=== PATIENT | male | born 1955 | race Caucasian/White ===

== ENCOUNTER 2021-05-04 21:57 | Inpatient (IN) | payer MEDICAID ==
--- NOTE | 2021-05-04 22:01 | ED ---
Recheck HPI - General Stated Complaint: Covid+ Time Seen by Provider: 05/04/21 21:59 Source: RN notes reviewed, old records reviewed Mode of arrival: EMS Limitations: no limitations - History of Present Illness Initial Comments: This is a 65-year-old male who is accepted in transfer. Patient comes from outside facility for known coronavirus positive. Severely hypoxic although not significantly short of breath. Patient is been on Decadron for 5-6 days for coronavirus does have no pneumonia and his been having increased blood sugars. Patient just feeling weak and a little fatigue and around to emergency department, presents by EMS, history obtained from EMS and patient's transfer paperwork. Patient denying any current chest pain, currently afebrile. MD Complaint: abnormal lab (Known coronavirus positive) -: days(s) (5) Returns Today for: other (Shortness of breath) Symptoms Since Prior Visit: fever Context: planned re-check Associated Symptoms: fever, chills, shortness of breath, malaise Treatments Prior to Arrival: other medications - Related Data Allergies Allergy/AdvReac Type Severity Reaction Status Date / Time No Known Allergies Allergy Verified 05/04/21 22:34 Review of Systems ROS Statement: Those systems with pertinent positive or pertinent negative responses have been documented in the HPI. ROS Other: All systems not noted in ROS Statement are negative. General Exam General appearance: alert, in no apparent distress, anxious Head exam: Present: atraumatic, normocephalic, normal inspection Eye exam: Present: normal appearance, PERRL, EOMI. Absent: scleral icterus, conjunctival injection, periorbital swelling ENT exam: Present: normal exam, mucous membranes moist Neck exam: Present: normal inspection. Absent: tenderness, meningismus, lymphadenopathy Respiratory exam: Present: normal lung sounds bilaterally. Absent: respiratory distress, wheezes, rales, rhonchi, stridor Cardiovascular Exam: Present: regular rate, normal rhythm, normal heart sounds. Absent: systolic murmur, diastolic murmur, rubs, gallop, clicks GI/Abdominal exam: Present: soft, normal bowel sounds. Absent: distended, tenderness, guarding, rebound, rigid Extremities exam: Present: normal inspection, full ROM, normal capillary refill. Absent: tenderness, pedal edema, joint swelling, calf tenderness Back exam: Present: normal inspection Neurological exam: Present: alert, oriented X3, CN II-XII intact Psychiatric exam: Present: normal affect, normal mood Skin exam: Present: warm, dry, intact, normal color. Absent: rash Course Vital Signs 05/04/21 22:25 Temperature 98.1 F Pulse Rate 86 Respiratory 20 Rate Blood Pressure 122/77 O2 Sat by Pulse 82 L Oximetry - Reevaluation(s) Reevaluation #1: 05/04/21 22:56 Medical records reviewed 05/04/21 22:56 Transferring paperwork is reviewed Reevaluation #2: 05/04/21 22:56 Patient's oxygenation is improving about 90 on high flow Reevaluation #3: 05/04/21 22:56 patient is in no significant rust for distress or tachypnea state, not fatigued or tired Reevaluation #4: 05/04/21 22:56 Patient has not been vaccinated - Consultations Consultation #1: Spoke with sound who will admit this patient Medical Decision Making - Medical Decision Making 65 male positive coronavirus. Patient is no medical and has not been vaccinated, patient also hyperglycemic secondary to steroid use patient will be admitted - Radiology Data Radiology results: report reviewed (Chest x-rays positive for covert and pneumonia), image reviewed Critical Care Time Critical Care Time: Yes Total Critical Care Time: 31 Disposition Clinical Impression: Acute pulmonary edema, Pneumonia due to COVID-19 virus, Hyperglycemia, Hypoxia Disposition: ADMITTED IP TO THIS HOSP Condition: Serious Is patient prescribed a controlled substance at d/c from ED?: No Referrals: None,Stated [Primary Care Provider] - 1-2 days
[2021-05-04] MEDS ORDERED: ACETAMINOPHEN TAB 325 MG TAB PO PRN (22:13)
[2021-05-04] MEDS ORDERED: SODIUM CHLORIDE 0.9% 1,000 ML IV STA ×2 (22:14)
[2021-05-04] MEDS ORDERED: NALOXONE 0.4 MG/ML 1 ML VIAL IV PRN (22:53)
[2021-05-04] MEDS ORDERED: ALBUTEROL HFA INHALER INHALATION STA (22:53)
--- NOTE | 2021-05-04 22:58 | XR ---
EXAMINATION TYPE: XR chest 1V portable DATE OF EXAM: 05/04/2021 COMPARISON: 04/26/2021 HISTORY: Difficulty breathing TECHNIQUE: Single view FINDINGS: There is coarse interstitial density in the mid and lower lung yancey. Heart is borderline enlarged. There is no definite pleural effusion. Bony thorax is intact. IMPRESSION: There is some interstitial pneumonia in the mid and lower lung yancey that is increased c ompared to the outside comparison exam from 3 hours ago.
[2021-05-05] MEDS ORDERED: DEXAMETHASONE SOD PHOSPHATE 4 MG/ML 1 ML VIAL IV SCH
--- NOTE | 2021-05-05 03:15 | P.HPIM ---
History of Present Illness H&P Date: 05/05/21 Patient is a 65-year-old male with a PMH of hypertension, hyperlipidemia type II DM who was transferred from [facility] where he presented earlier today with complaints of shortness of breath and fatigue. The patient reports that over the past 1-2 weeks, he has been having gradually worsening of symptoms. He had tested positive for COVID-19 on April 29. He reports significantly decreased exercise tolerance and anorexia with poor oral intake. Also reports chills with occasional diarrhea. He however denied chest pain, shortness of breath, cough, nausea, vomiting. Denied headaches, weakness, numbness, tingling, visual disturbances. As per the transferring facility docu mentation, the patient was noted to be 64% on room air upon arrival at that facility and was immediately started on high flow nasal cannula. He was also noted to be hypoglycemic with blood glucose 754, and remaining laboratory evaluation showing troponin of less than 0.017, WBC count 5.69, hemoglobin 14.4, platelets 451, BUN 70, creatinine 3.89, sodium 128, potassium 4.5, chloride 88, CO2 15, AST 32, ALT 27, anion gap 25, osmolality 314, lactic acid 4.3, magnesium 2.8, proBNP 305, and INR 1.4. The patient was subsequently transferred to [facility] for COVID-19 pneumonia, DKA, and GIN. Chest x-ray at our facility revealed an atypical pneumonia pattern. Review of systems: Pertinent positives and negatives as discussed in HPI, a complete review of systems was performed and all other systems are negative. Physical examination: General: non toxic, in mild respiratory distress, appears at stated age, obese, on high flow nasal cannula Derm: no unusual rashes/lesions no unusual ecchymoses, warm, dry Head: atraumatic, normocephalic, symmetric Eyes: EOMI, no lid lag, anicteric sclera, pupils equal round reactive to light ENT: Nose and ears atraumatic, no thrush, no pharyngeal erythema Neck: No thyromegaly, no cervical lymphadenopathy, trachea midline, supple Mouth: no lip lesion, mucus membranes moist Cardiovascular: S1S2 reg, no murmur, positive posterior tibial pulse bilateral, no edema, capillary refill less than 2 seconds Lungs: Diffuse coarse breath sounds throughout, no wheezing or rales noted, no accessory muscle use Abdominal: soft, nontender to palpation, no guarding, no appreciable organomegaly, normal bowel sounds Ext: no gross muscle atrophy, muscle strength 5 out of 5 in all 4 extremities grossly, no contractures, Neuro: CN II-XI grossly intact, light touch intact all 4 extremities, finger to nose within normal limits, Psych: Alert, oriented, appropriate affect Assessment/plan COVID-19 pneumonitis with acute hypoxic respiratory failure -Continue with Decadron -Zinc, vitamin C, vitamin D, melatonin -Pulmonary consult -Supplemental oxygen -Isolation precautions Mild DKA -Monitor electrolytes -Lispro insulin sliding scale with blood glucose monitoring -Check A1c -IV fluids -Hold oral hypoglycemics GIN on chronic kidney disease -Likely secondary to poor oral intake -Continue with IV fluids and monitor for now Hyponatremia, likely pseudohyponatremia in setting of hyperglycemia -Monitor BMP for now Chronic conditions: Hypertension, hyperlipidemia -Continue with home meds DVT prophylaxis -Lovenox subq The patient is admitted with an anticipated greater than 2 midnight stay for evaluation of COVID CODE STATUS: Full Code Discussed with: patient Anticipated discharge date: 3-[address]: Home Past Medical History - Past Family History Father Family Medical History: Hyperlipidemia Medications and Allergies Home Medications Medication Instructions Recorded Confirmed Type Atorvastatin [Lipitor] 20 mg PO HS 05/04/21 05/04/21 History Fenofibrate Nanocrystallized 145 mg PO DAILY 05/04/21 05/04/21 History [Fenofibrate] Metoprolol Tartrate [Lopressor] 100 mg PO BID 05/04/21 05/04/21 History Pioglitazone [Actos] 45 mg PO DAILY 05/04/21 05/04/21 History glyBURIDE/METFORMIN HCL 2 tab PO BID 05/04/21 05/04/21 History [glyBURIDE/METFORMIN HCL 5-500 mg] hydroCHLOROthiazide [Hydrodiuril] 12.5 mg PO DAILY 05/04/21 05/04/21 History sitaGLIPtin PHOSPHATE [Januvia] 100 mg PO DAILY 05/04/21 05/04/21 History Allergies Allergy/AdvReac Type Severity Reaction Status Date / Time No Known Allergies Allergy Verified 05/04/21 23:16 Physical Exam Vitals: Vital Signs Temp Pulse Resp BP Pulse Ox 05/04/21 23:37 93 L 05/04/21 22:33 75 20 136/80 90 L 05/04/21 22:25 98.1 F 86 20 122/77 82 L Intake and Output 05/04/21 05/04/21 05/05/21 14:59 22:59 06:59 Other: Weight 99.79 kg
[2021-05-05 03:27] LABS: Glucose,Whole Blood 587 mg/dL (75-99)
[2021-05-05 04:01] LABS: Calcium 8.8 mg/dL (8.4-10.2); Potassium 5.2 mmol/L (3.5-5.1)
[2021-05-05 06:41] LABS: Albumin 3.1 g/dL (3.5-5.0); Calcium 8.9 mg/dL (8.4-10.2); Magnesium 2.6 mg/dL (1.6-2.3); Phosphorus 5.4 mg/dL (2.5-4.5); Potassium 4.8 mmol/L (3.5-5.1); Total Bilirubin 0.5 mg/dL (0.2-1.3); Total Protein 5.8 g/dL (6.3-8.2)
[2021-05-05 06:47] LABS: Basophils # (A) 0.1 k/uL (0-0.2); Basophils % (A) 1 %; Eosinophils % (A) 0 %; HGB 13.1 gm/dL (13.0-17.5); Hypochromasia Moderate; Lymphocytes # (A) 0.5 k/uL (1.0-4.8); Lymphocytes % (A) 11 %; MCH 29.4 pg (25.0-35.0); MCHC 30.6 g/dL (31.0-37.0); MCV 96.1 fL (80.0-100.0); Mean Platelet Volume 7.9; Monocytes # (A) 0.2 k/uL (0-1.0); Monocytes % (A) 3 %; Neutrophils # (A) 3.9 k/uL (1.3-7.7); Neutrophils % (A) 81 %; Platelet Count 477 k/uL (150-450); RBC 4.47 m/uL (4.30-5.90); RDW 14.6 % (11.5-15.5); WBC 4.8 k/uL (3.8-10.6)
[2021-05-05] MEDS: SODIUM CHLORIDE 0.9% 1,000 ML IV SCH ×5 (06:55→23:01)
[2021-05-05] MEDS ORDERED: INSULIN ASPART (NovoLOG) 100 UNIT/ML VIAL SQ SCH ×2 (07:30)
[2021-05-05] MEDS ORDERED: Potassium Replacement Protocol 1 EACH MISC MISCELLANE PRN (08:00)
[2021-05-05] MEDS ORDERED: Magnesium Replacement Protocol 1 EACH MISC MISCELLANE PRN (08:00)
[2021-05-05] MEDS ORDERED: INSULIN REGULAR BOLUS (FROM DRIP BAG) IV ONE (08:00)
[2021-05-05] MEDS: ALBUTEROL HFA INHALER INHALATION SCH ×4 (08:19→20:06)
[2021-05-05] MEDS: ZINC SULFATE 220 MG CAP PO SCH (08:42)
[2021-05-05] MEDS: CHOLECALCIFEROL 25 MCG (1000 IU) TABLET PO SCH (08:42)
[2021-05-05] MEDS: ENOXAPARIN 40 MG/0.4 ML SYRINGE SQ SCH (08:42)
[2021-05-05] MEDS: ASCORBIC ACID 500 MG TAB PO SCH (08:42)
[2021-05-05] MEDS ORDERED: REMDESIVIR 200 MG in SODIUM CHLORIDE 0.9% 250 ML IVPB ONE (08:45)
[2021-05-05] MEDS ORDERED: DEXAMETHASONE SOD PHOSPHATE 10 MG/ML 1 ML VIAL IV SCH (09:00)
[2021-05-05] MEDS ORDERED: dexAMETHasone 2 MG TAB PO SCH (09:00)
--- NOTE | 2021-05-05 09:16 | XR ---
EXAMINATION TYPE: XR chest 1V DATE OF EXAM: 05/05/2021 COMPARISON: 05/04/2021 HISTORY: Difficulty breathing FINDINGS: There are bilateral pleural effusions with cardiomegaly and bibasilar infiltrate. There is a diffuse interstitial pattern. IMPRESSION: 1. Bilateral infiltrate and pleural effusion correlate for pneumonia versus CHF with pulmonary edema.
[2021-05-05 09:19] LABS: VBG PH 7.3 (7.31-7.41)
[2021-05-05] MEDS: INSULIN REGULAR 100 UNIT in SODIUM CHLORIDE 0.9% 100 ML IV SCH ×3 (09:21→21:57)
[2021-05-05 09:37] LABS: Phosphorus 5.2 mg/dL (2.5-4.5); Potassium 5.2 mmol/L (3.5-5.1)
[2021-05-05 09:40] LABS: INR 1.1 (<1.2); Prothrombin Time 11.7 sec (9.0-12.0)
[2021-05-05 10:16] LABS: Glucose,Whole Blood >600 mg/dL (75-99)
[2021-05-05 10:30] LABS: C Reactive Protein 17.4 mg/dL (<1.0)
[2021-05-05 10:59] LABS: Glucose,Whole Blood >600 mg/dL (75-99)
--- NOTE | 2021-05-05 11:30 | P.CNPUL ---
History of Present Illness Consult date: 05/05/21 Reason for consult: dyspnea, pneumonia History of present illness: 65-year-old male patient transferred from [facility] because of a COVID-19 related pneumonia. The patient became symptomatic approximately 6 days ago. He has a son at home was also infected with COVID-19. He developed tiredness, fatigue, fever, increased dyspnea cough and his condition progressively got worse and for that reason he ended up coming to [facility] and following that he got transferred to us for further evaluation and treatment. Note that he was tested positive on 04/26/2021. He has been receiving Decadron for the past 5-6 days. He did not see any significant improvement. His condition was progressively getting worse. I saw this patient in intensive care unit. After being on the regular oxygen, he was placed on high flow oxygen 6 L with an FiO2 of 90% to bring his saturation above 90%. Chest x-ray showing diffuse bilateral pulmonary infiltrates mainly involving the lower lobes. White cell count was at 4.8. His hemoglobin was at 13.9. Glucose was 673. LDH level was 1284, CRP level was 17.4, his d-dimer was at 1.23. He has chronic kidney disease along with diabetes and hypertension. He has a BUN of 72 coronary creatinine of 2.97. His blood sugar was above 600 and he was started on a insulin drip for blood sugar control which is currently running at 10 units an hour. He is also on normal saline at rate of 200 mL an hour. He is lethargic. Is responsive his communicating. No focal neurological deficits. No other complaints otherwise for now. He is on Decadron 6 mg daily. He is on also on Lovenox 40 mg subcu daily. Review of Systems Constitutional: Reports fatigue, Reports fever, Reports lethargy, Reports poor appetite, Reports weakness Eyes: denies as per HPI, denies blurred vision, denies bulging eye, denies decreased vision, denies diplopia, denies discharge, denies dry eye, denies irritation, denies itching, denies pain, denies photophobia, denies loss of peripheral vision, denies loss of vision, denies tunnel vision/blind spots Ears: deny: decreased hearing, ear discharge, earache, tinnitus Ears, nose, mouth and throat: Reports as per HPI Breasts: absent: as per HPI, gynecomastia Cardiovascular: Reports decreased exercise tolerance, Reports dyspnea on exertion Respiratory: Reports cough, Reports dyspnea Genitourinary: Reports as per HPI Musculoskeletal: Reports as per HPI, Reports muscle weakness Musculoskeletal: absent: ankle pain, ankle stiffness, ankle swelling, as per HPI, elbow pain, elbow stiffness, elbow swelling, foot pain, foot stiffness, foot swelling, hand pain, hand stiffness, hand swelling, hip pain, hip stiffness, hip swelling, knee pain, knee stiffness, knee swelling, shoulder pain, shoulder stiffness, shoulder swelling, wrist pain, wrist stiffness, wrist swelling Integumentary: Reports as per HPI Neurological: Reports as per HPI, Reports weakness Psychiatric: Reports as per HPI Endocrine: Reports as per HPI Allergic/Immunologic: Reports as per HPI Past Medical History Past Medical History: Diabetes Mellitus, Hyperlipidemia, Hypertension, Renal Disease Additional Past Surgical History / Comment(s): hernia surgery - Past Family History Father Family Medical History: Hyperlipidemia Medications and Allergies Home Medications Medication Instructions Recorded Confirmed Type Atorvastatin [Lipitor] 20 mg PO HS 05/04/21 05/04/21 History Fenofibrate Nanocrystallized 145 mg PO DAILY 05/04/21 05/04/21 History [Fenofibrate] Metoprolol Tartrate [Lopressor] 100 mg PO BID 05/04/21 05/04/21 History Pioglitazone [Actos] 45 mg PO DAILY 05/04/21 05/04/21 History glyBURIDE/METFORMIN HCL 2 tab PO BID 05/04/21 05/04/21 History [glyBURIDE/METFORMIN HCL 5-500 mg] hydroCHLOROthiazide [Hydrodiuril] 12.5 mg PO DAILY 05/04/21 05/04/21 History sitaGLIPtin PHOSPHATE [Januvia] 100 mg PO DAILY 05/04/21 05/04/21 History Allergies Allergy/AdvReac Type Severity Reaction Status Date / Time No Known Allergies Allergy Verified 05/04/21 23:16 Physical Exam Vitals: Vital Signs Temp Pulse Pulse Resp BP BP Pulse Ox 05/05/21 11:00 78 28 H 185/81 93 L 05/05/21 10:45 84 33 H 141/74 90 L 05/05/21 10:30 75 33 H 141/74 91 L 05/05/21 10:25 98.1 F 89 20 144/80 83 L 07/29/21 10:15 85 27 H 89 L 05/05/21 08:00 72 20 144/80 05/05/21 06:20 89 16 144/80 99 05/05/21 04:09 88 L 05/05/21 02:33 73 20 135/83 90 L 05/05/21 01:33 74 20 139/85 89 L 05/05/21 00:33 71 22 135/78 88 L 05/04/21 23:37 93 L 05/04/21 22:33 75 20 136/80 90 L 05/04/21 22:25 98.1 F 86 20 122/77 82 L Intake and Output 05/04/21 05/05/21 05/05/21 22:59 06:59 14:59 Other: Voiding Method Urinal Weight 99.79 kg lethargic, sleepy, calm and comfortable, does not seem to be in acute breathing distress and the patient is currently on high flow oxygen Head exam was generally normal. There was no scleral icterus or corneal arcus. Mucous membranes were moist. Neck was supple and without jugular venous distension, thyromegaly, or carotid bruits. Carotids were easily palpable bilaterally. There was no adenopathy. Lungs sounds are diminished bilaterally and the patient has crackles in lung bases, overall air entry is equal and symmetrical. Cardiac exam revealed the PMI to be normally situated and sized. The rhythm was regular and no extrasystoles were noted during several minutes of auscultation. The first and second heart sounds were normal and physiologic splitting of the second heart sound was noted. There were no murmurs, rubs, clicks, or gallops. Abdominal exam revealed normal bowel sounds. The abdomen was soft, non-tender, and without masses, organomegaly, or appreciable enlargement of the abdominal aorta. Examination of the extremities revealed easily palpable radial, femoral and pedal pulses. There was no cyanosis, clubbing or edema. Examination of the skin revealed no evidence of significant rashes, suspicious appearing nevi or other concerning lesions. Neurologically the patient is global weakness. Otherwise there is no focal neurological deficit admitted this point in time he is awake and oriented 3. Results - Laboratory Findings CBC and BMP: 05/05/21 06:16 05/05/21 08:03 PT/INR, D-dimer PT 11.7 sec (9.0-12.0) 05/05/21 08:03 INR 1.1 (<1.2) 05/05/21 08:03 D-Dimer 1.23 mg/L FEU (<0.60) H 05/05/21 08:03 Abnormal lab findings: Abnormal Labs 05/05/21 05/05/21 05/05/21 03:15 03:26 06:16 MCHC 30.6 L Plt Count 477 H Lymphocytes # 0.5 L D-Dimer VBG pH VBG pCO2 VBG HCO3 Sodium 132 L Potassium 5.2 H Carbon Dioxide 11 L BUN 66 H Creatinine 2.95 H Glucose 647 H* POC Glucose (mg/dL) 587 H Phosphorus Magnesium Lactate Dehydrogenase C-Reactive Protein Total Protein Albumin 05/05/21 05/05/21 05/05/21 06:16 08:03 08:03 MCHC Plt Count Lymphocytes # D-Dimer 1.23 H VBG pH VBG pCO2 VBG HCO3 Sodium 136 L 135 L Potassium 5.2 H Carbon Dioxide 11 L 10 L BUN 69 H 72 H Creatinine 3.00 H 2.97 H Glucose 673 H* 677 H* POC Glucose (mg/dL) Phosphorus 5.4 H 5.2 H Magnesium 2.6 H Lactate Dehydrogenase 1284 H C-Reactive Protein 17.4 H Total Protein 5.8 L Albumin 3.1 L 05/05/21 05/05/21 05/05/21 08:26 10:05 10:57 MCHC Plt Count Lymphocytes # D-Dimer VBG pH 7.30 L VBG pCO2 26 L VBG HCO3 12 L Sodium Potassium Carbon Dioxide BUN Creatinine Glucose POC Glucose (mg/dL) >600 H >600 H Phosphorus Magnesium Lactate Dehydrogenase C-Reactive Protein Total Protein Albumin - Diagnostic Findings Chest x-ray: image reviewed Assessment and Plan Plan: 1 acute COVID-19 related pneumonia. The patient was tested positive on 04/26/2021. Symptoms started approximately 6 days ago and he developed progre ssive constitutional symptoms, progressive respiratory failure, progressive hypoxic respiratory failure. He has been taken Decadron on outpatient basis for the past 4-5 days. The patient is on Nexium extubated. 2 acute hypoxic respiratory failure currently on high flow oxygen 60 L with an FiO2 of 90% 3 shortness of breath secondary to above 4 diabetes mellitus with steroid-induced hyperglycemia currently on an insulin drip for blood sugar control 5 chronic kidney disease, likely diabetic nephropathy 6 hypertension 7 hyperlipidemia 8 elevated inflammatory markers secondary to COVID-19 related pneumonia. Plan Keep high flow oxygen and titrate the flow to maintain a saturation above 90% Continue Decadron 6 mg IV every 24 hours Start the patient on Tocilizumab vent protocol With the patient on Lovenox 40 mg subcu every 24 hours Put the patient on zinc oxide, vitamin C and vitamin D Proceed monitoring respiratory status and daily chest x-rays High risk of developing active dependent respiratory failure because of his progressive rapid worsening in his respiratory status over this past 1 week Note that the patient is not vaccinated for COVID-19 Insulin drip for blood sugar control IV fluids at the rate of 150 mL an hour of normal saline for the next 24 hours and it used to rate accordingly following that Hold oral hypoglycemic medications resume metoprolol given a dose of 100 mg po BID We'll continue to follow Time with Patient: Greater than 30
[2021-05-05] MEDS ORDERED: METOPROLOL TARTRATE 50 MG TAB PO SCH (12:00)
[2021-05-05 12:22] LABS: Glucose,Whole Blood >600 mg/dL (75-99)
[2021-05-05 12:23] LABS: Potassium 3.8 mmol/L (3.5-5.1)
[2021-05-05 13:02] LABS: Glucose,Whole Blood >600 mg/dL (75-99)
[2021-05-05] MEDS ORDERED: TOCILIZUMAB 800 MG in SODIUM CHLORIDE 0.9% 60 ML IV ONE (13:30)
[2021-05-05 14:07] LABS: Glucose,Whole Blood 501 mg/dL (75-99)
--- NOTE | 2021-05-05 14:46 | P.PN ---
Subjective Progress Note Date: 05/05/21 (Delayed charting seen at 8 AM.) Principal diagnosis: shortness of breath Patient is a 65-year-old male with past medical history of diabetes mellitus type 2, hypertension, and dyslipidemia who initially presented to [facility] where he was diagnosed with DKA and COVID-19. He was subsequently transferred here secondary to hypoxia. He initially tested posi tive for Covid on April 29. On arrival to the ER here sodium 132, potassium 5.2, carbon dioxide 11, anion gap 23, BUN 66, creatinine 2.95, glucose of 467. He was also noted to have bilateral interstitial infiltrates on chest x-ray. He was started on Decadron as well as sliding scale insulin. In the morning of 05/05 he was hypoxic despite airvo and nonrebreather when getting up to go to the bathroom. Laboratory analysis was reviewed which showed severe DKA with a carbon dioxide of 11 and an anion gap of 23. Patient was started on an insulin drip. Pulmonary critical care was contacted and arrangements were made to admit the patient to the ICU. He is also started on Remdesivir and consideration were made for Toci. Patient seen and examined at bedside. He reports that he is feeling s ignificantly short of breath and very thirsty. He denies any chest discomfort. He has not been vaccinated against COVID-19. He denies any nausea or vomiting. He reports he has never had DKA in the past. He is very hard of hearing. General: Ill appearing, moderate distress], appears at stated age Derm: warm, dry Head: atraumatic, normocephalic, symmetric Eyes: EOMI, no lid lag, anicteric sclera Mouth: no lip lesion, mucus membranes moist Cardiovascular: S1S2 reg, no murmur, positive posterior tibial pulse bilateral, Lungs: Rhonchi bilaterally, 3 word conversational dyspnea, sternal retractions, on airvo Abdominal: soft, nontender to palpation, no guarding, no appreciable organomegaly Ext: no gross muscle atrophy, no edema, no contractures Neuro: CN II-XI grossly intact, no focal neuro deficits Psych: Alert, oriented, appropriate affect COVID-19 pneumonia with acute hypoxic respiratory failure -Start Rem and consider toic -Decadron -Check stat CRP and LDH -Transferred ICU -Pulmonary consultation -Patient wouldn't want to be intubated if necessary -Case discussed with pulmonary Diabetic ketoacidosis -Start insulin drip -Every 4 hour electrolytes -IV fluid resuscitation changed to normal saline at 200 -Check A1c -Hold oral diabetic medications Hyperkalemia -Secondary to fluid shift -Follow electrolytes Acute kidney injury versus chronic kidney disease -Insert Ag -Strict I's and O's -Avoid nephrotoxic agents -Fluid resuscitation -If no improvement in creatinine in a.m. consult nephrology Hypertension, controlled -Secondary to DKA will hold hydrochlorothiazide -Resume metoprolol Dyslipidemia -Fenofibrate on hold -Resume statins On the morning of 05/05 he was hypoxic despite airflow and nonrebreather when getting up to go to the bathroom. Laboratory analysis was reviewed which showed severe DKA with a carbon dioxide of 11 and an anion gap of 23. Patient was started on an insulin drip. Pulmonary critical care was contacted and arrangements were made to admit the patient to the ICU. He is also started on Remdesivir and consideration were made for Toci. Stat labs were ordered and reviewed. Case discussed with Dr. vera and by myself. A total of 35 minutes of critical care time was spent on this complex patient managing his DKA. Active Medications Acetaminophen (Acetaminophen Tab 325 Mg Tab) 650 mg PO Q4HR PRN PRN Reason: Fever>101 Albuterol Sulfate (Albuterol Hfa Inhaler) 2 puff INHALATION RT-QID [facility] Last Admin: 05/05/21 11:44 Dose: 2 puff Documented by: Ascorbic Acid (Ascorbic Acid 500 Mg Tab) 1,000 mg PO DAILY [facility] Last Admin: 05/05/21 08:42 Dose: 1,000 mg Documented by: Cholecalciferol (Cholecalciferol 25 Mcg (1000 Iu) Tablet) 125 mcg PO DAILY [facility] Last Admin: 05/05/21 08:42 Dose: 125 mcg Documented by: Dexamethasone Sodium Phosphate (Dexamethasone Sod Phosphate 10 Mg/Ml 1 Ml Vial) 6 mg IV DAILY [facility] Last Admin: 05/05/21 10:37 Dose: 6 mg Documented by: Enoxaparin Sodium (Enoxaparin 40 Mg/0.4 Ml Syringe) 40 mg SQ DAILY [facility] Last Admin: 05/05/21 08:42 Dose: 40 mg Documented by: Insulin Human Regular 100 unit (/ Sodium Chloride) 101 mls @ 10.079 mls/hr IV .Q10H2M [facility]; Protocol Last Titration: 05/05/21 14:14 Dose: 0.14 units/kg/hr, 14 mls/hr Documented by: Sodium Chloride (Saline 0.9%) 1,000 mls @ 150 mls/hr IV .Q6H40M [facility] Last Admin: 05/05/21 13:15 Dose: 150 mls/hr Documented by: Melatonin (Melatonin 5 Mg Tablet) 5 mg PO [facility] Metoprolol Tartrate (Metoprolol Tartrate 50 Mg Tab) 100 mg PO BID [facility] Last Admin: 05/05/21 12:07 Dose: 100 mg Documented by: Miscellaneous Information (Magnesium Replacement Protocol 1 Each Misc) 1 each MISCELLANE DAILY PRN; Protocol PRN Reason: Per Protocol Miscellaneous Information (Potassium Replacement Protocol 1 Each Misc) 1 each MISCELLANE DAILY PRN PRN Reason: Per Protocol Naloxone HCl (Naloxone 0.4 Mg/Ml 1 Ml Vial) 0.2 mg IV Q2M PRN PRN Reason: Opioid Reversal Zinc Sulfate (Zinc Sulfate 220 Mg Cap) 220 mg PO DAILY [facility] Last Admin: 05/05/21 08:42 Dose: 220 mg Documented by: Objective - Vital Signs Vital signs: Vital Signs Temp 98.4 F 05/05/21 10:45 Pulse 55 L 05/05/21 14:00 Resp 26 H 05/05/21 14:00 BP 171/89 05/05/21 14:00 Pulse Ox 85 L 05/05/21 14:00 Intake & Output 05/04/21 05/05/21 05/05/21 18:59 06:59 18:59 Intake Total 922.258 Output Total 695 Balance 227.258 Weight 99.79 kg 99.79 kg Intake: IV 600 Sodium Chloride 0.9% 1, 600 000 ml @ 150 mls/hr IV . Q6H40M [facility] Rx#:[id number] Intake, IV Titration 322.258 Amount Insulin Regular 100 unit 72.258 In Sodium Chloride 0.9% 100 ml @ 0.1 UNITS/KG/HR 10.079 mls/hr IV .Q10H2M [facility] Rx#:[id number] Remdesivir 200 mg In 250 Sodium Chloride 0.9% 250 ml @ 250 mls/hr IVPB ONCE ONE Rx#:[id number] Output: Urine 695 Other: Voiding Method Urinal - Labs CBC & Chem 7: 05/05/21 06:16 05/05/21 11:47 Labs: Abnormal Lab Results - Last 24 Hours (Table) 05/05/21 05/05/21 05/05/21 Range/Units 03:15 03:26 06:16 MCHC 30.6 L (31.0-37.0) g/dL Plt Count 477 H (150-450) k/uL Lymphocytes # 0.5 L (1.0-4.8) k/uL D-Dimer (<0.60) mg/L FEU VBG pH (7.31-7.41) VBG pCO2 (37-51) mmHg VBG HCO3 (24-28) mmol/L Sodium 132 L (137-145) mmol/L Potassium 5.2 H (3.5-5.1) mmol/L Carbon Dioxide 11 L (22-30) mmol/L BUN 66 H (9-20) mg/dL Creatinine 2.95 H (0.66-1.25) mg/dL Glucose 647 H* (74-99) mg/dL POC Glucose (mg/dL) 587 H (75-99) mg/dL Phosphorus (2.5-4.5) mg/dL Magnesium (1.6-2.3) mg/dL Lactate Dehydrogenase (313-618) U/L C-Reactive Protein (<1.0) mg/dL Total Protein (6.3-8.2) g/dL Albumin (3.5-5.0) g/dL 05/05/21 05/05/21 05/05/21 Range/Units 06:16 08:03 08:03 MCHC (31.0-37.0) g/dL Plt Count (150-450) k/uL Lymphocytes # (1.0-4.8) k/uL D-Dimer 1.23 H (<0.60) mg/L FEU VBG pH (7.31-7.41) VBG pCO2 (37-51) mmHg VBG HCO3 (24-28) mmol/L Sodium 136 L 135 L (137-145) mmol/L Potassium 5.2 H (3.5-5.1) mmol/L Carbon Dioxide 11 L 10 L (22-30) mmol/L BUN 69 H 72 H (9-20) mg/dL Creatinine 3.00 H 2.97 H (0.66-1.25) mg/dL Glucose 673 H* 677 H* (74-99) mg/dL POC Glucose (mg/dL) (75-99) mg/dL Phosphorus 5.4 H 5.2 H (2.5-4.5) mg/dL Magnesium 2.6 H (1.6-2.3) mg/dL Lactate Dehydrogenase 1284 H (313-618) U/L C-Reactive Protein 17.4 H (<1.0) mg/dL Total Protein 5.8 L (6.3-8.2) g/dL Albumin 3.1 L (3.5-5.0) g/dL 05/05/21 05/05/21 05/05/21 Range/Units 08:26 10:05 10:57 MCHC (31.0-37.0) g/dL Plt Count (150-450) k/uL Lymphocytes # (1.0-4.8) k/uL D-Dimer (<0.60) mg/L FEU VBG pH 7.30 L (7.31-7.41) VBG pCO2 26 L (37-51) mmHg VBG HCO3 12 L (24-28) mmol/L Sodium (137-145) mmol/L Potassium (3.5-5.1) mmol/L Carbon Dioxide (22-30) mmol/L BUN (9-20) mg/dL Creatinine (0.66-1.25) mg/dL Glucose (74-99) mg/dL POC Glucose (mg/dL) >600 H >600 H (75-99) mg/dL Phosphorus (2.5-4.5) mg/dL Magnesium (1.6-2.3) mg/dL Lactate Dehydrogenase (313-618) U/L C-Reactive Protein (<1.0) mg/dL Total Protein (6.3-8.2) g/dL Albumin (3.5-5.0) g/dL 05/05/21 05/05/21 05/05/21 Range/Units 11:47 12:18 13:01 MCHC (31.0-37.0) g/dL Plt Count (150-450) k/uL Lymphocytes # (1.0-4.8) k/uL D-Dimer (<0.60) mg/L FEU VBG pH (7.31-7.41) VBG pCO2 (37-51) mmHg VBG HCO3 (24-28) mmol/L Sodium (137-145) mmol/L Potassium (3.5-5.1) mmol/L Carbon Dioxide 11 L (22-30) mmol/L BUN 69 H (9-20) mg/dL Creatinine 3.00 H (0.66-1.25) mg/dL Glucose 550 H* (74-99) mg/dL POC Glucose (mg/dL) >600 H >600 H (75-99) mg/dL Phosphorus (2.5-4.5) mg/dL Magnesium (1.6-2.3) mg/dL Lactate Dehydrogenase (313-618) U/L C-Reactive Protein (<1.0) mg/dL Total Protein (6.3-8.2) g/dL Albumin (3.5-5.0) g/dL 05/05/21 Range/Units 14:05 MCHC (31.0-37.0) g/dL Plt Count (150-450) k/uL Lymphocytes # (1.0-4.8) k/uL D-Dimer (<0.60) mg/L FEU VBG pH (7.31-7.41) VBG pCO2 (37-51) mmHg VBG HCO3 (24-28) mmol/L Sodium (137-145) mmol/L Potassium (3.5-5.1) mmol/L Carbon Dioxide (22-30) mmol/L BUN (9-20) mg/dL Creatinine (0.66-1.25) mg/dL Glucose (74-99) mg/dL POC Glucose (mg/dL) 501 H (75-99) mg/dL Phosphorus (2.5-4.5) mg/dL Magnesium (1.6-2.3) mg/dL Lactate Dehydrogenase (313-618) U/L C-Reactive Protein (<1.0) mg/dL Total Protein (6.3-8.2) g/dL Albumin (3.5-5.0) g/dL
[2021-05-05 14:57] LABS: Hemoglobin A1C 15.3 % (4.0-6.0)
[2021-05-05 15:05] LABS: Glucose,Whole Blood 497 mg/dL (75-99)
[2021-05-05 15:33] LABS: ABG Base Excess -9.1 mmol/L; ABG HCO3 16 mmol/L (21-25); ABG PCO2 25 mmHg (35-45); ABG TCO2 17 mmol/L (19-24); Allen Test Performed? Yes
[2021-05-05 15:34] LABS: ABG PO2 48 mmHg (83-108)
[2021-05-05] MEDS ORDERED: SODIUM BICARB 8.4% 50 ML SYR (1 MEQ/ML) IV STA (15:38)
[2021-05-05 16:02] LABS: Glucose,Whole Blood 437 mg/dL (75-99)
[2021-05-05 16:48] LABS: Phosphorus 2.3 mg/dL (2.5-4.5); Potassium 3.5 mmol/L (3.5-5.1)
[2021-05-05 16:54] LABS: Glucose,Whole Blood 333 mg/dL (75-99)
[2021-05-05 18:09] LABS: Glucose,Whole Blood 279 mg/dL (75-99)
[2021-05-05] MEDS: DEXMEDETOMIDINE/0.9% NACL(PMX) 400 MCG in EMPTY BAG 1 BAG IV SCH ×2 (18:21→22:34)
[2021-05-05 18:48] LABS: Glucose,Whole Blood 223 mg/dL (75-99)
[2021-05-05] MEDS: D5-0.45% NACL WITH KCL 20MEQ/L 1,000 ML IV SCH (18:49)
[2021-05-05] MEDS: ATORVASTATIN 20 MG TAB PO SCH ×2 (20:55→21:39)
[2021-05-05] MEDS: DEXAMETHASONE SOD PHOSPHATE 10 MG/ML 1 ML VIAL IV SCH (20:55)
[2021-05-05] MEDS: MELATONIN 5 MG TABLET PO SCH ×2 (20:55→21:39)
[2021-05-05] MEDS: METOPROLOL TARTRATE 50 MG TAB PO SCH (20:57)
[2021-05-05 20:59] LABS: Potassium 3.4 mmol/L (3.5-5.1)
[2021-05-05 21:29] LABS: Glucose,Whole Blood 168 mg/dL (75-99)
[2021-05-05 21:31] LABS: ABG Base Excess 1.2 mmol/L; ABG HCO3 25 mmol/L (21-25); ABG Oxygen Saturation 94.3 % (94-97); ABG PCO2 37 mmHg (35-45); ABG PH 7.44 (7.35-7.45); ABG PO2 73 mmHg (83-108); ABG TCO2 27 mmol/L (19-24); Allen Test Performed? Yes
[2021-05-05 22:05] LABS: Glucose,Whole Blood 172 mg/dL (75-99)
[2021-05-05] MEDS: hydrALAZINE HCL 20 MG/ML 1 ML VIAL IVP PRN (22:32)
[2021-05-05 23:12] LABS: Glucose,Whole Blood 181 mg/dL (75-99)
[2021-05-06] MEDS: INSULIN REGULAR 100 UNIT in SODIUM CHLORIDE 0.9% 100 ML IV SCH ×3 (00:05→17:39)
[2021-05-06 00:07] LABS: Glucose,Whole Blood 186 mg/dL (75-99)
[2021-05-06] MEDS: D5-0.45% NACL WITH KCL 20MEQ/L 1,000 ML IV SCH ×2 (00:43→08:13)
[2021-05-06 00:56] LABS: Glucose,Whole Blood 166 mg/dL (75-99)
[2021-05-06 02:02] LABS: Glucose,Whole Blood 208 mg/dL (75-99)
[2021-05-06] MEDS: hydrALAZINE HCL 20 MG/ML 1 ML VIAL IVP PRN ×5 (02:07→22:51)
[2021-05-06 03:07] LABS: Glucose,Whole Blood 222 mg/dL (75-99)
[2021-05-06 04:00] LABS: Glucose,Whole Blood 214 mg/dL (75-99)
[2021-05-06 04:39] LABS: Basophils # (A) 0.1 k/uL (0-0.2); Basophils % (A) 1 %; Eosinophils % (A) 0 %; HCT 40.5 % (39.0-53.0); HGB 13.4 gm/dL (13.0-17.5); Lymphocytes # (A) 0.6 k/uL (1.0-4.8); Lymphocytes % (A) 7 %; MCH 29.8 pg (25.0-35.0); MCHC 33.2 g/dL (31.0-37.0); Mean Platelet Volume 7.9; Monocytes # (A) 0.3 k/uL (0-1.0); Monocytes % (A) 4 %; Neutrophils # (A) 6.9 k/uL (1.3-7.7); Neutrophils % (A) 87 %; Phosphorus 2.1 mg/dL (2.5-4.5); Platelet Count 474 k/uL (150-450); Potassium 3.6 mmol/L (3.5-5.1); RDW 14.4 % (11.5-15.5)
[2021-05-06 04:45] LABS: MCV 89.9 fL (80.0-100.0)
[2021-05-06 04:58] LABS: Glucose,Whole Blood 252 mg/dL (75-99)
[2021-05-06 05:32] LABS: ABG HCO3 24 mmol/L (21-25); ABG Oxygen Saturation 92.2 % (94-97); ABG PCO2 32 mmHg (35-45); ABG PH 7.49 (7.35-7.45); ABG PO2 62 mmHg (83-108); ABG TCO2 25 mmol/L (19-24); Allen Test Performed? Yes
[2021-05-06 06:02] LABS: Glucose,Whole Blood 249 mg/dL (75-99)
[2021-05-06] MEDS ORDERED: Potassium Replacement Protocol 1 EACH MISC MISCELLANE PRN (06:15)
[2021-05-06] MEDS: SODIUM CHLORIDE 0.9% 1,000 ML IV SCH ×3 (06:49→11:14)
[2021-05-06] MEDS ORDERED: POTASSIUM CHLORIDE ER 20 MEQ TAB.ER PO SCH (07:00)
[2021-05-06 07:02] LABS: Glucose,Whole Blood 202 mg/dL (75-99)
[2021-05-06] MEDS: DEXMEDETOMIDINE/0.9% NACL(PMX) 400 MCG in EMPTY BAG 1 BAG IV SCH ×2 (07:46→20:25)
[2021-05-06 07:56] LABS: Glucose,Whole Blood 177 mg/dL (75-99)
[2021-05-06] MEDS: ALBUTEROL HFA INHALER INHALATION SCH ×4 (08:01→19:56)
[2021-05-06] MEDS: ZINC SULFATE 220 MG CAP PO SCH (08:12)
[2021-05-06] MEDS: ASCORBIC ACID 500 MG TAB PO SCH (08:13)
[2021-05-06] MEDS: DEXAMETHASONE SOD PHOSPHATE 10 MG/ML 1 ML VIAL IV SCH ×2 (08:13→21:15)
[2021-05-06] MEDS: ENOXAPARIN 40 MG/0.4 ML SYRINGE SQ SCH (08:13)
[2021-05-06] MEDS: CHOLECALCIFEROL 25 MCG (1000 IU) TABLET PO SCH (08:13)
[2021-05-06] MEDS: METOPROLOL TARTRATE 50 MG TAB PO SCH ×2 (08:14→21:16)
[2021-05-06] MEDS: FENOFIBRATE 160 MG TAB PO SCH (08:16)
[2021-05-06 09:09] LABS: Glucose,Whole Blood 208 mg/dL (75-99)
--- NOTE | 2021-05-06 09:49 | XR ---
EXAMINATION TYPE: XR chest 1V portable DATE OF EXAM: 05/06/2021 COMPARISON: 05/05/2021 HISTORY: Shortness of breath FINDINGS: There are bilateral pleural effusions with cardiomegaly and bibasilar infiltrate. There is a diffuse interstitial pattern. Prominence of the right paratracheal stripe indentation of the trachea may rep resent enlarged thyroid or adenopathy correlate clinically IMPRESSION: 1. Diffuse pleural-parenchymal changes correlate for diffuse pneumonia versus CHF with pulmonary stella a. 2. Prominence of the right paratracheal stripe indentation of the trachea may represent enlarged thyr oid or adenopathy correlate clinically.
[2021-05-06] MEDS ORDERED: DEXTROSE 5% IN WATER 1,000 ML IV ONE (10:13)
--- NOTE | 2021-05-06 10:15 | P.PN ---
Subjective Progress Note Date: 05/06/21 Principal diagnosis: COVID 19 65-year-old male patient transferred from [facility] because of a COVID-19 related pneumonia. The patient became symptomatic approximately 6 days ago. He has a son at home was also infected with COVID-19. He developed tiredness, fatigue, fever, increased dyspnea cough and his condition progressively got worse and for that reason he ended up coming to [facility] and following that he got transferred to us for further evaluation and treatment. Note that he was tested positive on 04/26/2021. He has been receiving Decadron for the past 5-6 days. He did not see any significant improvement. His condition was progressively getting worse. I saw this patient in intensive care unit. After being on the regular oxygen, he was placed on high flow oxygen 6 L with an FiO2 of 90% to bring his saturation above 90%. Chest x-ray showing diffuse bilateral pulmonary infiltrates mainly involving the lower lobes. White cell count was at 4.8. His hemoglobin was at 13.9. Glucose was 673. LDH level was 1284, CRP level was 17.4, his d-dimer was at 1.23. He has chronic kidney disease along with diabetes and hypertension. He has a BUN of 72 coronary creatinine of 2.97. His blood sugar was above 600 and he was started on a insulin drip for blood sugar control which is currently running at 10 units an hour. He is also on normal saline at rate of 200 mL an hour. He is lethargic. Is responsive his communicating. No focal neurological deficits. No other complaints otherwise for now. He is on Decadron 6 mg daily. He is on also on Lovenox 40 mg subcu daily. On 05/06/2021 patient seen in follow-up. He is on BiPAP at 14 and 6 and FiO2 of 100%, with a pulse ox of 94%, he is currently on Precedex at 0.4 mics per kilo per minute. Patient was started on Precedex infusion for agitation, and restlessness, trying to remove his BiPAP mask and get up unassisted. He still remains on insulin infusion at 13 units per hour, he continues on steroid scale insulin infusion protocol. His maintenance IV fluids are D5 half-normal saline of potassium chloride at a rate of 150 ML per hour, his oral intake has been very diminished related to poor oxygenation and been BiPAP dependent. Yesterday he was able to get some lunch, but no dinner because of worsening oxygenation. Today's blood gas was reviewed showing pO2 of 61, pCO2 of 31, and pH of 7.49, and this was done on BiPAP support 14/6 and 100%. Today's labs have been reviewed, white blood cell count is 8.0, hemoglobin is 13.4, platelet count is 474, d-dimer has trended up to 3.6, sodium is 142, potassium 3.6, chloride is 112, CO2 is 22, BUN is 54, and creatinine is 1.78, close this morning is 208, LDH was yesterday at 1284, CRP is 17.4. Patient remains on Decadron at 6 mg IV push twice daily, and his Lovenox dose is 40 mg daily. Today's chest x-ray shows bilateral infiltrates and pleural effusion, diffuse interstitial edema, relatively stable in appearance compared to yesterday. Objective - Vital Signs Vital signs: Vital Signs Temp 96.0 F L 05/06/21 08:00 Pulse 57 L 05/06/21 09:00 Resp 23 05/06/21 09:00 BP 155/78 05/06/21 09:00 Pulse Ox 93 L 05/06/21 09:00 Intake & Output 05/05/21 05/06/21 05/06/21 18:59 06:59 18:59 Intake Total 9198.976 3597.847 544.553 Output Total 1150 1808 450 Balance 627.414 102.847 94.553 Weight 99.79 kg 97.4 kg Intake: IV 1200 1674 456 0.9 24 6 Sodium Chloride 0.9% 1, 1200 1650 450 000 ml @ 150 mls/hr IV . Q6H40M FILI Rx#:[id number] Intake, IV Titration 577.414 236.847 88.553 Amount D5-0.45% NaCl with KCl 150 20Meq/l 1,000 ml @ 150 mls/hr IV .Q6H40M FILI Rx# :[id number] Dexmedetomidine/0.9% NaCl 4.823 103.325 42.16 (Pmx) 400 mcg In Empty Bag 1 bag @ Titrate IV . Q0M FILI Rx#:[id number] Insulin Regular 100 unit 112.591 82.567 In Sodium Chloride 0.9% 100 ml @ 0.1 UNITS/KG/HR 10.079 mls/hr IV .Q10H2M COUNTS INCLUDE 234 BEDS AT THE [facility] Rx#:[id number] Insulin Regular 100 unit 50.955 46.393 In Sodium Chloride 0.9% 100 ml @ Per Protocol IV .Q0M COUNTS INCLUDE 234 BEDS AT THE [facility] Rx#:[id number] Remdesivir 200 mg In 250 Sodium Chloride 0.9% 250 ml @ 250 mls/hr IVPB ONCE ONE Rx#:[id number] Tocilizumab 800 mg In 60 Sodium Chloride 0.9% 60 ml @ 100 mls/hr IV ONCE ONE Rx#:[id number] Output: Urine 1150 1808 450 Other: Voiding Method Indwelling Catheter Indwelling Catheter Indwelling Catheter ABP, PAP, CO, CI - Last Documented Arterial Blood Pressure 172/59 - Exam GENERAL EXAM: R [place], but arousable to voice, 65-year-old white male, on BiPAP support with pressures of 14/6 and FiO2 of 100%, and a pulse ox is 94-96% comfortable in no apparent distress. HEAD: Normocephalic/atraumatic. EYES: Normal reaction of pupils, equal size. Conjunctiva pink, sclera white. NOSE: Clear with pink turbinates. THROAT: No erythema or exudates. NECK: No masses, no JVD, no thyroid enlargement, no adenopathy. CHEST: No chest wall deformity. Symmetrical expansion. LUNGS: Equal air entry with coarse bibasilar crackles CVS: Regular rate and rhythm, normal S1 and S2, no gallops, no murmurs, no rubs ABDOMEN: Soft, nontender. No hepatosplenomegaly, normal bowel sounds, no guarding or rigidity. EXTREMITIES: No clubbing, no edema, no cyanosis, 2+ pulses and upper and lower extremities. MUSCULOSKELETAL: Muscle strength and tone normal. SPINE: No scoliosis or deformity SKIN: No rashes CENTRAL NERVOUS SYSTEM: Alert and oriented -3. No focal deficits, tone is normal in all 4 extremities. PSYCHIATRIC: Alert and oriented -3. Appropriate affect. Intact judgment and insight. - Labs CBC & Chem 7: 05/06/21 04:00 05/06/21 04:00 Labs: Abnormal Lab Results - Last 24 Hours (Table) 07/29/21 07/29/21 07/29/21 Range/Units 06:16 08:03 10:05 Plt Count (150-450) k/uL Lymphocytes # (1.0-4.8) k/uL D-Dimer (<0.60) mg/L FEU ABG pH (7.35-7.45) ABG pCO2 (35-45) mmHg ABG pO2 (83-108) mmHg ABG HCO3 (21-25) mmol/L ABG Total CO2 (19-24) mmol/L ABG O2 Saturation (94-97) % Potassium (3.5-5.1) mmol/L Chloride (98-107) mmol/L Carbon Dioxide (22-30) mmol/L BUN (9-20) mg/dL Creatinine (0.66-1.25) mg/dL Glucose (74-99) mg/dL POC Glucose (mg/dL) >600 H (75-99) mg/dL Hemoglobin A1c 15.3 H (4.0-6.0) % Phosphorus (2.5-4.5) mg/dL Ferritin 746.0 H (22.0-322.0) ng/mL C-Reactive Protein 17.4 H (<1.0) mg/dL 05/05/21 05/05/21 05/05/21 Range/Units 10:57 11:47 12:18 Plt Count (150-450) k/uL Lymphocytes # (1.0-4.8) k/uL D-Dimer (<0.60) mg/L FEU ABG pH (7.35-7.45) ABG pCO2 (35-45) mmHg ABG pO2 (83-108) mmHg ABG HCO3 (21-25) mmol/L ABG Total CO2 (19-24) mmol/L ABG O2 Saturation (94-97) % Potassium (3.5-5.1) mmol/L Chloride (98-107) mmol/L Carbon Dioxide 11 L (22-30) mmol/L BUN 69 H (9-20) mg/dL Creatinine 3.00 H (0.66-1.25) mg/dL Glucose 550 H* (74-99) mg/dL POC Glucose (mg/dL) >600 H >600 H (75-99) mg/dL Hemoglobin A1c (4.0-6.0) % Phosphorus (2.5-4.5) mg/dL Ferritin (22.0-322.0) ng/mL C-Reactive Protein (<1.0) mg/dL 05/05/21 05/05/21 05/05/21 Range/Units 13:01 14:05 15:02 Plt Count (150-450) k/uL Lymphocytes # (1.0-4.8) k/uL D-Dimer (<0.60) mg/L FEU ABG pH (7.35-7.45) ABG pCO2 (35-45) mmHg ABG pO2 (83-108) mmHg ABG HCO3 (21-25) mmol/L ABG Total CO2 (19-24) mmol/L ABG O2 Saturation (94-97) % Potassium (3.5-5.1) mmol/L Chloride (98-107) mmol/L Carbon Dioxide (22-30) mmol/L BUN (9-20) mg/dL Creatinine (0.66-1.25) mg/dL Glucose (74-99) mg/dL POC Glucose (mg/dL) >600 H 501 H 497 H (75-99) mg/dL Hemoglobin A1c (4.0-6.0) % Phosphorus (2.5-4.5) mg/dL Ferritin (22.0-322.0) ng/mL C-Reactive Protein (<1.0) mg/dL 05/05/21 05/05/21 05/05/21 Range/Units 15:26 16:00 16:22 Plt Count (150-450) k/uL Lymphocytes # (1.0-4.8) k/uL D-Dimer (<0.60) mg/L FEU ABG pH (7.35-7.45) ABG pCO2 25 L (35-45) mmHg ABG pO2 48 L* (83-108) mmHg ABG HCO3 16 L (21-25) mmol/L ABG Total CO2 17 L (19-24) mmol/L ABG O2 Saturation 83.0 L (94-97) % Potassium (3.5-5.1) mmol/L Chloride (98-107) mmol/L Carbon Dioxide (22-30) mmol/L BUN 71 H (9-20) mg/dL Creatinine 2.38 H (0.66-1.25) mg/dL Glucose (74-99) mg/dL POC Glucose (mg/dL) 437 H (75-99) mg/dL Hemoglobin A1c (4.0-6.0) % Phosphorus 2.3 L (2.5-4.5) mg/dL Ferritin (22.0-322.0) ng/mL C-Reactive Protein (<1.0) mg/dL 05/05/21 05/05/21 05/05/21 Range/Units 16:53 18:07 18:45 Plt Count (150-450) k/uL Lymphocytes # (1.0-4.8) k/uL D-Dimer (<0.60) mg/L FEU ABG pH (7.35-7.45) ABG pCO2 (35-45) mmHg ABG pO2 (83-108) mmHg ABG HCO3 (21-25) mmol/L ABG Total CO2 (19-24) mmol/L ABG O2 Saturation (94-97) % Potassium (3.5-5.1) mmol/L Chloride (98-107) mmol/L Carbon Dioxide (22-30) mmol/L BUN (9-20) mg/dL Creatinine (0.66-1.25) mg/dL Glucose (74-99) mg/dL POC Glucose (mg/dL) 333 H 279 H 223 H (75-99) mg/dL Hemoglobin A1c (4.0-6.0) % Phosphorus (2.5-4.5) mg/dL Ferritin (22.0-322.0) ng/mL C-Reactive Protein (<1.0) mg/dL 05/05/21 05/05/21 05/05/21 Range/Units 20:34 21:09 21:27 Plt Count (150-450) k/uL Lymphocytes # (1.0-4.8) k/uL D-Dimer (<0.60) mg/L FEU ABG pH (7.35-7.45) ABG pCO2 (35-45) mmHg ABG pO2 73 L (83-108) mmHg ABG HCO3 (21-25) mmol/L ABG Total CO2 27 H (19-24) mmol/L ABG O2 Saturation (94-97) % Potassium 3.4 L (3.5-5.1) mmol/L Chloride 111 H (98-107) mmol/L Carbon Dioxide (22-30) mmol/L BUN 66 H (9-20) mg/dL Creatinine 2.08 H (0.66-1.25) mg/dL Glucose (74-99) mg/dL POC Glucose (mg/dL) 168 H (75-99) mg/dL Hemoglobin A1c (4.0-6.0) % Phosphorus 2.0 L (2.5-4.5) mg/dL Ferritin (22.0-322.0) ng/mL C-Reactive Protein (<1.0) mg/dL 05/05/21 05/05/21 05/06/21 Range/Units 22:02 23:07 00:07 Plt Count (150-450) k/uL Lymphocytes # (1.0-4.8) k/uL D-Dimer (<0.60) mg/L FEU ABG pH (7.35-7.45) ABG pCO2 (35-45) mmHg ABG pO2 (83-108) mmHg ABG HCO3 (21-25) mmol/L ABG Total CO2 (19-24) mmol/L ABG O2 Saturation (94-97) % Potassium (3.5-5.1) mmol/L Chloride (98-107) mmol/L Carbon Dioxide (22-30) mmol/L BUN (9-20) mg/dL Creatinine (0.66-1.25) mg/dL Glucose (74-99) mg/dL POC Glucose (mg/dL) 172 H 181 H 186 H (75-99) mg/dL Hemoglobin A1c (4.0-6.0) % Phosphorus (2.5-4.5) mg/dL Ferritin (22.0-322.0) ng/mL C-Reactive Protein (<1.0) mg/dL 05/06/21 05/06/21 05/06/21 Range/Units 00:54 02:01 03:05 Plt Count (150-450) k/uL Lymphocytes # (1.0-4.8) k/uL D-Dimer (<0.60) mg/L FEU ABG pH (7.35-7.45) ABG pCO2 (35-45) mmHg ABG pO2 (83-108) mmHg ABG HCO3 (21-25) mmol/L ABG Total CO2 (19-24) mmol/L ABG O2 Saturation (94-97) % Potassium (3.5-5.1) mmol/L Chloride (98-107) mmol/L Carbon Dioxide (22-30) mmol/L BUN (9-20) mg/dL Creatinine (0.66-1.25) mg/dL Glucose (74-99) mg/dL POC Glucose (mg/dL) 166 H 208 H 222 H (75-99) mg/dL Hemoglobin A1c (4.0-6.0) % Phosphorus (2.5-4.5) mg/dL Ferritin (22.0-322.0) ng/mL C-Reactive Protein (<1.0) mg/dL 05/06/21 05/06/21 05/06/21 Range/Units 03:55 04:00 04:00 Plt Count 474 H (150-450) k/uL Lymphocytes # 0.6 L (1.0-4.8) k/uL D-Dimer (<0.60) mg/L FEU ABG pH (7.35-7.45) ABG pCO2 (35-45) mmHg ABG pO2 (83-108) mmHg ABG HCO3 (21-25) mmol/L ABG Total CO2 (19-24) mmol/L ABG O2 Saturation (94-97) % Potassium (3.5-5.1) mmol/L Chloride 112 H (98-107) mmol/L Carbon Dioxide (22-30) mmol/L BUN 54 H (9-20) mg/dL Creatinine 1.78 H (0.66-1.25) mg/dL Glucose (74-99) mg/dL POC Glucose (mg/dL) 214 H (75-99) mg/dL Hemoglobin A1c (4.0-6.0) % Phosphorus 2.1 L (2.5-4.5) mg/dL Ferritin (22.0-322.0) ng/mL C-Reactive Protein (<1.0) mg/dL 05/06/21 05/06/21 05/06/21 Range/Units 04:00 04:50 05:29 Plt Count (150-450) k/uL Lymphocytes # (1.0-4.8) k/uL D-Dimer 3.61 H (<0.60) mg/L FEU ABG pH 7.49 H (7.35-7.45) ABG pCO2 32 L (35-45) mmHg ABG pO2 62 L (83-108) mmHg ABG HCO3 (21-25) mmol/L ABG Total CO2 25 H (19-24) mmol/L ABG O2 Saturation 92.2 L (94-97) % Potassium (3.5-5.1) mmol/L Chloride (98-107) mmol/L Carbon Dioxide (22-30) mmol/L BUN (9-20) mg/dL Creatinine (0.66-1.25) mg/dL Glucose (74-99) mg/dL POC Glucose (mg/dL) 252 H (75-99) mg/dL Hemoglobin A1c (4.0-6.0) % Phosphorus (2.5-4.5) mg/dL Ferritin (22.0-322.0) ng/mL C-Reactive Protein (<1.0) mg/dL 05/06/21 05/06/21 05/06/21 Range/Units 06:00 07:00 07:54 Plt Count (150-450) k/uL Lymphocytes # (1.0-4.8) k/uL D-Dimer (<0.60) mg/L FEU ABG pH (7.35-7.45) ABG pCO2 (35-45) mmHg ABG pO2 (83-108) mmHg ABG HCO3 (21-25) mmol/L ABG Total CO2 (19-24) mmol/L ABG O2 Saturation (94-97) % Potassium (3.5-5.1) mmol/L Chloride (98-107) mmol/L Carbon Dioxide (22-30) mmol/L BUN (9-20) mg/dL Creatinine (0.66-1.25) mg/dL Glucose (74-99) mg/dL POC Glucose (mg/dL) 249 H 202 H 177 H (75-99) mg/dL Hemoglobin A1c (4.0-6.0) % Phosphorus (2.5-4.5) mg/dL Ferritin (22.0-322.0) ng/mL C-Reactive Protein (<1.0) mg/dL 05/06/21 Range/Units 09:06 Plt Count (150-450) k/uL Lymphocytes # (1.0-4.8) k/uL D-Dimer (<0.60) mg/L FEU ABG pH (7.35-7.45) ABG pCO2 (35-45) mmHg ABG pO2 (83-108) mmHg ABG HCO3 (21-25) mmol/L ABG Total CO2 (19-24) mmol/L ABG O2 Saturation (94-97) % Potassium (3.5-5.1) mmol/L Chloride (98-107) mmol/L Carbon Dioxide (22-30) mmol/L BUN (9-20) mg/dL Creatinine (0.66-1.25) mg/dL Glucose (74-99) mg/dL POC Glucose (mg/dL) 208 H (75-99) mg/dL Hemoglobin A1c (4.0-6.0) % Phosphorus (2.5-4.5) mg/dL Ferritin (22.0-322.0) ng/mL C-Reactive Protein (<1.0) mg/dL Assessment and Plan Plan: Assessment: #1. Acute COVID-19 related pneumonia. The patient was tested positive on 04/26/2021. Symptoms started approximately 6 days ago and he developed progressive constitutional symptoms, progressive respiratory failure, progressive hypoxic respiratory failure. Patient is on a combination of Decadron 6 mg twice daily, Lovenox 40 mg daily, and multivitamins. Today patient is on BiPAP support with pressures of 14/6 and FiO2 of 100% #2. acute hypoxic respiratory failure BiPAP support today on 1411 6 and FiO2 100% #3. shortness of breath secondary to above #4. diabetes mellitus with steroid-induced hyperglycemia currently on an insulin drip for blood sugar control #5. chronic kidney disease, likely diabetic nephropathy, improving #6. hypertension #7. hyperlipidemia #8. elevated inflammatory markers secondary to COVID-19 related pneumonia. Graft #9. Anxiety, agitation, currently on Precedex infusion with good response Plan: Continue BiPAP support at current settings Patient agreed to try to prone himself in bed with assistance Today's blood gases have been reviewed, and oxygenation and acid base balance are improved Decadron 6 mg twice daily Continue Lovenox 40 mg daily Continue to follow inflammatory markers, and daily d-dimer Continue Precedex infusion for anxiety Continue insulin infusion per steroid infusion protocol Monitor blood sugars The IV fluids to 75 ML per hour of 0.9 normal saline We'll follow to follow labs and chest x-rays on a regular basis Patient is going to be closely monitored in intensive care unit Patient's only was updated I performed a history & physical examination of the patient and discussed their management with my nurse practitioner, Ana Esquivel. I reviewed the nurse practitioner's note and agree with the documented findings and plan of care. Lung sounds are positive for diminished breath sounds with coarse crackles throughout the lung yancey. The findings and the impression was discussed with the patient. I attest to the documentation by the nurse practitioner. Time with Patient: Less than 30
[2021-05-06 10:29] LABS: Glucose,Whole Blood 196 mg/dL (75-99)
[2021-05-06] MEDS: PANTOPRAZOLE 40 MG/10 ML VIAL IVP SCH (11:14)
[2021-05-06 11:21] LABS: Glucose,Whole Blood 189 mg/dL (75-99)
[2021-05-06 12:19] LABS: Glucose,Whole Blood 172 mg/dL (75-99)
[2021-05-06 13:11] LABS: Glucose,Whole Blood 155 mg/dL (75-99)
[2021-05-06 14:19] LABS: Glucose,Whole Blood 145 mg/dL (75-99)
[2021-05-06] MEDS: POTASSIUM CHLORIDE ER 20 MEQ TAB.ER PO SCH ×2 (14:22→15:30)
--- NOTE | 2021-05-06 14:41 | P.PN ---
Subjective Progress Note Date: 05/06/21 Principal diagnosis: shortness of breath Patient is a 65-year-old male with past medical history of diabetes mellitus type 2, hypertension, and dyslipidemia who initially presented to [facility] where he was diagnosed with DKA and COVID-19. He was subsequently transferred here secondary to hypoxia. He initially tested positive for Covid on April 29. On arrival to the ER here sodium 132, potassium 5.2, carbon dioxide 11, anion gap 23, BUN 66, creatinine 2.95, glucose of 467. He was also noted to have bilateral interstitial infiltrates on chest x-ray. He was started on Decadron as well as sliding scale insulin. In the morning of 05/05 he was hypoxic despite airvo and nonrebreather when getting up to go to the bathroom. Laboratory analysis was reviewed which showed severe DKA with a carbon dioxide of 11 and an anion gap of 23. Patient was star brittni on an insulin drip. Pulmonary critical care was contacted and arrangements were made to admit the patient to the ICU. He is also started on Remdesivir and Toci. Overnight on 05/05 his anion gap closed and he was transitioned to non- DKA insulin drip secondary to steroid use. He ultimately required BiPAP therapy. Patient seen and examined at bedside. He reports that he is feeling significa ntly short of breath and very thirsty. He denies any chest discomfort. He has not been vaccinated against COVID-19. He denies any nausea or vomiting. He reports he has never had DKA in the past. He is very hard of hearing. General: Ill appearing, moderate distress], appears at stated age Derm: warm, dry Head: atraumatic, normocephalic, symmetric Eyes: EOMI, no lid lag, anicteric sclera Mouth: no lip lesion, mucus membranes moist Cardiovascular: S1S2 reg, no murmur, positive posterior tibial pulse bilateral, Lungs: Rhonchi bilaterally, 3 word conversational dyspnea, sternal retractions, on airvo Abdominal: soft, nontender to palpation, no guarding, no appreciable organomegaly Ext: no gross muscle atrophy, no edema, no contractures Neuro: CN II-XI grossly intact, no focal neuro deficits Psych: Alert, oriented, appropriate affect COVID-19 pneumonia with acute hypoxic respiratory failure Toxic emtabolic encephalopathy - follow CBC,CMP, CRP, LDH, and D-dimer -Rem X 1 05/05 and Toci X 1 05/05 -Decadron IV -Transferred ICU -Pulmonary recs - Zinc, Vit C, and Vit D - Dexmedetomidine Diabetes Mellitus - insulin drip -follow BS -IV fluid resuscitation changed to normal saline at 200 -A1c 15.3, will need insulin on discharge -Hold oral diabetic medications Acute kidney -Strict I's and O's -Avoid nephrotoxic agents -Fluid resuscitation -follow BMP Hypertension, controlled -prn hydrazine - metoprolol Dyslipidemia -Fenofibrate on hold -statin Diabetic ketoacidosis, resolved Hyperkalemia, resolved DVT prophylaxis: lovenox Discussed with: nursing, patient Anticipated discharge: undetermined Anticipated discharge place: undetermined A total of 35 minutes was spent on the care of this complex patient more than 50% of the time was spent in counseling and care coordination. Active Medications Acetaminophen (Acetaminophen Tab 325 Mg Tab) 650 mg PO Q4HR PRN PRN Reason: Fever>101 Albuterol Sulfate (Albuterol Hfa Inhaler) 2 puff INHALATION RT-QID [facility] Last Admin: 05/06/21 13:06 Dose: 2 puff Documented by: Ascorbic Acid (Ascorbic Acid 500 Mg Tab) 1,000 mg PO DAILY [facility] Last Admin: 05/06/21 08:13 Dose: 1,000 mg Documented by: Atorvastatin Calcium (Atorvastatin 20 Mg Tab) 20 mg PO HS [facility] Last Admin: 05/05/21 21:39 Dose: Not Given Documented by: Cholecalciferol (Cholecalciferol 25 Mcg (1000 Iu) Tablet) 125 mcg PO DAILY [facility] Last Admin: 05/06/21 08:13 Dose: 125 mcg Documented by: Dexamethasone Sodium Phosphate (Dexamethasone Sod Phosphate 10 Mg/Ml 1 Ml Vial) 6 mg IV BID [facility] Last Admin: 05/06/21 08:13 Dose: 6 mg Documented by: Enoxaparin Sodium (Enoxaparin 40 Mg/0.4 Ml Syringe) 40 mg SQ DAILY [facility] Last Admin: 05/06/21 08:13 Dose: 40 mg Documented by: Fenofibrate (Fenofibrate 160 Mg Tab) 160 mg PO DAILY [facility] Last Admin: 05/06/21 08:16 Dose: 160 mg Documented by: Hydralazine HCl (Hydralazine Hcl 20 Mg/Ml 1 Ml Vial) 10 mg IVP Q4HR PRN PRN Reason: Blood Pressure - High Last Admin: 05/06/21 12:11 Dose: 10 mg Documented by: Sodium Chloride (Saline 0.9%) 1,000 mls @ 150 mls/hr IV .Q6H40M [facility] Last Admin: 05/06/21 09:55 Dose: Not Given Documented by: Dexmedetomidine HCl 400 mcg/ (IV Solution) 100 mls @ 0 mls/hr IV .Q0M [facility]; Protocol Stop: 05/06/21 18:11 Last Titration: 05/06/21 09:30 Dose: 0.4 mcg/kg/hr, 9.74 mls/hr Documented by: Insulin Human Regular 100 unit (/ Sodium Chloride) 101 mls @ 0 mls/hr IV .Q0M [facility]; Protocol Last Titration: 05/06/21 13:10 Dose: 10 units/hr, 10.1 mls/hr Documented by: Sodium Chloride (Saline 0.9%) 1,000 mls @ 75 mls/hr IV .[id number] [facility] Last Admin: 05/06/21 11:14 Dose: 75 mls/hr Documented by: Melatonin (Melatonin 5 Mg Tablet) 5 mg PO HS [facility] Last Admin: 05/05/21 21:39 Dose: Not Given Documented by: Metoprolol Tartrate (Metoprolol Tartrate 50 Mg Tab) 100 mg PO BID [facility] Last Admin: 05/06/21 08:14 Dose: Not Given Documented by: Miscellaneous Information (Magnesium Replacement Protocol 1 Each Misc) 1 each MISCELLANE DAILY PRN; Protocol PRN Reason: Per Protocol Miscellaneous Information (Potassium Replacement Protocol 1 Each Misc) 1 each MISCELLANE DAILY PRN; Protocol PRN Reason: Per Protocol Naloxone HCl (Naloxone 0.4 Mg/Ml 1 Ml Vial) 0.2 mg IV Q2M PRN PRN Reason: Opioid Reversal Pantoprazole Sodium (Pantoprazole 40 Mg/10 Ml Vial) 40 mg IVP DAILY [facility] Last Admin: 05/06/21 11:14 Dose: 40 mg Documented by: Potassium Chloride (Potassium Chloride Er 20 Meq Tab.Er) 20 meq PO Q1HR [facility]; Protocol Stop: 05/06/21 15:01 Last Admin: 05/06/21 14:22 Dose: 20 meq Documented by: Zinc Sulfate (Zinc Sulfate 220 Mg Cap) 220 mg PO DAILY [facility] Last Admin: 05/06/21 08:12 Dose: 220 mg Documented by: Objective - Vital Signs Vital signs: Vital Signs Temp 96.5 F L 05/06/21 13:00 Pulse 54 L 05/06/21 14:00 Resp 24 05/06/21 14:00 BP 148/75 05/06/21 14:00 Pulse Ox 93 L 05/06/21 14:00 Intake & Output 05/05/21 05/06/21 05/06/21 18:59 06:59 18:59 Intake Total 3369.075 5591.847 983.733 Output Total 1150 1808 1050 Balance 627.414 102.847 -66.267 Weight 99.79 kg 97.4 kg Intake: IV 1200 1674 606 0.9 24 6 Sodium Chloride 0.9% 1, 1200 1650 600 000 ml @ 150 mls/hr IV . Q6H40M [facility] Rx#:[id number] Intake, IV Titration 577.414 236.847 377.733 Amount D5-0.45% NaCl with KCl 150 20Meq/l 1,000 ml @ 150 mls/hr IV .Q6H40M [facility] Rx# :[id number] Dexmedetomidine/0.9% NaCl 4.823 103.325 55.132 (Pmx) 400 mcg In Empty Bag 1 bag @ Titrate IV . Q0M [facility] Rx#:[id number] Insulin Regular 100 unit 112.591 82.567 In Sodium Chloride 0.9% 100 ml @ 0.1 UNITS/KG/HR 10.079 mls/hr IV .Q10H2M [facility] Rx#:[id number] Insulin Regular 100 unit 50.955 97.601 In Sodium Chloride 0.9% 100 ml @ Per Protocol IV .Q0M [facility] Rx#:[id number] Remdesivir 200 mg In 250 Sodium Chloride 0.9% 250 ml @ 250 mls/hr IVPB ONCE ONE Rx#:[id number] Sodium Chloride 0.9% 1, 225 000 ml @ 75 mls/hr IV . [id number] [facility] Rx#:[id number] Tocilizumab 800 mg In 60 Sodium Chloride 0.9% 60 ml @ 100 mls/hr IV ONCE ONE Rx#:[id number] Output: Urine 1150 1808 1050 Other: Voiding Method Indwelling Catheter Indwelling Catheter Indwelling Catheter ABP, PAP, CO, CI - Last Documented Arterial Blood Pressure 171/71 - Labs CBC & Chem 7: 05/06/21 04:00 05/06/21 13:32 Labs: Abnormal Lab Results - Last 24 Hours (Table) 05/05/21 05/05/21 05/05/21 Range/Units 06:16 08:03 15:02 Plt Count (150-450) k/uL Lymphocytes # (1.0-4.8) k/uL D-Dimer (<0.60) mg/L FEU ABG pH (7.35-7.45) ABG pCO2 (35-45) mmHg ABG pO2 (83-108) mmHg ABG HCO3 (21-25) mmol/L ABG Total CO2 (19-24) mmol/L ABG O2 Saturation (94-97) % Potassium (3.5-5.1) mmol/L Chloride (98-107) mmol/L BUN (9-20) mg/dL Creatinine (0.66-1.25) mg/dL POC Glucose (mg/dL) 497 H (75-99) mg/dL Hemoglobin A1c 15.3 H (4.0-6.0) % Phosphorus (2.5-4.5) mg/dL Ferritin 746.0 H (22.0-322.0) ng/mL 05/05/21 05/05/21 05/05/21 Range/Units 15:26 16:00 16:22 Plt Count (150-450) k/uL Lymphocytes # (1.0-4.8) k/uL D-Dimer (<0.60) mg/L FEU ABG pH (7.35-7.45) ABG pCO2 25 L (35-45) mmHg ABG pO2 48 L* (83-108) mmHg ABG HCO3 16 L (21-25) mmol/L ABG Total CO2 17 L (19-24) mmol/L ABG O2 Saturation 83.0 L (94-97) % Potassium (3.5-5.1) mmol/L Chloride (98-107) mmol/L BUN 71 H (9-20) mg/dL Creatinine 2.38 H (0.66-1.25) mg/dL POC Glucose (mg/dL) 437 H (75-99) mg/dL Hemoglobin A1c (4.0-6.0) % Phosphorus 2.3 L (2.5-4.5) mg/dL Ferritin (22.0-322.0) ng/mL 05/05/21 05/05/21 05/05/21 Range/Units 16:53 18:07 18:45 Plt Count (150-450) k/uL Lymphocytes # (1.0-4.8) k/uL D-Dimer (<0.60) mg/L FEU ABG pH (7.35-7.45) ABG pCO2 (35-45) mmHg ABG pO2 (83-108) mmHg ABG HCO3 (21-25) mmol/L ABG Total CO2 (19-24) mmol/L ABG O2 Saturation (94-97) % Potassium (3.5-5.1) mmol/L Chloride (98-107) mmol/L BUN (9-20) mg/dL Creatinine (0.66-1.25) mg/dL POC Glucose (mg/dL) 333 H 279 H 223 H (75-99) mg/dL Hemoglobin A1c (4.0-6.0) % Phosphorus (2.5-4.5) mg/dL Ferritin (22.0-322.0) ng/mL 05/05/21 05/05/21 05/05/21 Range/Units 20:34 21:09 21:27 Plt Count (150-450) k/uL Lymphocytes # (1.0-4.8) k/uL D-Dimer (<0.60) mg/L FEU ABG pH (7.35-7.45) ABG pCO2 (35-45) mmHg ABG pO2 73 L (83-108) mmHg ABG HCO3 (21-25) mmol/L ABG Total CO2 27 H (19-24) mmol/L ABG O2 Saturation (94-97) % Potassium 3.4 L (3.5-5.1) mmol/L Chloride 111 H (98-107) mmol/L BUN 66 H (9-20) mg/dL Creatinine 2.08 H (0.66-1.25) mg/dL POC Glucose (mg/dL) 168 H (75-99) mg/dL Hemoglobin A1c (4.0-6.0) % Phosphorus 2.0 L (2.5-4.5) mg/dL Ferritin (22.0-322.0) ng/mL 05/05/21 05/05/21 05/06/21 Range/Units 22:02 23:07 00:07 Plt Count (150-450) k/uL Lymphocytes # (1.0-4.8) k/uL D-Dimer (<0.60) mg/L FEU ABG pH (7.35-7.45) ABG pCO2 (35-45) mmHg ABG pO2 (83-108) mmHg ABG HCO3 (21-25) mmol/L ABG Total CO2 (19-24) mmol/L ABG O2 Saturation (94-97) % Potassium (3.5-5.1) mmol/L Chloride (98-107) mmol/L BUN (9-20) mg/dL Creatinine (0.66-1.25) mg/dL POC Glucose (mg/dL) 172 H 181 H 186 H (75-99) mg/dL Hemoglobin A1c (4.0-6.0) % Phosphorus (2.5-4.5) mg/dL Ferritin (22.0-322.0) ng/mL 05/06/21 05/06/21 05/06/21 Range/Units 00:54 02:01 03:05 Plt Count (150-450) k/uL Lymphocytes # (1.0-4.8) k/uL D-Dimer (<0.60) mg/L FEU ABG pH (7.35-7.45) ABG pCO2 (35-45) mmHg ABG pO2 (83-108) mmHg ABG HCO3 (21-25) mmol/L ABG Total CO2 (19-24) mmol/L ABG O2 Saturation (94-97) % Potassium (3.5-5.1) mmol/L Chloride (98-107) mmol/L BUN (9-20) mg/dL Creatinine (0.66-1.25) mg/dL POC Glucose (mg/dL) 166 H 208 H 222 H (75-99) mg/dL Hemoglobin A1c (4.0-6.0) % Phosphorus (2.5-4.5) mg/dL Ferritin (22.0-322.0) ng/mL 05/06/21 05/06/21 05/06/21 Range/Units 03:55 04:00 04:00 Plt Count 474 H (150-450) k/uL Lymphocytes # 0.6 L (1.0-4.8) k/uL D-Dimer (<0.60) mg/L FEU ABG pH (7.35-7.45) ABG pCO2 (35-45) mmHg ABG pO2 (83-108) mmHg ABG HCO3 (21-25) mmol/L ABG Total CO2 (19-24) mmol/L ABG O2 Saturation (94-97) % Potassium (3.5-5.1) mmol/L Chloride 112 H (98-107) mmol/L BUN 54 H (9-20) mg/dL Creatinine 1.78 H (0.66-1.25) mg/dL POC Glucose (mg/dL) 214 H (75-99) mg/dL Hemoglobin A1c (4.0-6.0) % Phosphorus 2.1 L (2.5-4.5) mg/dL Ferritin (22.0-322.0) ng/mL 05/06/21 05/06/21 05/06/21 Range/Units 04:00 04:50 05:29 Plt Count (150-450) k/uL Lymphocytes # (1.0-4.8) k/uL D-Dimer 3.61 H (<0.60) mg/L FEU ABG pH 7.49 H (7.35-7.45) ABG pCO2 32 L (35-45) mmHg ABG pO2 62 L (83-108) mmHg ABG HCO3 (21-25) mmol/L ABG Total CO2 25 H (19-24) mmol/L ABG O2 Saturation 92.2 L (94-97) % Potassium (3.5-5.1) mmol/L Chloride (98-107) mmol/L BUN (9-20) mg/dL Creatinine (0.66-1.25) mg/dL POC Glucose (mg/dL) 252 H (75-99) mg/dL Hemoglobin A1c (4.0-6.0) % Phosphorus (2.5-4.5) mg/dL Ferritin (22.0-322.0) ng/mL 05/06/21 05/06/21 05/06/21 Range/Units 06:00 07:00 07:54 Plt Count (150-450) k/uL Lymphocytes # (1.0-4.8) k/uL D-Dimer (<0.60) mg/L FEU ABG pH (7.35-7.45) ABG pCO2 (35-45) mmHg ABG pO2 (83-108) mmHg ABG HCO3 (21-25) mmol/L ABG Total CO2 (19-24) mmol/L ABG O2 Saturation (94-97) % Potassium (3.5-5.1) mmol/L Chloride (98-107) mmol/L BUN (9-20) mg/dL Creatinine (0.66-1.25) mg/dL POC Glucose (mg/dL) 249 H 202 H 177 H (75-99) mg/dL Hemoglobin A1c (4.0-6.0) % Phosphorus (2.5-4.5) mg/dL Ferritin (22.0-322.0) ng/mL 05/06/21 05/06/21 05/06/21 Range/Units 09:06 10:28 11:19 Plt Count (150-450) k/uL Lymphocytes # (1.0-4.8) k/uL D-Dimer (<0.60) mg/L FEU ABG pH (7.35-7.45) ABG pCO2 (35-45) mmHg ABG pO2 (83-108) mmHg ABG HCO3 (21-25) mmol/L ABG Total CO2 (19-24) mmol/L ABG O2 Saturation (94-97) % Potassium (3.5-5.1) mmol/L Chloride (98-107) mmol/L BUN (9-20) mg/dL Creatinine (0.66-1.25) mg/dL POC Glucose (mg/dL) 208 H 196 H 189 H (75-99) mg/dL Hemoglobin A1c (4.0-6.0) % Phosphorus (2.5-4.5) mg/dL Ferritin (22.0-322.0) ng/mL 05/06/21 05/06/21 05/06/21 Range/Units 12:17 13:09 14:18 Plt Count (150-450) k/uL Lymphocytes # (1.0-4.8) k/uL D-Dimer (<0.60) mg/L FEU ABG pH (7.35-7.45) ABG pCO2 (35-45) mmHg ABG pO2 (83-108) mmHg ABG HCO3 (21-25) mmol/L ABG Total CO2 (19-24) mmol/L ABG O2 Saturation (94-97) % Potassium (3.5-5.1) mmol/L Chloride (98-107) mmol/L BUN (9-20) mg/dL Creatinine (0.66-1.25) mg/dL POC Glucose (mg/dL) 172 H 155 H 145 H (75-99) mg/dL Hemoglobin A1c (4.0-6.0) % Phosphorus (2.5-4.5) mg/dL Ferritin (22.0-322.0) ng/mL
[2021-05-06 15:20] LABS: Glucose,Whole Blood 146 mg/dL (75-99)
[2021-05-06] MEDS ORDERED: ACETAMINOPHEN ORAL SUSP 160 MG/5 ML CUP PO PRN (15:28)
[2021-05-06] MEDS: POTASSIUM CHLORIDE 10 MEQ in WATER FOR INJECTION 1 100ML.BAG IVPB SCH ×2 (16:21→17:40)
[2021-05-06 16:27] LABS: Glucose,Whole Blood 122 mg/dL (75-99)
[2021-05-06 17:21] LABS: Glucose,Whole Blood 179 mg/dL (75-99)
[2021-05-06 18:24] LABS: Glucose,Whole Blood 234 mg/dL (75-99)
[2021-05-06 19:15] LABS: Glucose,Whole Blood 167 mg/dL (75-99)
[2021-05-06 20:16] LABS: Glucose,Whole Blood 184 mg/dL (75-99)
[2021-05-06] MEDS: ATORVASTATIN 20 MG TAB PO SCH (21:15)
[2021-05-06] MEDS: MELATONIN 5 MG TABLET PO SCH (21:15)
[2021-05-06 21:22] LABS: Glucose,Whole Blood 113 mg/dL (75-99)
[2021-05-06 22:10] LABS: Glucose,Whole Blood 187 mg/dL (75-99)
[2021-05-06 22:58] LABS: Glucose,Whole Blood 159 mg/dL (75-99)
[2021-05-07] MEDS: SODIUM CHLORIDE 0.9% 1,000 ML IV SCH ×2 (00:09→14:04)
[2021-05-07 00:15] LABS: Glucose,Whole Blood 176 mg/dL (75-99)
[2021-05-07 01:06] LABS: Glucose,Whole Blood 139 mg/dL (75-99)
[2021-05-07 02:19] LABS: Glucose,Whole Blood 152 mg/dL (75-99)
[2021-05-07 02:58] LABS: Glucose,Whole Blood 221 mg/dL (75-99)
[2021-05-07] MEDS: hydrALAZINE HCL 20 MG/ML 1 ML VIAL IVP PRN ×2 (03:03→09:52)
[2021-05-07] MEDS: DEXMEDETOMIDINE/0.9% NACL(PMX) 400 MCG in EMPTY BAG 1 BAG IV SCH ×3 (03:07→17:27)
[2021-05-07] MEDS: INSULIN REGULAR 100 UNIT in SODIUM CHLORIDE 0.9% 100 ML IV SCH ×2 (03:30→07:04)
[2021-05-07 04:12] LABS: Glucose,Whole Blood 180 mg/dL (75-99)
[2021-05-07 04:14] LABS: ABG Base Excess -2.5 mmol/L; ABG HCO3 20 mmol/L (21-25); ABG Oxygen Saturation 90.7 % (94-97); ABG PCO2 25 mmHg (35-45); ABG PH 7.52 (7.35-7.45); ABG TCO2 21 mmol/L (19-24); Allen Test Performed? Yes
[2021-05-07 04:18] LABS: ABG PO2 56 mmHg (83-108)
[2021-05-07 04:33] LABS: Basophils % (A) 0 %; Eosinophils % (A) 0 %; HCT 42.5 % (39.0-53.0); HGB 13.7 gm/dL (13.0-17.5); Lymphocytes # (A) 0.4 k/uL (1.0-4.8); Lymphocytes % (A) 6 %; MCH 29.4 pg (25.0-35.0); MCHC 32.2 g/dL (31.0-37.0); MCV 91.2 fL (80.0-100.0); Mean Platelet Volume 8.2; Monocytes # (A) 0.5 k/uL (0-1.0); Monocytes % (A) 6 %; Neutrophils % (A) 88 %; Platelet Count 382 k/uL (150-450); RBC 4.65 m/uL (4.30-5.90); RDW 14.6 % (11.5-15.5)
[2021-05-07 04:45] LABS: Albumin 2.4 g/dL (3.5-5.0); C Reactive Protein 5.2 mg/dL (<1.0); Calcium 8.1 mg/dL (8.4-10.2); Total Bilirubin 0.5 mg/dL (0.2-1.3); Total Protein 5.2 g/dL (6.3-8.2)
[2021-05-07 05:57] LABS: Glucose,Whole Blood 182 mg/dL (75-99)
[2021-05-07 07:03] LABS: Glucose,Whole Blood 172 mg/dL (75-99)
--- NOTE | 2021-05-07 07:16 | XR ---
EXAMINATION TYPE: XR chest 1V portable DATE OF EXAM: 05/07/2021 COMPARISON: 05/06/2021 HISTORY: Shortness of breath TECHNIQUE: Single frontal view of the chest is obtained. FINDINGS: There is diffuse partially consolidative airspace opacity in the lower lung zones unchange d since the prior study. There is no pneumothorax or large pleural effusion. Heart size is normal. The osseous structures are intact. IMPRESSION: No change in the acute cardiopulmonary disease with partial diffuse airspace consolidati on. Findings consistent with pneumonia versus pulmonary edema.
[2021-05-07] MEDS: ALBUTEROL HFA INHALER INHALATION SCH ×4 (07:37→20:03)
[2021-05-07 08:16] LABS: Glucose,Whole Blood 117 mg/dL (75-99)
[2021-05-07] MEDS: FENOFIBRATE 160 MG TAB PO SCH ×2 (08:25→09:05)
[2021-05-07] MEDS: CHOLECALCIFEROL 25 MCG (1000 IU) TABLET PO SCH ×2 (08:25→09:05)
[2021-05-07] MEDS: ZINC SULFATE 220 MG CAP PO SCH ×2 (08:25→09:05)
[2021-05-07] MEDS: ASCORBIC ACID 500 MG TAB PO SCH ×2 (08:25→09:05)
[2021-05-07] MEDS: ENOXAPARIN 40 MG/0.4 ML SYRINGE SQ SCH (08:26)
[2021-05-07] MEDS: DEXAMETHASONE SOD PHOSPHATE 10 MG/ML 1 ML VIAL IV SCH ×2 (08:26→21:02)
[2021-05-07] MEDS: PANTOPRAZOLE 40 MG/10 ML VIAL IVP SCH (08:26)
[2021-05-07 09:03] LABS: Glucose,Whole Blood 110 mg/dL (75-99)
[2021-05-07] MEDS: METOPROLOL TARTRATE 50 MG TAB PO SCH ×2 (09:04→22:57)
[2021-05-07 10:00] LABS: Glucose,Whole Blood 159 mg/dL (75-99)
--- NOTE | 2021-05-07 10:16 | P.PN ---
Subjective Progress Note Date: 05/07/21 65-year-old male patient transferred from [facility] because of a COVID-19 related pneumonia. The patient became symptomatic approximately 6 days ago. He has a son at home was also infected with COVID-19. He developed tiredness, fatigue, fever, increased dyspnea cough and his condition progressively got worse and for that reason he ended up coming to [facility] and following that he got transferred to us for further evaluation and treatment. Note that he was tested positive on 04/26/2021. He has been receiving Decadron for the past 5-6 days. He did not see any significant improvement. His condition was progressively getting worse. I saw this patient in intensive care unit. After being on the regular oxygen, he was placed on high flow oxygen 6 L with an FiO2 of 90% to bring his saturation above 90%. Chest x-ray showing diffuse bilateral pulmonary infiltrates mainly involving the lower lobes. White cell count was at 4.8. His hemoglobin was at 13.9. Glucose was 673. LDH level was 1284, CRP level was 17.4, his d-dimer was at 1.23. He has chronic kidney disease along with diabe maico and hypertension. He has a BUN of 72 coronary creatinine of 2.97. His blood sugar was above 600 and he was started on a insulin drip for blood sugar control which is currently running at 10 units an hour. He is also on normal saline at rate of 200 mL an hour. He is lethargic. Is responsive his communicating. No focal neurological deficits. No other complaints otherwise for now. He is on Decadron 6 mg daily. He is on also on Lovenox 40 mg subcu daily. On 05/06/2021 patient seen in follow-up. He is on BiPAP at 14 and 6 and FiO2 of 100%, with a pulse ox of 94%, he is currently on Precedex at 0.4 mics per kilo per minute. Patient was started on Precedex infusion for agitation, and restlessness, trying to remove his BiPAP mask and get up unassisted. He still remains on insulin infusion at 13 units per hour, he continues on steroid scale insulin infusion protocol. His maintenance IV fluids are D5 half-normal saline of potassium chloride at a rate of 150 ML per hour, his oral intake has been very diminished related to poor oxygenation and been BiPAP dependent. Yesterday he was able to get some lunch, but no dinner because of worsening oxygenation. Today's blood gas was reviewed showing pO2 of 61, pCO2 of 31, and pH of 7.49, and this was done on BiPAP support 14/6 and 100%. Today's labs have been reviewed, white blood cell count is 8.0, hemoglobin is 13.4, platelet count is 474, d-dimer has trended up to 3.6, sodium is 142, potassium 3.6, chloride is 112, CO2 is 22, BUN is 54, and creatinine is 1.78, close this morning is 208, LDH was yesterday at 1284, CRP is 17.4. Patient remains on Decadron at 6 mg IV push twice daily, and his Lovenox dose is 40 mg daily. Today's chest x-ray shows bilateral infiltrates and pleural effusion, diffuse interstitial edema, relatively stable in appearance compared to yesterday. 05/07/2021, the patient is still hanging in there and his still BiPAP dependent. A brief trial of taking the patient off the BiPAP failed as within 5 minutes, the patient desaturated while being in the 100% nonrebreather facemask and he had to be placed on BiPAP again which is currently running at 14/6 cm of water with an FiO2 of 80 %. His generated tidal volume is in the order of 700 mL and his respiratory rate is in the mid 20s. He seems to be anxious and he is complaining of generalized body aches. Otherwise is able to tolerate the BiPAP well and one comfortable, he does quite well in his current pulse ox is 97%. He remains on Precedex which is currently running at 0.7 mcg/kg per minute. The dose being titrated based on his agitation level and restlessness. He is currently very calm and comfortable. I noted the blood gases from this morning. The numbers are essentially unchanged with a pH of 7.52 and a pCO2 of 25. As far as the pO2, it is a 56, nevertheless on the monitor, is pulse oxing 97%. His chest x-ray is showing diffuse but the pulmonary infiltrates, remains unchanged. He remains on Decadron 6 mg IV every 12 hours. Blood sugars are elevated and the blood sugar control is improved and is currently in the 150-180 range. He is on insulin drip running at 8 units an hour. His oral intake is minimal at this point in time. In terms of ongoing COVID-19 pneumonia treatment, he remains on Decadron, he received Tocilizumab. Resume at and the patient's inflammatory markers today shows a LDH level of 1630 and his d-dimer is up to 23.. He is on IV fluids in the form of normal saline at rate of 75 mL an hour. His urine output is adequate. In terms of his renal function, the patient's creatinine is down to 1.52 with a BUN of 41. No other significant events otherwise for now. Unable to prone the patient because of increased anxiety and BiPAP dependent. Objective - Vital Signs Vital signs: Vital Signs Temp 97.0 F L 05/07/21 08:00 Pulse 53 L 05/07/21 09:00 Resp 24 05/07/21 09:00 BP 148/82 05/07/21 09:00 Pulse Ox 95 05/07/21 09:00 Intake & Output 05/06/21 05/07/21 05/07/21 18:59 06:59 18:59 Intake Total 5928.030 6384.065 381.358 Output Total 1625 1385 200 Balance -137.324 695.065 181.358 Weight 97.4 kg 95.5 kg Intake: IV 606 849 225 0.9 6 24 Sodium Chloride 0.9% 1, 600 825 75 000 ml @ 150 mls/hr IV . Q6H40M [facility] Rx#:[id number] Sodium Chloride 0.9% 1, 150 000 ml @ 75 mls/hr IV . [id number] [facility] Rx#:[id number] Intake, IV Titration 881.676 211.065 156.358 Amount Dexmedetomidine/0.9% NaCl 142.160 44.155 (Pmx) 400 mcg In Empty Bag 1 bag @ Titrate IV . Q0M [facility] Rx#:[id number] Dexmedetomidine/0.9% NaCl 100 (Pmx) 400 mcg In Empty Bag 1 bag @ Titrate IV . Q0M [facility] Rx#:[id number] Insulin Regular 100 unit 139.516 91.910 56.358 In Sodium Chloride 0.9% 100 ml @ Per Protocol IV .Q0M [facility] Rx#:[id number] Sodium Chloride 0.9% 1, 600 75 000 ml @ 75 mls/hr IV . [id number] [facility] Rx#:[id number] Oral 1020 Output: Urine 1625 1385 200 Other: Voiding Method Indwelling Catheter Indwelling Catheter ABP, PAP, CO, CI - Last Documented Arterial Blood Pressure 110/74 - Exam GENERAL EXAM: R [place], but arousable to voice, 65-year-old white male, on BiPAP support with pressures of 14/6 and FiO2 of 80%, and a pulse ox is 94-96% comfortable in no apparent distress. HEAD: Normocephalic/atraumatic. EYES: Normal reaction of pupils, equal size. Conjunctiva pink, sclera white. NOSE: Clear with pink turbinates. THROAT: No erythema or exudates. NECK: No masses, no JVD, no thyroid enlargement, no adenopathy. CHEST: No chest wall deformity. Symmetrical expansion. LUNGS: Equal air entry with coarse bibasilar crackles CVS: Regular rate and rhythm, normal S1 and S2, no gallops, no murmurs, no rubs ABDOMEN: Soft, nontender. No hepatosplenomegaly, normal bowel sounds, no guarding or rigidity. EXTREMITIES: No clubbing, no edema, no cyanosis, 2+ pulses and upper and lower extremities. MUSCULOSKELETAL: Muscle strength and tone normal. SPINE: No scoliosis or deformity SKIN: No rashes CENTRAL NERVOUS SYSTEM: Alert and oriented -3. No focal deficits, tone is nor mal in all 4 extremities. PSYCHIATRIC: Alert and oriented -3. Appropriate affect. Intact judgment and insight. - Labs CBC & Chem 7: 05/07/21 04:00 05/07/21 04:00 Labs: Abnormal Lab Results - Last 24 Hours (Table) 05/06/21 05/06/21 05/06/21 Range/Units 10:28 11:19 12:17 Lymphocytes # (1.0-4.8) k/uL D-Dimer (<0.60) mg/L FEU ABG pH (7.35-7.45) ABG pCO2 (35-45) mmHg ABG pO2 (83-108) mmHg ABG HCO3 (21-25) mmol/L ABG O2 Saturation (94-97) % Chloride (98-107) mmol/L BUN (9-20) mg/dL Creatinine (0.66-1.25) mg/dL Glucose (74-99) mg/dL POC Glucose (mg/dL) 196 H 189 H 172 H (75-99) mg/dL Calcium (8.4-10.2) mg/dL Lactate Dehydrogenase (313-618) U/L C-Reactive Protein (<1.0) mg/dL Total Protein (6.3-8.2) g/dL Albumin (3.5-5.0) g/dL 05/06/21 05/06/21 05/06/21 Range/Units 13:09 14:18 15:18 Lymphocytes # (1.0-4.8) k/uL D-Dimer (<0.60) mg/L FEU ABG pH (7.35-7.45) ABG pCO2 (35-45) mmHg ABG pO2 (83-108) mmHg ABG HCO3 (21-25) mmol/L ABG O2 Saturation (94-97) % Chloride (98-107) mmol/L BUN (9-20) mg/dL Creatinine (0.66-1.25) mg/dL Glucose (74-99) mg/dL POC Glucose (mg/dL) 155 H 145 H 146 H (75-99) mg/dL Calcium (8.4-10.2) mg/dL Lactate Dehydrogenase (313-618) U/L C-Reactive Protein (<1.0) mg/dL Total Protein (6.3-8.2) g/dL Albumin (3.5-5.0) g/dL 05/06/21 05/06/21 05/06/21 Range/Units 16:25 17:19 18:23 Lymphocytes # (1.0-4.8) k/uL D-Dimer (<0.60) mg/L FEU ABG pH (7.35-7.45) ABG pCO2 (35-45) mmHg ABG pO2 (83-108) mmHg ABG HCO3 (21-25) mmol/L ABG O2 Saturation (94-97) % Chloride (98-107) mmol/L BUN (9-20) mg/dL Creatinine (0.66-1.25) mg/dL Glucose (74-99) mg/dL POC Glucose (mg/dL) 122 H 179 H 234 H (75-99) mg/dL Calcium (8.4-10.2) mg/dL Lactate Dehydrogenase (313-618) U/L C-Reactive Protein (<1.0) mg/dL Total Protein (6.3-8.2) g/dL Albumin (3.5-5.0) g/dL 05/06/21 05/06/21 05/06/21 Range/Units 19:12 20:12 21:21 Lymphocytes # (1.0-4.8) k/uL D-Dimer (<0.60) mg/L FEU ABG pH (7.35-7.45) ABG pCO2 (35-45) mmHg ABG pO2 (83-108) mmHg ABG HCO3 (21-25) mmol/L ABG O2 Saturation (94-97) % Chloride (98-107) mmol/L BUN (9-20) mg/dL Creatinine (0.66-1.25) mg/dL Glucose (74-99) mg/dL POC Glucose (mg/dL) 167 H 184 H 113 H (75-99) mg/dL Calcium (8.4-10.2) mg/dL Lactate Dehydrogenase (313-618) U/L C-Reactive Protein (<1.0) mg/dL Total Protein (6.3-8.2) g/dL Albumin (3.5-5.0) g/dL 05/06/21 05/06/21 05/07/21 Range/Units 22:08 22:56 00:13 Lymphocytes # (1.0-4.8) k/uL D-Dimer (<0.60) mg/L FEU ABG pH (7.35-7.45) ABG pCO2 (35-45) mmHg ABG pO2 (83-108) mmHg ABG HCO3 (21-25) mmol/L ABG O2 Saturation (94-97) % Chloride (98-107) mmol/L BUN (9-20) mg/dL Creatinine (0.66-1.25) mg/dL Glucose (74-99) mg/dL POC Glucose (mg/dL) 187 H 159 H 176 H (75-99) mg/dL Calcium (8.4-10.2) mg/dL Lactate Dehydrogenase (313-618) U/L C-Reactive Protein (<1.0) mg/dL Total Protein (6.3-8.2) g/dL Albumin (3.5-5.0) g/dL 05/07/21 05/07/21 05/07/21 Range/Units 01:01 02:17 02:55 Lymphocytes # (1.0-4.8) k/uL D-Dimer (<0.60) mg/L FEU ABG pH (7.35-7.45) ABG pCO2 (35-45) mmHg ABG pO2 (83-108) mmHg ABG HCO3 (21-25) mmol/L ABG O2 Saturation (94-97) % Chloride (98-107) mmol/L BUN (9-20) mg/dL Creatinine (0.66-1.25) mg/dL Glucose (74-99) mg/dL POC Glucose (mg/dL) 139 H 152 H 221 H (75-99) mg/dL Calcium (8.4-10.2) mg/dL Lactate Dehydrogenase (313-618) U/L C-Reactive Protein (<1.0) mg/dL Total Protein (6.3-8.2) g/dL Albumin (3.5-5.0) g/dL 05/07/21 05/07/21 05/07/21 Range/Units 04:00 04:00 04:00 Lymphocytes # 0.4 L (1.0-4.8) k/uL D-Dimer 23.24 H (<0.60) mg/L FEU ABG pH (7.35-7.45) ABG pCO2 (35-45) mmHg ABG pO2 (83-108) mmHg ABG HCO3 (21-25) mmol/L ABG O2 Saturation (94-97) % Chloride 112 H (98-107) mmol/L BUN 41 H (9-20) mg/dL Creatinine 1.52 H (0.66-1.25) mg/dL Glucose 189 H (74-99) mg/dL POC Glucose (mg/dL) (75-99) mg/dL Calcium 8.1 L (8.4-10.2) mg/dL Lactate Dehydrogenase 1630 H (313-618) U/L C-Reactive Protein 5.2 H (<1.0) mg/dL Total Protein 5.2 L (6.3-8.2) g/dL Albumin 2.4 L (3.5-5.0) g/dL 05/07/21 05/07/21 05/07/21 Range/Units 04:09 04:10 05:54 Lymphocytes # (1.0-4.8) k/uL D-Dimer (<0.60) mg/L FEU ABG pH 7.52 H (7.35-7.45) ABG pCO2 25 L (35-45) mmHg ABG pO2 56 L* (83-108) mmHg ABG HCO3 20 L (21-25) mmol/L ABG O2 Saturation 90.7 L (94-97) % Chloride (98-107) mmol/L BUN (9-20) mg/dL Creatinine (0.66-1.25) mg/dL Glucose (74-99) mg/dL POC Glucose (mg/dL) 180 H 182 H (75-99) mg/dL Calcium (8.4-10.2) mg/dL Lactate Dehydrogenase (313-618) U/L C-Reactive Protein (<1.0) mg/dL Total Protein (6.3-8.2) g/dL Albumin (3.5-5.0) g/dL 05/07/21 05/07/21 05/07/21 Range/Units 07:02 08:15 09:01 Lymphocytes # (1.0-4.8) k/uL D-Dimer (<0.60) mg/L FEU ABG pH (7.35-7.45) ABG pCO2 (35-45) mmHg ABG pO2 (83-108) mmHg ABG HCO3 (21-25) mmol/L ABG O2 Saturation (94-97) % Chloride (98-107) mmol/L BUN (9-20) mg/dL Creatinine (0.66-1.25) mg/dL Glucose (74-99) mg/dL POC Glucose (mg/dL) 172 H 117 H 110 H (75-99) mg/dL Calcium (8.4-10.2) mg/dL Lactate Dehydrogenase (313-618) U/L C-Reactive Protein (<1.0) mg/dL Total Protein (6.3-8.2) g/dL Albumin (3.5-5.0) g/dL 05/07/21 Range/Units 09:57 Lymphocytes # (1.0-4.8) k/uL D-Dimer (<0.60) mg/L FEU ABG pH (7.35-7.45) ABG pCO2 (35-45) mmHg ABG pO2 (83-108) mmHg ABG HCO3 (21-25) mmol/L ABG O2 Saturation (94-97) % Chloride (98-107) mmol/L BUN (9-20) mg/dL Creatinine (0.66-1.25) mg/dL Glucose (74-99) mg/dL POC Glucose (mg/dL) 159 H (75-99) mg/dL Calcium (8.4-10.2) mg/dL Lactate Dehydrogenase (313-618) U/L C-Reactive Protein (<1.0) mg/dL Total Protein (6.3-8.2) g/dL Albumin (3.5-5.0) g/dL Assessment and Plan Plan: 1 acute COVID-19 related pneumonia. The patient was tested positive on 04/26/2021. Symptoms started approximately 6 days ago and he developed progressive constitutional symptoms, progressive respiratory failure, progressive hypoxic respiratory failure. He has been taken Decadron on outpatient basis for the past 4-5 days. The patient is a neck is hypoxic respiratory failure with diffuse bilateral pulmonary infiltrates consistent with COVID-19 related pneumonia. He is very much BiPAP dependent at pressure of 14/6 cm of water and the patient's FiO2 has been cut down to 80%. Unable to even oral intake because of significant hypoxemia and it occurs off BiPAP. Is very much BiPAP dependent. Unable to control the patient. He is currently on Decadron 6 mg IV every of hours. He received Tocilizumab Inflammatory markers remain elevated, LDH is on the rise, D dimers are also on the rise, Lovenox dose will be adjusted accordingly. He is on Precedex to control his restlessness and agitation and anxiety. He has done very well while on Precedex. 2 acute hypoxic respiratory failure currently o BiPAP for respiratory support 3 shortness of breath secondary to above 4 diabetes mellitus with steroid-induced hyperglycemia currently on an insulin drip for blood sugar control, As are running at 8 units an hour and the blood sugar control is improved 5 acute on chronic kidney disease, likely diabetic nephropathy, And the acute component is improving and the creatinine is down to 1.52. 6 hypertension 7 hyperlipidemia 8 elevated inflammatory markers secondary to COVID-19 related pneumonia. Plan Continue BiPAP for respiratory support Try to prone the patient is possible Decadron 6 mg IV every 12 hours Given Tocilizumab Lovenox 45 mg subcu every 12 hours Precedex for agitation and anxiety, titrate the dose, use morphine if needed. Put the patient on zinc oxide, vitamin C and vitamin D Proceed monitoring respiratory status and daily chest x-rays High risk of developing active dependent respiratory failure because of his progressive rapid worsening in his respiratory status over this past 1 week Insulin drip for blood sugar control IV fluids at the rate of 75 mL an hour of normal saline We'll continue to follow Critical care evaluation, > 30 min, critical condition Time with Patient: Greater than 30
[2021-05-07 11:06] LABS: Glucose,Whole Blood 165 mg/dL (75-99)
[2021-05-07 12:08] LABS: Glucose,Whole Blood 163 mg/dL (75-99)
[2021-05-07] MEDS: INSULIN DETEMIR (LEVEMIR) 100 UNIT/ML SYR SQ SCH ×2 (13:04→23:55)
[2021-05-07 13:10] LABS: Glucose,Whole Blood 155 mg/dL (75-99)
[2021-05-07] MEDS: INSULIN ASPART (NovoLOG) 100 UNIT/ML VIAL SQ SCH ×6 (13:25→23:55)
--- NOTE | 2021-05-07 14:49 | P.PN ---
Subjective Progress Note Date: 05/07/21 Principal diagnosis: shortness of breath Patient is a 65-year-old male with past medical history of diabetes mellitus type 2, hypertension, and dyslipidemia who initially presented to [facility] where he was diagnosed with DKA and COVID-19. He was subsequently transferred here secondary to hypoxia. He initially tested positive for Covid on April 29. On arrival to the ER here sodium 132, potassium 5.2, carbon dioxide 11, anion gap 23, BUN 66, creatinine 2.95, glucose of 467. He was also noted to have bilateral interstitial infiltrates on chest x-ray. He was started on Decadron as well as sliding scale insulin. In the morning of 05/05 he was hypoxic despite airvo and nonrebreather when getting up to go to the bathroom. Laboratory analysis was reviewed which showed severe DKA with a carbon dioxide of 11 and an anion gap of 23. Patient was sta rted on an insulin drip. Pulmonary critical care was contacted and arrangements were made to admit the patient to the ICU. He is also started on Remdesivir and Toci. Overnight on 05/05 his anion gap closed and he was transitioned to non- DKA insulin drip secondary to steroid use. He ultimately required BiPAP therapy. He was transitioned to subcutaneous insulin on 05/07. Patient seen and examined at bedside. He continues to feel short of breath and very thirsty. He denies any chest discomfort. He denies any nausea or vomiting. He reports he has never had DKA in the past. He is very hard of hearing. General: Ill appearing, moderate distress, appears at stated age Derm: warm, dry Head: atraumatic, normocephalic, symmetric Eyes: EOMI, no lid lag, anicteric sclera Mouth: no lip lesion, mucus membranes moist Cardiovascular: S1S2 reg, no murmur, positive posterior tibial pulse bilateral, Lungs: Rhonchi bilaterally, 3 word conversational dyspnea, no accessory muscle use, on BiPap Abdominal: soft, nontender to palpation, no guarding, no appreciable organomegaly Ext: no gross muscle atrophy, trace edema, no contractures Neuro: CN II-XI grossly intact, no focal neuro deficits Psych: Alert, oriented, appropriate affect COVID-19 pneumonia with acute hypoxic respiratory failure Toxic metabolic encephalopathy - follow CBC,CMP, CRP, LDH, and D-dimer - Rem X 1 05/05 and Toci X 1 05/05 -Decadron IV -Pulmonary recs - Zinc, Vit C, and Vit D - Dexmedetomidine Diabetes Mellitus - levemir, SSI, fixed dose -follow BS -A1c 15.3, will need insulin on discharge -Hold oral diabetic medications Acute kidney -Strict I's and O's -Avoid nephrotoxic agents -Fluid resuscitation -follow BMP Hypertension, controlled -prn hydrazine - metoprolol Dyslipidemia -Fenofibrate on hold -statin Diabetic ketoacidosis, resolved Hyperkalemia, resolved DVT prophylaxis: lovenox Discussed with: nursing, patient Anticipated discharge: undetermined Anticipated discharge place: undetermined A total of 35 minutes was spent on the care of this complex patient more than 50% of the time was spent in counseling and care coordination. Active Medications Acetaminophen (Acetaminophen Oral Susp 160 Mg/5 Ml Cup) 650 mg PO Q4H PRN PRN Reason: Pain or Fever > 100.5 Albuterol Sulfate (Albuterol Hfa Inhaler) 2 puff INHALATION RT-QID ON LICENSE OF [facility] Last Admin: 05/07/21 11:29 Dose: 2 puff Documented by: Ascorbic Acid (Ascorbic Acid 500 Mg Tab) 1,000 mg PO DAILY ON LICENSE OF [facility] Last Admin: 05/07/21 09:05 Dose: Not Given Documented by: Atorvastatin Calcium (Atorvastatin 20 Mg Tab) 20 mg PO HS ON LICENSE OF [facility] Last Admin: 05/06/21 21:15 Dose: 20 mg Documented by: Cholecalciferol (Cholecalciferol 25 Mcg (1000 Iu) Tablet) 125 mcg PO DAILY ON LICENSE OF [facility] Last Admin: 05/07/21 09:05 Dose: Not Given Documented by: Dexamethasone Sodium Phosphate (Dexamethasone Sod Phosphate 10 Mg/Ml 1 Ml Vial) 6 mg IV BID ON LICENSE OF [facility] Last Admin: 05/07/21 08:26 Dose: 6 mg Documented by: Enoxaparin Sodium (Enoxaparin 60 Mg/0.6 Ml Syringe) 50 mg SQ BID ON LICENSE OF [facility] Fenofibrate (Fenofibrate 160 Mg Tab) 160 mg PO DAILY ON LICENSE OF [facility] Last Admin: 05/07/21 09:05 Dose: Not Given Documented by: Hydralazine HCl (Hydralazine Hcl 20 Mg/Ml 1 Ml Vial) 10 mg IVP Q4HR PRN PRN Reason: Blood Pressure - High Last Admin: 05/07/21 09:52 Dose: 10 mg Documented by: Sodium Chloride (Saline 0.9%) 1,000 mls @ 75 mls/hr IV .[id number] ON LICENSE OF [facility] Last Admin: 05/07/21 14:04 Dose: 75 mls/hr Documented by: Dexmedetomidine HCl 400 mcg/ (IV Solution) 100 mls @ 0 mls/hr IV .Q0M ON LICENSE OF [facility]; Protocol Stop: 05/08/21 02:59 Last Titration: 05/07/21 14:13 Dose: 0.6 mcg/kg/hr, 14.325 mls/hr Documented by: Insulin Aspart (Insulin Aspart (Novolog) 100 Unit/Ml Vial) 0 unit SQ Q6HR ON LICENSE OF [facility]; Protocol Last Admin: 05/07/21 14:03 Dose: 1 unit Documented by: Insulin Aspart (Insulin Aspart (Novolog) 100 Unit/Ml Vial) 5 unit SQ Q6HR ON LICENSE OF [facility] Last Admin: 05/07/21 13:25 Dose: 5 unit Documented by: Insulin Detemir (Insulin Detemir (Levemir) 100 Unit/Ml Syr) 20 unit SQ DAILY@0700 ON LICENSE OF [facility] Last Admin: 05/07/21 13:04 Dose: 20 unit Documented by: Insulin Detemir (Insulin Detemir (Levemir) 100 Unit/Ml Syr) 20 unit SQ HS ON LICENSE OF [facility] Melatonin (Melatonin 5 Mg Tablet) 5 mg PO HS ON LICENSE OF [facility] Last Admin: 05/06/21 21:15 Dose: 5 mg Documented by: Metoprolol Tartrate (Metoprolol Tartrate 50 Mg Tab) 100 mg PO BID ON LICENSE OF [facility] Last Admin: 05/07/21 09:04 Dose: Not Given Documented by: Miscellaneous Information (Magnesium Replacement Protocol 1 Each Misc) 1 each MISCELLANE DAILY PRN; Protocol PRN Reason: Per Protocol Miscellaneous Information (Potassium Replacement Protocol 1 Each Misc) 1 each MISCELLANE DAILY PRN; Protocol PRN Reason: Per Protocol Morphine Sulfate (Morphine Sulfate 2 Mg/Ml Syringe) 2 mg IVP Q4H PRN PRN Reason: Pain/Discomfort Naloxone HCl (Naloxone 0.4 Mg/Ml 1 Ml Vial) 0.2 mg IV Q2M PRN PRN Reason: Opioid Reversal Pantoprazole Sodium (Pantoprazole 40 Mg/10 Ml Vial) 40 mg IVP DAILY ON LICENSE OF [facility] Last Admin: 05/07/21 08:26 Dose: 40 mg Documented by: Zinc Sulfate (Zinc Sulfate 220 Mg Cap) 220 mg PO DAILY ON LICENSE OF [facility] Last Admin: 05/07/21 09:05 Dose: Not Given Documented by: Objective - Vital Signs Vital signs: Vital Signs Temp 97.1 F L 05/07/21 12:00 Pulse 51 L 05/07/21 14:00 Resp 27 H 05/07/21 14:00 BP 150/81 05/07/21 14:00 Pulse Ox 95 05/07/21 14:00 Intake & Output 05/06/21 05/07/21 05/07/21 18:59 06:59 18:59 Intake Total 3595.414 8118.065 840.065 Output Total 1625 1385 495 Balance -137.324 695.065 345.065 Weight 97.4 kg 95.5 kg Intake: IV 606 849 600 0.9 6 24 Sodium Chloride 0.9% 1, 600 825 75 000 ml @ 150 mls/hr IV . Q6H40M [facility] Rx#:[id number] Sodium Chloride 0.9% 1, 525 000 ml @ 75 mls/hr IV . [id number] [facility] Rx#:[id number] Intake, IV Titration 881.676 211.065 240.065 Amount Dexmedetomidine/0.9% NaCl 142.160 44.155 (Pmx) 400 mcg In Empty Bag 1 bag @ Titrate IV . Q0M [facility] Rx#:[id number] Dexmedetomidine/0.9% NaCl 174.146 (Pmx) 400 mcg In Empty Bag 1 bag @ Titrate IV . Q0M [facility] Rx#:[id number] Insulin Regular 100 unit 139.516 91.910 65.919 In Sodium Chloride 0.9% 100 ml @ Per Protocol IV .Q0M [facility] Rx#:[id number] Sodium Chloride 0.9% 1, 600 75 000 ml @ 75 mls/hr IV . [id number] [facility] Rx#:[id number] Oral 1020 Output: Urine 1625 1385 495 Other: Voiding Method Indwelling Catheter Indwelling Catheter Indwelling Catheter ABP, PAP, CO, CI - Last Documented Arterial Blood Pressure 110/74 - Labs CBC & Chem 7: 05/07/21 04:00 05/07/21 04:00 Labs: Abnormal Lab Results - Last 24 Hours (Table) 05/06/21 05/06/2121 Range/Units 15:18 16:25 17:19 Lymphocytes # (1.0-4.8) k/uL D-Dimer (<0.60) mg/L FEU ABG pH (7.35-7.45) ABG pCO2 (35-45) mmHg ABG pO2 (83-108) mmHg ABG HCO3 (21-25) mmol/L ABG O2 Saturation (94-97) % Chloride (98-107) mmol/L BUN (9-20) mg/dL Creatinine (0.66-1.25) mg/dL Glucose (74-99) mg/dL POC Glucose (mg/dL) 146 H 122 H 179 H (75-99) mg/dL Calcium (8.4-10.2) mg/dL Lactate Dehydrogenase (313-618) U/L C-Reactive Protein (<1.0) mg/dL Total Protein (6.3-8.2) g/dL Albumin (3.5-5.0) g/dL 05/06/21 05/06/21 05/06/21 Range/Units 18:23 19:12 20:12 Lymphocytes # (1.0-4.8) k/uL D-Dimer (<0.60) mg/L FEU ABG pH (7.35-7.45) ABG pCO2 (35-45) mmHg ABG pO2 (83-108) mmHg ABG HCO3 (21-25) mmol/L ABG O2 Saturation (94-97) % Chloride (98-107) mmol/L BUN (9-20) mg/dL Creatinine (0.66-1.25) mg/dL Glucose (74-99) mg/dL POC Glucose (mg/dL) 234 H 167 H 184 H (75-99) mg/dL Calcium (8.4-10.2) mg/dL Lactate Dehydrogenase (313-618) U/L C-Reactive Protein (<1.0) mg/dL Total Protein (6.3-8.2) g/dL Albumin (3.5-5.0) g/dL 05/06/21 05/06/21 05/06/21 Range/Units 21:21 22:08 22:56 Lymphocytes # (1.0-4.8) k/uL D-Dimer (<0.60) mg/L FEU ABG pH (7.35-7.45) ABG pCO2 (35-45) mmHg ABG pO2 (83-108) mmHg ABG HCO3 (21-25) mmol/L ABG O2 Saturation (94-97) % Chloride (98-107) mmol/L BUN (9-20) mg/dL Creatinine (0.66-1.25) mg/dL Glucose (74-99) mg/dL POC Glucose (mg/dL) 113 H 187 H 159 H (75-99) mg/dL Calcium (8.4-10.2) mg/dL Lactate Dehydrogenase (313-618) U/L C-Reactive Protein (<1.0) mg/dL Total Protein (6.3-8.2) g/dL Albumin (3.5-5.0) g/dL 05/07/21 05/07/21 05/07/21 Range/Units 00:13 01:01 02:17 Lymphocytes # (1.0-4.8) k/uL D-Dimer (<0.60) mg/L FEU ABG pH (7.35-7.45) ABG pCO2 (35-45) mmHg ABG pO2 (83-108) mmHg ABG HCO3 (21-25) mmol/L ABG O2 Saturation (94-97) % Chloride (98-107) mmol/L BUN (9-20) mg/dL Creatinine (0.66-1.25) mg/dL Glucose (74-99) mg/dL POC Glucose (mg/dL) 176 H 139 H 152 H (75-99) mg/dL Calcium (8.4-10.2) mg/dL Lactate Dehydrogenase (313-618) U/L C-Reactive Protein (<1.0) mg/dL Total Protein (6.3-8.2) g/dL Albumin (3.5-5.0) g/dL 05/07/21 05/07/21 05/07/21 Range/Units 02:55 04:00 04:00 Lymphocytes # 0.4 L (1.0-4.8) k/uL D-Dimer (<0.60) mg/L FEU ABG pH (7.35-7.45) ABG pCO2 (35-45) mmHg ABG pO2 (83-108) mmHg ABG HCO3 (21-25) mmol/L ABG O2 Saturation (94-97) % Chloride 112 H (98-107) mmol/L BUN 41 H (9-20) mg/dL Creatinine 1.52 H (0.66-1.25) mg/dL Glucose 189 H (74-99) mg/dL POC Glucose (mg/dL) 221 H (75-99) mg/dL Calcium 8.1 L (8.4-10.2) mg/dL Lactate Dehydrogenase 1630 H (313-618) U/L C-Reactive Protein 5.2 H (<1.0) mg/dL Total Protein 5.2 L (6.3-8.2) g/dL Albumin 2.4 L (3.5-5.0) g/dL 05/07/21 05/07/21 05/07/21 Range/Units 04:00 04:09 04:10 Lymphocytes # (1.0-4.8) k/uL D-Dimer 23.24 H (<0.60) mg/L FEU ABG pH 7.52 H (7.35-7.45) ABG pCO2 25 L (35-45) mmHg ABG pO2 56 L* (83-108) mmHg ABG HCO3 20 L (21-25) mmol/L ABG O2 Saturation 90.7 L (94-97) % Chloride (98-107) mmol/L BUN (9-20) mg/dL Creatinine (0.66-1.25) mg/dL Glucose (74-99) mg/dL POC Glucose (mg/dL) 180 H (75-99) mg/dL Calcium (8.4-10.2) mg/dL Lactate Dehydrogenase (313-618) U/L C-Reactive Protein (<1.0) mg/dL Total Protein (6.3-8.2) g/dL Albumin (3.5-5.0) g/dL 05/07/21 05/07/21 05/07/21 Range/Units 05:54 07:02 08:15 Lymphocytes # (1.0-4.8) k/uL D-Dimer (<0.60) mg/L FEU ABG pH (7.35-7.45) ABG pCO2 (35-45) mmHg ABG pO2 (83-108) mmHg ABG HCO3 (21-25) mmol/L ABG O2 Saturation (94-97) % Chloride (98-107) mmol/L BUN (9-20) mg/dL Creatinine (0.66-1.25) mg/dL Glucose (74-99) mg/dL POC Glucose (mg/dL) 182 H 172 H 117 H (75-99) mg/dL Calcium (8.4-10.2) mg/dL Lactate Dehydrogenase (313-618) U/L C-Reactive Protein (<1.0) mg/dL Total Protein (6.3-8.2) g/dL Albumin (3.5-5.0) g/dL 05/07/21 05/07/21 05/07/21 Range/Units 09:01 09:57 11:04 Lymphocytes # (1.0-4.8) k/uL D-Dimer (<0.60) mg/L FEU ABG pH (7.35-7.45) ABG pCO2 (35-45) mmHg ABG pO2 (83-108) mmHg ABG HCO3 (21-25) mmol/L ABG O2 Saturation (94-97) % Chloride (98-107) mmol/L BUN (9-20) mg/dL Creatinine (0.66-1.25) mg/dL Glucose (74-99) mg/dL POC Glucose (mg/dL) 110 H 159 H 165 H (75-99) mg/dL Calcium (8.4-10.2) mg/dL Lactate Dehydrogenase (313-618) U/L C-Reactive Protein (<1.0) mg/dL Total Protein (6.3-8.2) g/dL Albumin (3.5-5.0) g/dL 05/07/21 05/07/21 Range/Units 12:07 13:08 Lymphocytes # (1.0-4.8) k/uL D-Dimer (<0.60) mg/L FEU ABG pH (7.35-7.45) ABG pCO2 (35-45) mmHg ABG pO2 (83-108) mmHg ABG HCO3 (21-25) mmol/L ABG O2 Saturation (94-97) % Chloride (98-107) mmol/L BUN (9-20) mg/dL Creatinine (0.66-1.25) mg/dL Glucose (74-99) mg/dL POC Glucose (mg/dL) 163 H 155 H (75-99) mg/dL Calcium (8.4-10.2) mg/dL Lactate Dehydrogenase (313-618) U/L C-Reactive Protein (<1.0) mg/dL Total Protein (6.3-8.2) g/dL Albumin (3.5-5.0) g/dL
[2021-05-07] MEDS: MORPHINE SULFATE 2 MG/ML SYRINGE IVP PRN ×2 (15:26→22:12)
[2021-05-07 17:34] LABS: Glucose,Whole Blood 191 mg/dL (75-99)
[2021-05-07] MEDS: MELATONIN 5 MG TABLET PO SCH (21:02)
[2021-05-07] MEDS: ATORVASTATIN 20 MG TAB PO SCH (21:02)
[2021-05-07] MEDS: ENOXAPARIN 60 MG/0.6 ML SYRINGE SQ SCH (21:03)
[2021-05-07 23:49] LABS: Glucose,Whole Blood 195 mg/dL (75-99)
[2021-05-08] MEDS: MORPHINE SULFATE 2 MG/ML SYRINGE IVP PRN ×4 (01:00→21:49)
[2021-05-08] MEDS: DEXMEDETOMIDINE/0.9% NACL(PMX) 400 MCG in EMPTY BAG 1 BAG IV SCH ×4 (01:00→22:31)
[2021-05-08] MEDS: hydrALAZINE HCL 20 MG/ML 1 ML VIAL IVP PRN ×4 (02:40→17:44)
[2021-05-08] MEDS: SODIUM CHLORIDE 0.9% 1,000 ML IV SCH (04:29)
[2021-05-08 05:44] LABS: Basophils % (A) 0 %; Eosinophils % (A) 0 %; HCT 40.8 % (39.0-53.0); HGB 13.5 gm/dL (13.0-17.5); Lymphocytes # (A) 0.4 k/uL (1.0-4.8); Lymphocytes % (A) 5 %; MCH 30.3 pg (25.0-35.0); MCHC 33.2 g/dL (31.0-37.0); MCV 91.2 fL (80.0-100.0); Mean Platelet Volume 7.9; Monocytes # (A) 0.4 k/uL (0-1.0); Monocytes % (A) 5 %; Neutrophils % (A) 89 %; Platelet Count 325 k/uL (150-450); RBC 4.47 m/uL (4.30-5.90); RDW 14.8 % (11.5-15.5); WBC 7.9 k/uL (3.8-10.6)
[2021-05-08 05:57] LABS: Albumin 2.2 g/dL (3.5-5.0); Calcium 7.7 mg/dL (8.4-10.2); Total Bilirubin 0.6 mg/dL (0.2-1.3); Total Protein 4.9 g/dL (6.3-8.2)
[2021-05-08 06:16] LABS: Glucose,Whole Blood 158 mg/dL (75-99)
[2021-05-08 06:19] LABS: C Reactive Protein 3.3 mg/dL (<1.0)
[2021-05-08] MEDS: INSULIN ASPART (NovoLOG) 100 UNIT/ML VIAL SQ SCH ×6 (06:21→18:04)
[2021-05-08] MEDS: INSULIN DETEMIR (LEVEMIR) 100 UNIT/ML SYR SQ SCH ×2 (06:25→21:47)
--- NOTE | 2021-05-08 07:18 | XR ---
EXAMINATION TYPE: XR chest 1V portable DATE OF EXAM: 05/08/2021 COMPARISON: 05/07/2020 HISTORY: Shortness of breath TECHNIQUE: Single frontal view of the chest is obtained. FINDINGS: Diffuse interstitial pattern with areas of bilateral infiltrate and cardiomegaly stable. T here is subcutaneous emphysema evidence of pneumomediastinum. No definite sizable pneumothorax. IMPRESSION: 1. Bilateral areas of infiltrate correlate for interstitial edema versus pneumonia. 2. There now appears to be evidence of pneumomediastinum correlate clinically. Report called to altagracia keenan's nurse at 7:15 AM on 05/08/2021
[2021-05-08] MEDS: ALBUTEROL HFA INHALER INHALATION SCH ×4 (07:26→19:31)
[2021-05-08] MEDS: DEXAMETHASONE SOD PHOSPHATE 10 MG/ML 1 ML VIAL IV SCH (08:14)
[2021-05-08] MEDS: PANTOPRAZOLE 40 MG/10 ML VIAL IVP SCH (08:14)
[2021-05-08] MEDS: ENOXAPARIN 60 MG/0.6 ML SYRINGE SQ SCH (08:15)
[2021-05-08] MEDS: ASCORBIC ACID 500 MG TAB PO SCH (08:20)
[2021-05-08] MEDS: METOPROLOL TARTRATE 50 MG TAB PO SCH ×2 (08:20→21:49)
[2021-05-08] MEDS: ZINC SULFATE 220 MG CAP PO SCH (08:20)
[2021-05-08] MEDS: FENOFIBRATE 160 MG TAB PO SCH (08:20)
[2021-05-08] MEDS: CHOLECALCIFEROL 25 MCG (1000 IU) TABLET PO SCH (08:20)
[2021-05-08] MEDS ORDERED: HEPARIN SODIUM 1,000 UN/ML (10ML VL) IV ONE (10:15)
[2021-05-08] MEDS ORDERED: HEPARIN SODIUM 1,000 UN/ML (10ML VL) IV PRN (10:15)
--- NOTE | 2021-05-08 10:18 | P.PN ---
Subjective Progress Note Date: 05/08/21 65-year-old male patient transferred from [facility] because of a COVID-19 related pneumonia. The patient became symptomatic approximately 6 days ago. He has a son at home was also infected with COVID-19. He developed tiredness, fatigue, fever, increased dyspnea cough and his condition progressively got worse and for that reason he ended up coming to [facility] and following that he got transferred to us for further evaluation and treatment. Note that he was tested positive on 04/26/2021. He has been receiving Decadron for the past 5-6 days. He did not see any significant improvement. His condition was progressively getting worse. I saw this patient in intensive care unit. After being on the regular oxygen, he was placed on high flow oxygen 6 L with an FiO2 of 90% to bring his saturation above 90%. Chest x-ray showing diffuse bilateral pulmonary infiltrates mainly involving the lower lobes. White cell count was at 4.8. His hemoglobin was at 13.9. Glucose was 673. LDH level was 1284, CRP level was 17.4, his d-dimer was at 1.23. He has chronic kidney disease along with diabe maico and hypertension. He has a BUN of 72 coronary creatinine of 2.97. His blood sugar was above 600 and he was started on a insulin drip for blood sugar control which is currently running at 10 units an hour. He is also on normal saline at rate of 200 mL an hour. He is lethargic. Is responsive his communicating. No focal neurological deficits. No other complaints otherwise for now. He is on Decadron 6 mg daily. He is on also on Lovenox 40 mg subcu daily. On 05/06/2021 patient seen in follow-up. He is on BiPAP at 14 and 6 and FiO2 of 100%, with a pulse ox of 94%, he is currently on Precedex at 0.4 mics per kilo per minute. Patient was started on Precedex infusion for agitation, and restlessness, trying to remove his BiPAP mask and get up unassisted. He still remains on insulin infusion at 13 units per hour, he continues on steroid scale insulin infusion protocol. His maintenance IV fluids are D5 half-normal saline of potassium chloride at a rate of 150 ML per hour, his oral intake has been very diminished related to poor oxygenation and been BiPAP dependent. Yesterday he was able to get some lunch, but no dinner because of worsening oxygenation. Today's blood gas was reviewed showing pO2 of 61, pCO2 of 31, and pH of 7.49, and this was done on BiPAP support 14/6 and 100%. Today's labs have been reviewed, white blood cell count is 8.0, hemoglobin is 13.4, platelet count is 474, d-dimer has trended up to 3.6, sodium is 142, potassium 3.6, chloride is 112, CO2 is 22, BUN is 54, and creatinine is 1.78, close this morning is 208, LDH was yesterday at 1284, CRP is 17.4. Patient remains on Decadron at 6 mg IV push twice daily, and his Lovenox dose is 40 mg daily. Today's chest x-ray shows bilateral infiltrates and pleural effusion, diffuse interstitial edema, relatively stable in appearance compared to yesterday. 05/07/2021, the patient is still hanging in there and his still BiPAP dependent. A brief trial of taking the patient off the BiPAP failed as within 5 minutes, the patient desaturated while being in the 100% nonrebreather facemask and he had to be placed on BiPAP again which is currently running at 14/6 cm of water with an FiO2 of 80 %. His generated tidal volume is in the order of 700 mL and his respiratory rate is in the mid 20s. He seems to be anxious and he is complaining of generalized body aches. Otherwise is able to tolerate the BiPAP well and one comfortable, he does quite well in his current pulse ox is 97%. He remains on Precedex which is currently running at 0.7 mcg/kg per minute. The dose being titrated based on his agitation level and restlessness. He is currently very calm and comfortable. I noted the blood gases from this morning. The numbers are essentially unchanged with a pH of 7.52 and a pCO2 of 25. As far as the pO2, it is a 56, nevertheless on the monitor, is pulse oxing 97%. His chest x-ray is showing diffuse but the pulmonary infiltrates, remains unchanged. He remains on Decadron 6 mg IV every 12 hours. Blood sugars are elevated and the blood sugar control is improved and is currently in the 150-180 range. He is on insulin drip running at 8 units an hour. His oral intake is minimal at this point in time. In terms of ongoing COVID-19 pneumonia treatment, he remains on Decadron, he received Tocilizumab. Resume at and the patient's inflammatory markers today shows a LDH level of 1630 and his d-dimer is up to 23.. He is on IV fluids in the form of normal saline at rate of 75 mL an hour. His urine output is adequate. In terms of his renal function, the patient's creatinine is down to 1.52 with a BUN of 41. No other significant events otherwise for now. Unable to prone the patient because of increased anxiety and BiPAP dependent. 2020, the patient is being seen for a follow-up in the intensive care unit. This is a case of COVID-19 related pneumonia with hypoxic respiratory failure. The patient was on BiPAP earlier yesterday. During the day, he was switched to high flow oxygen nasal cannula at 60 L with an FiO2 of 90% and 100% nonrebreather facemask. He was able to tolerate that throughout the day. During the course of his treatment, he was noted to have some puffiness of his face and clearly was developing subcutaneous emphysema along the right neck and upper shoulder area. The chest x-ray confirmed that. Furthermore, the chest x- ray from today showing some normal mediastinum on the left. There is no evidence of any pneumothorax. Earlier this morning at around 9 AM, the patient reported that he cannot breathe. He had to be placed back on BiPAP at a pressure of 14/6 cm of water and FiO2 was brought up to 100%. Chest x-ray still showing diffuse bilaterally pulmonary infiltrates with lower lobe predominance and there is evidence of subcutaneous emphysema in the right upper neck area and the pneumomediastinum. Blood gases from yesterday showed a pH of 7.52 with a pCO2 of 25 and pO2 of 66 and this was done and 80% BiPAP. While on the BiPAP, is able to generate tidal volumes up to 80,000. Nevertheless, he is tachypneic and his rate is in the high 30s. He is afebrile. He was complaining of some numbness affecting his right upper extremity. Arterial line was removed. He remains on Lovenox 0.5 mg per KG every 12 hours. This was increased based on elevated d-dimer. Inflammatory markers from today shows further increase in the d-dimer up to 33. The LDH is on the rise at 1755 and a CRP level is at 3.3. The patient is hemodynamically stable. The patient remains on Precedex running at 0.6 mcg/kg per minute. He is awake and alert and following commands and answering questions. He is lethargic. His oral intake is minimal. He is only drinking liquids. He refuses s to take pills. Refuses to take meds for now, the patient is also off the insulin drip and currently is on Levemir 40 units and vascular coverage. In addition to that the patient is taking NovoLog 5 units 4 times a day. His blood work shows his renal function is impaired is improving and creatinine is down to 1.4. The patient remains on normal saline which is running at 75 mL an hour.. Lethargic. He is weak. He is quite debilitated. Objective - Vital Signs Vital signs: Vital Signs Temp 97.4 F L 05/08/21 08:00 Pulse 74 05/08/21 09:00 Resp 34 H 05/08/21 09:00 BP 152/73 05/08/21 09:00 Pulse Ox 86 L 05/08/21 09:00 Intake & Output 05/07/21 05/08/21 05/08/21 18:59 06:59 18:59 Intake Total 7571.741 3713.132 477.172 Output Total 1005 1160 326 Balance 160.919 850.132 151.172 Weight 102.5 kg Intake: IV 900 900 225 Sodium Chloride 0.9% 1, 75 000 ml @ 150 mls/hr IV . Q6H40M [facility] Rx#:[id number] Sodium Chloride 0.9% 1, 825 900 225 000 ml @ 75 mls/hr IV . [id number] [facility] Rx#:[id number] Intake, IV Titration 265.919 90.132 12.172 Amount Dexmedetomidine/0.9% NaCl 200.000 90.132 (Pmx) 400 mcg In Empty Bag 1 bag @ Titrate IV . Q0M [facility] Rx#:[id number] Dexmedetomidine/0.9% NaCl 12.172 (Pmx) 400 mcg In Empty Bag 1 bag @ Titrate IV . Q0M [facility] Rx#:[id number] Insulin Regular 100 unit 65.919 In Sodium Chloride 0.9% 100 ml @ Per Protocol IV .Q0M [facility] Rx#:[id number] Oral 1020 240 Output: Urine 1005 1160 326 Other: Voiding Method Indwelling Catheter Indwelling Catheter Indwelling Catheter ABP, PAP, CO, CI - Last Documented Arterial Blood Pressure 110/74 - Exam GENERAL EXAM: R [place], but arousable to voice, 65-year-old white male, on BiPAP support with pressures of 14/6 and FiO2 of 10%, and a pulse ox is 94-96% comfortable in no apparent distress. HEAD: Normocephalic/atraumatic. EYES: Normal reaction of pupils, equal size. Conjunctiva pink, sclera white. NOSE: Clear with pink turbinates. THROAT: No erythema or exudates. NECK: No masses, no JVD, no thyroid enlargement, no adenopathy. There is evidence of subcutaneous emphysema in the right upper neck area. CHEST: No chest wall deformity. Symmetrical expansion. LUNGS: Equal air entry with coarse bibasilar crackles CVS: Regular rate and rhythm, normal S1 and S2, no gallops, no murmurs, no rubs ABDOMEN: Soft, nontender. No hepatosplenomegaly, normal bowel sounds, no guarding or rigidity. EXTREMITIES: No clubbing, no edema, no cyanosis, 2+ pulses and upper and lower extremities. MUSCULOSKELETAL: Muscle strength and tone normal. SPINE: No scoliosis or deformity SKIN: No rashes CENTRAL NERVOUS SYSTEM: Alert and oriented -3. No focal deficits, tone is normal in all 4 extremities. The patient is lethargic. He is quite weak and getting progressively more debilitated. Able to move all 4 extremities upon demand. PSYCHIATRIC: Alert and oriented -3. Appropriate affect. Intact judgment and insight. The patient is lethargic. - Labs CBC & Chem 7: 05/08/21 05:26 05/08/21 05:26 Labs: Abnormal Lab Results - Last 24 Hours (Table) 05/07/21 05/07/21 05/07/21 Range/Units 11:04 12:07 13:08 Lymphocytes # (1.0-4.8) k/uL D-Dimer (<0.60) mg/L FEU Chloride (98-107) mmol/L Carbon Dioxide (22-30) mmol/L BUN (9-20) mg/dL Creatinine (0.66-1.25) mg/dL Glucose (74-99) mg/dL POC Glucose (mg/dL) 165 H 163 H 155 H (75-99) mg/dL Calcium (8.4-10.2) mg/dL Lactate Dehydrogenase (313-618) U/L C-Reactive Protein (<1.0) mg/dL Total Protein (6.3-8.2) g/dL Albumin (3.5-5.0) g/dL 05/07/21 05/07/21 05/08/21 Range/Units 17:33 23:47 05:26 Lymphocytes # (1.0-4.8) k/uL D-Dimer 33.60 H (<0.60) mg/L FEU Chloride (98-107) mmol/L Carbon Dioxide (22-30) mmol/L BUN (9-20) mg/dL Creatinine (0.66-1.25) mg/dL Glucose (74-99) mg/dL POC Glucose (mg/dL) 191 H 195 H (75-99) mg/dL Calcium (8.4-10.2) mg/dL Lactate Dehydrogenase (313-618) U/L C-Reactive Protein (<1.0) mg/dL Total Protein (6.3-8.2) g/dL Albumin (3.5-5.0) g/dL 05/08/21 05/08/21 05/08/21 Range/Units 05:26 05:26 06:15 Lymphocytes # 0.4 L (1.0-4.8) k/uL D-Dimer (<0.60) mg/L FEU Chloride 114 H (98-107) mmol/L Carbon Dioxide 17 L (22-30) mmol/L BUN 40 H (9-20) mg/dL Creatinine 1.45 H (0.66-1.25) mg/dL Glucose 189 H (74-99) mg/dL POC Glucose (mg/dL) 158 H (75-99) mg/dL Calcium 7.7 L (8.4-10.2) mg/dL Lactate Dehydrogenase 1755 H (313-618) U/L C-Reactive Protein 3.3 H (<1.0) mg/dL Total Protein 4.9 L (6.3-8.2) g/dL Albumin 2.2 L (3.5-5.0) g/dL Assessment and Plan Plan: 1 acute COVID-19 related pneumonia. The patient was tested positive on 04/26/2021. Symptoms started approximately 6 days ago and he developed progressive constitutional symptoms, progressive respiratory failure, progressive hypoxic respiratory failure. He has been taken Decadron on outpatient basis for the past 4-5 days. The patient is a neck is hypoxic respiratory failure with diffuse bilateral pulmonary infiltrates consistent with COVID-19 related pneumonia. He is very much BiPAP dependent at pressure of 14/6 cm of water and the patient's FiO2 has been cut down to 100%. Yesterday, the patient was able to tolerate high flow oxygen along with a nonrebreather facemask during the day and he did some limited morning. Subsequently earlier this morning, he became more short of breath and he hasn't placed back on BiPAP. Currently is on a BiPAP at a pressure of 14/6 with an FiO2 of 100%. He is quite tachypneic. 2 acute hypoxic respiratory failure currently o BiPAP for respiratory support 3 subcutaneous emphysema in the right neck area in addition to pneumomediastinum, complications of COVID-19 infection/pneumonia 4 diabetes mellitus with steroid-induced hyperglycemia currently on an insulin drip and the patient was transitioned to Levemir insulin with adequate blood sugar control 5 acute on chronic kidney disease, likely diabetic nephropathy, And the acute component is improving and the creatinine is down to 1.45 6 hypertension 7 hyperlipidemia 8 elevated inflammatory markers secondary to COVID-19 related pneumonia. Due to ongoing rise and the d-dimer and the LDH. Begin IV heparin 9 pain and numbness in his right upper extremity. Arterial was removed. There are adequate pulses. Consider microemboli Plan Continue BiPAP for respiratory support increase decadron 20 mg IV every 24 hours Given Tocilizumab, consider second dose. This will be discussed with pharmacy Lovenox to be stopped and the patient will be switched IV heparin and will monitor the d-dimer is. Precedex for agitation and anxiety, titrate the dose, use morphine if needed. Put the patient on zinc oxide, vitamin C and vitamin D Proceed monitoring respiratory status and daily chest x-rays High risk of developing active dependent respiratory failure because of his progressive rapid worsening in his respiratory status over this past 1 week. In addition, there is development of no mediastinum and saphenous emphysema. These are signs of COVID-19 related complications. IV heparin and stop Lovenox for now IV fluids at the rate of 75 mL an hour of normal saline We'll continue to follow Will avoid intubation as long as the patient is still holding onto his BiPAP. This is obviously an concerned and the patient is likely going to require intubation mechanical ventilation and there is any worsening or decompensation. Critical care evaluation, > 30 min, critical condition Time with Patient: Greater than 30
[2021-05-08 10:36] LABS: INR 1.4 (<1.2); Prothrombin Time 14.3 sec (9.0-12.0)
[2021-05-08] MEDS: DEXAMETHASONE SOD PHOSPHATE 20 MG in DEXTROSE 5% IN WATER 50 ML IV SCH ×2 (10:55)
[2021-05-08] MEDS: HEPARIN SOD,PORK IN 0.45% NACL 25,000 UNIT in 0.45% NACL 1 250ML.BAG IV SCH (10:55)
--- NOTE | 2021-05-08 11:30 | P.PN ---
Subjective Progress Note Date: 05/08/21 Principal diagnosis: shortness of breath Patient is a 65-year-old male with past medical history of diabetes mellitus type 2, hypertension, and dyslipidemia who initially presented to [facility] where he was diagnosed with DKA and COVID-19. He was subsequently transferred here secondary to hypoxia. He initially tested positive for Covid on April 29. On arrival to the ER here sodium 132, potassium 5.2, carbon dioxide 11, anion gap 23, BUN 66, creatinine 2.95, glucose of 467. He was also noted to have bilateral interstitial infiltrates on chest x-ray. He was started on Decadron as well as sliding scale insulin. In the morning of 05/05 he was hypoxic despite airvo and nonrebreather when getting up to go to the bathroom. Laboratory analysis was reviewed which showed severe DKA with a carbon dioxide of 11 and an anion gap of 23. Patient was sta rted on an insulin drip. Pulmonary critical care was contacted and arrangements were made to admit the patient to the ICU. He is also started on Remdesivir and Toci. Overnight on 05/05 his anion gap closed and he was transitioned to non- DKA insulin drip secondary to steroid use. He ultimately required BiPAP therapy. He was transitioned to subcutaneous insulin on 05/07. He started having right hand pain and dimished blood flow. He was able to be off bipap and on airvo overnight 05/07-05/08, he did develop sub cutaneous emphysema and was found to have pneumomediastinum. He was started on a heparin gtt. Patient seen and examined at bedside. He is sleeping, he states that he is not short of breath, no nausea. General: Ill appearing, moderate distress, appears at stated age Derm: warm, dry Head: atraumatic, normocephalic, symmetric Eyes: EOMI, no lid lag, anicteric sclera Mouth: no lip lesion, mucus membranes moist Cardiovascular: S1S2 reg, no murmur, positive posterior tibial pulse bilateral, Lungs: Rhonchi bilaterally, no accessory muscle use, on BiPap, + crepitus over right chest wall. Abdominal: soft, nontender to palpation, no guarding, no appreciable organomegaly Ext: no gross muscle atrophy, trace edema, no contractures Neuro: CN II-XI grossly intact, no focal neuro deficits Psych: Alert, oriented, appropriate affect COVID-19 pneumonia with acute hypoxic respiratory failure Toxic metabolic encephalopathy - follow CBC,CMP, CRP, LDH, and D-dimer - Rem X 1 05/05 and Toci X 1 05/05 - Decadron IV - Pulmonary recs - Zinc, Vit C, and Vit D - Dexmedetomidine - heparin gtt with increased d-dimer, will need CT PE if improves to determine chcf anticoagulation needs Diabetes Mellitus - levemir, SSI, fixed dose -follow BS -A1c 15.3, will need insulin on discharge -Hold oral diabetic medications Acute kidney -Strict I's and O's -Avoid nephrotoxic agents -Fluid resuscitation -follow BMP Hypertension, controlled -prn hydrazine - metoprolol Dyslipidemia -Fenofibrate on hold -statin Diabetic ketoacidosis, resolved Hyperkalemia, resolved DVT prophylaxis: heparin gtt Discussed with: nursing, patient, Dr. Sher Anticipated discharge: undetermined Anticipated discharge place: undetermined A total of 35 minutes was spent on the care of this complex patient more than 50% of the time was spent in counseling and care coordination. Active Medications Acetaminophen (Acetaminophen Oral Susp 160 Mg/5 Ml Cup) 650 mg PO Q4H PRN PRN Reason: Pain or Fever > 100.5 Albuterol Sulfate (Albuterol Hfa Inhaler) 2 puff INHALATION RT-QID [facility] Last Admin: 05/08/21 07:26 Dose: 2 puff Documented by: Ascorbic Acid (Ascorbic Acid 500 Mg Tab) 1,000 mg PO DAILY [facility] Last Admin: 05/08/21 08:20 Dose: Not Given Documented by: Atorvastatin Calcium (Atorvastatin 20 Mg Tab) 20 mg PO HS [facility] Last Admin: 05/07/21 21:02 Dose: 20 mg Documented by: Cholecalciferol (Cholecalciferol 25 Mcg (1000 Iu) Tablet) 125 mcg PO DAILY [facility] Last Admin: 05/08/21 08:20 Dose: Not Given Documented by: Fenofibrate (Fenofibrate 160 Mg Tab) 160 mg PO DAILY [facility] Last Admin: 05/08/21 08:20 Dose: Not Given Documented by: Heparin Sodium (Porcine) (Heparin Sodium 1,000 Un/Ml (10ml Vl)) 0 unit IV PER PROTOCOL PRN; Protocol PRN Reason: Low PTT Hydralazine HCl (Hydralazine Hcl 20 Mg/Ml 1 Ml Vial) 10 mg IVP Q4HR PRN PRN Reason: Blood Pressure - High Last Admin: 05/08/21 06:21 Dose: 10 mg Documented by: Dexmedetomidine HCl 400 mcg/ (IV Solution) 100 mls @ 0 mls/hr IV .Q0M [facility]; Protocol Stop: 05/09/21 05:52 Last Titration: 05/08/21 09:12 Dose: 0.6 mcg/kg/hr, 15.375 mls/hr Documented by: Heparin Sodium/Sodium Chloride (25,000 unit/ Sodium Chloride) 250 mls @ 10.045 mls/hr IV .Q24H [facility]; Protocol Last Admin: 05/08/21 10:55 Dose: 9.8 units/kg/hr, 10.045 mls/hr Documented by: Dexamethasone Sodium Phosphate (20 mg/ Dextrose/Water) 52 mls @ 100 mls/hr IV DAILY [facility] Last Admin: 05/08/21 10:55 Dose: 100 mls/hr Documented by: Sodium Chloride (Saline 0.45%) 1,000 mls @ 75 mls/hr IV .[id number] [facility] Insulin Aspart (Insulin Aspart (Novolog) 100 Unit/Ml Vial) 0 unit SQ Q6HR [facility]; Protocol Last Admin: 05/08/21 06:21 Dose: 1 unit Documented by: Insulin Aspart (Insulin Aspart (Novolog) 100 Unit/Ml Vial) 5 unit SQ Q6HR [facility] Last Admin: 05/08/21 06:22 Dose: 5 unit Documented by: Insulin Detemir (Insulin Detemir (Levemir) 100 Unit/Ml Syr) 20 unit SQ DAILY@0700 [facility] Last Admin: 05/08/21 06:25 Dose: 20 unit Documented by: Insulin Detemir (Insulin Detemir (Levemir) 100 Unit/Ml Syr) 20 unit SQ HS [facility] Last Admin: 05/07/21 23:55 Dose: 20 unit Documented by: Melatonin (Melatonin 5 Mg Tablet) 5 mg PO [facility] Last Admin: 05/07/21 21:02 Dose: 5 mg Documented by: Metoprolol Tartrate (Metoprolol Tartrate 50 Mg Tab) 100 mg PO BID [facility] Last Admin: 05/08/21 08:20 Dose: Not Given Documented by: Miscellaneous Information (Magnesium Replacement Protocol 1 Each Misc) 1 each MISCELLANE DAILY PRN; Protocol PRN Reason: Per Protocol Miscellaneous Information (Potassium Replacement Protocol 1 Each Misc) 1 each MISCELLANE DAILY PRN; Protocol PRN Reason: Per Protocol Morphine Sulfate (Morphine Sulfate 2 Mg/Ml Syringe) 2 mg IVP Q4H PRN PRN Reason: Pain/Discomfort Last Admin: 05/08/21 08:55 Dose: 2 mg Documented by: Naloxone HCl (Naloxone 0.4 Mg/Ml 1 Ml Vial) 0.2 mg IV Q2M PRN PRN Reason: Opioid Reversal Pantoprazole Sodium (Pantoprazole 40 Mg/10 Ml Vial) 40 mg IVP DAILY [facility] Last Admin: 05/08/21 08:14 Dose: 40 mg Documented by: Zinc Sulfate (Zinc Sulfate 220 Mg Cap) 220 mg PO DAILY [facility] Last Admin: 05/08/21 08:20 Dose: Not Given Documented by: Objective - Vital Signs Vital signs: Vital Signs Temp 97.4 F L 05/08/21 08:00 Pulse 53 L 05/08/21 11:00 Resp 27 H 05/08/21 11:00 BP 154/75 05/08/21 11:00 Pulse Ox 90 L 05/08/21 11:00 Intake & Output 05/07/21 05/08/21 05/08/21 18:59 06:59 18:59 Intake Total 9131.852 7437.132 627.172 Output Total 1005 1160 416 Balance 160.919 850.132 211.172 Weight 102.5 kg Intake: IV 900 900 375 Sodium Chloride 0.9% 1, 75 000 ml @ 150 mls/hr IV . Q6H40M [facility] Rx#:[id number] Sodium Chloride 0.9% 1, 825 900 375 000 ml @ 75 mls/hr IV . [id number] [facility] Rx#:[id number] Intake, IV Titration 265.919 90.132 12.172 Amount Dexmedetomidine/0.9% NaCl 200.000 90.132 (Pmx) 400 mcg In Empty Bag 1 bag @ Titrate IV . Q0M [facility] Rx#:[id number] Dexmedetomidine/0.9% NaCl 12.172 (Pmx) 400 mcg In Empty Bag 1 bag @ Titrate IV . Q0M [facility] Rx#:[id number] Insulin Regular 100 unit 65.919 In Sodium Chloride 0.9% 100 ml @ Per Protocol IV .Q0M [facility] Rx#:[id number] Oral 1020 240 Output: Urine 1005 1160 416 Other: Voiding Method Indwelling Catheter Indwelling Catheter Indwelling Catheter ABP, PAP, CO, CI - Last Documented Arterial Blood Pressure 110/74 - Labs CBC & Chem 7: 05/08/21 05:26 05/08/21 05:26 Labs: Abnormal Lab Results - Last 24 Hours (Table) 05/07/21 05/07/21 05/07/21 Range/Units 12:07 13:08 17:33 Lymphocytes # (1.0-4.8) k/uL PT (9.0-12.0) sec INR (<1.2) D-Dimer (<0.60) mg/L FEU Chloride (98-107) mmol/L Carbon Dioxide (22-30) mmol/L BUN (9-20) mg/dL Creatinine (0.66-1.25) mg/dL Glucose (74-99) mg/dL POC Glucose (mg/dL) 163 H 155 H 191 H (75-99) mg/dL Calcium (8.4-10.2) mg/dL Lactate Dehydrogenase (313-618) U/L C-Reactive Protein (<1.0) mg/dL Total Protein (6.3-8.2) g/dL Albumin (3.5-5.0) g/dL 05/07/21 05/08/21 05/08/21 Range/Units 23:47 05:26 05:26 Lymphocytes # (1.0-4.8) k/uL PT (9.0-12.0) sec INR (<1.2) D-Dimer 33.60 H (<0.60) mg/L FEU Chloride 114 H (98-107) mmol/L Carbon Dioxide 17 L (22-30) mmol/L BUN 40 H (9-20) mg/dL Creatinine 1.45 H (0.66-1.25) mg/dL Glucose 189 H (74-99) mg/dL POC Glucose (mg/dL) 195 H (75-99) mg/dL Calcium 7.7 L (8.4-10.2) mg/dL Lactate Dehydrogenase 1755 H (313-618) U/L C-Reactive Protein 3.3 H (<1.0) mg/dL Total Protein 4.9 L (6.3-8.2) g/dL Albumin 2.2 L (3.5-5.0) g/dL 05/08/21 05/08/21 05/08/21 Range/Units 05:26 05:26 06:15 Lymphocytes # 0.4 L (1.0-4.8) k/uL PT 14.3 H (9.0-12.0) sec INR 1.4 H (<1.2) D-Dimer (<0.60) mg/L FEU Chloride (98-107) mmol/L Carbon Dioxide (22-30) mmol/L BUN (9-20) mg/dL Creatinine (0.66-1.25) mg/dL Glucose (74-99) mg/dL POC Glucose (mg/dL) 158 H (75-99) mg/dL Calcium (8.4-10.2) mg/dL Lactate Dehydrogenase (313-618) U/L C-Reactive Protein (<1.0) mg/dL Total Protein (6.3-8.2) g/dL Albumin (3.5-5.0) g/dL
[2021-05-08] MEDS: SODIUM CHLORIDE 0.45% 1,000 ML IV SCH (11:37)
[2021-05-08 11:54] LABS: Glucose,Whole Blood 159 mg/dL (75-99)
[2021-05-08 17:58] LABS: Glucose,Whole Blood 191 mg/dL (75-99)
[2021-05-08] MEDS: ATORVASTATIN 20 MG TAB PO SCH (21:48)
[2021-05-08] MEDS: MELATONIN 5 MG TABLET PO SCH (21:48)
[2021-05-09 00:18] LABS: Glucose,Whole Blood 174 mg/dL (75-99)
[2021-05-09] MEDS: INSULIN ASPART (NovoLOG) 100 UNIT/ML VIAL SQ SCH ×8 (00:28→18:18)
[2021-05-09] MEDS: SODIUM CHLORIDE 0.45% 1,000 ML IV SCH ×2 (00:29→18:18)
[2021-05-09 02:00] LABS: ABG Base Excess -3.7 mmol/L; ABG HCO3 20 mmol/L (21-25); ABG Oxygen Saturation 88.8 % (94-97); ABG PCO2 25 mmHg (35-45); ABG TCO2 20 mmol/L (19-24); Allen Test Performed? Yes
[2021-05-09 02:07] LABS: ABG PO2 54 mmHg (83-108)
[2021-05-09] MEDS: MORPHINE SULFATE 2 MG/ML SYRINGE IVP PRN ×4 (03:18→17:53)
[2021-05-09 03:34] LABS: Basophils % (A) 1 %; Eosinophils % (A) 0 %; HCT 41.8 % (39.0-53.0); HGB 13.8 gm/dL (13.0-17.5); Lymphocytes # (A) 0.4 k/uL (1.0-4.8); Lymphocytes % (A) 4 %; MCH 29.7 pg (25.0-35.0); MCHC 32.9 g/dL (31.0-37.0); MCV 90.2 fL (80.0-100.0); Monocytes # (A) 0.7 k/uL (0-1.0); Monocytes % (A) 8 %; Neutrophils # (A) 7.6 k/uL (1.3-7.7); Neutrophils % (A) 87 %; Platelet Count 303 k/uL (150-450); RBC 4.64 m/uL (4.30-5.90); RDW 14.6 % (11.5-15.5); WBC 8.8 k/uL (3.8-10.6)
[2021-05-09 03:54] LABS: INR 1.4 (<1.2); Prothrombin Time 14.4 sec (9.0-12.0)
[2021-05-09 04:38] LABS: Albumin 2.2 g/dL (3.5-5.0); C Reactive Protein 2.3 mg/dL (<1.0); Total Bilirubin 0.5 mg/dL (0.2-1.3); Total Protein 4.9 g/dL (6.3-8.2)
[2021-05-09 05:10] LABS: Glucose,Whole Blood 157 mg/dL (75-99)
[2021-05-09] MEDS: DEXMEDETOMIDINE/0.9% NACL(PMX) 400 MCG in EMPTY BAG 1 BAG IV SCH ×3 (05:32→17:52)
[2021-05-09] MEDS: hydrALAZINE HCL 20 MG/ML 1 ML VIAL IVP PRN (05:51)
[2021-05-09] MEDS: INSULIN DETEMIR (LEVEMIR) 100 UNIT/ML SYR SQ SCH ×2 (06:47→21:51)
[2021-05-09] MEDS: PANTOPRAZOLE 40 MG/10 ML VIAL IVP SCH (08:06)
[2021-05-09] MEDS: ASCORBIC ACID 500 MG TAB PO SCH (08:07)
[2021-05-09] MEDS: CHOLECALCIFEROL 25 MCG (1000 IU) TABLET PO SCH (08:07)
[2021-05-09] MEDS: ZINC SULFATE 220 MG CAP PO SCH (08:08)
[2021-05-09] MEDS: DEXAMETHASONE SOD PHOSPHATE 20 MG in DEXTROSE 5% IN WATER 50 ML IV SCH ×2 (08:08)
[2021-05-09] MEDS: METOPROLOL TARTRATE 50 MG TAB PO SCH ×2 (08:08→21:51)
[2021-05-09] MEDS: FENOFIBRATE 160 MG TAB PO SCH (08:09)
[2021-05-09] MEDS: ALBUTEROL HFA INHALER INHALATION SCH ×4 (08:28→19:29)
--- NOTE | 2021-05-09 09:06 | XR ---
EXAMINATION TYPE: XR chest 1V portable DATE OF EXAM: 05/09/2021 COMPARISON: 05/08/2021 HISTORY: Abnormal x-ray TECHNIQUE: Single frontal view of the chest is obtained. FINDINGS: There is subcutaneous emphysema overlying the soft tissues of neck and findings suggestive of pneumomediastinum. Bilateral infiltrate and small effusion stable. Heart enlarged. No pneumonia. IMPRESSION: 1. Findings compatible with pneumomediastinum with persistent bilateral infiltrate and small effusion .
[2021-05-09] MEDS: HEPARIN SOD,PORK IN 0.45% NACL 25,000 UNIT in 0.45% NACL 1 250ML.BAG IV SCH (10:53)
--- NOTE | 2021-05-09 11:41 | P.PN ---
Subjective Progress Note Date: 05/09/21 Principal diagnosis: shortness of breath Patient is a 65-year-old male with past medical history of diabetes mellitus type 2, hypertension, and dyslipidemia who initially presented to [facility] where he was diagnosed with DKA and COVID-19. He was subsequently transferred here secondary to hypoxia. He initially tested positive for Covid on April 29. On arrival to the ER here sodium 132, potassium 5.2, carbon dioxide 11, anion gap 23, BUN 66, creatinine 2.95, glucose of 467. He was also noted to have bilateral interstitial infiltrates on chest x-ray. He was started on Decadron as well as sliding scale insulin. In the morning of 05/05 he was hypoxic despite airvo and nonrebreather when getting up to go to the bathroom. Laboratory analysis was reviewed which showed severe DKA with a carbon dioxide of 11 and an anion gap of 23. Patient was sta rted on an insulin drip. Pulmonary critical care was contacted and arrangements were made to admit the patient to the ICU. He is also started on Remdesivir and Toci. Overnight on 05/05 his anion gap closed and he was transitioned to non- DKA insulin drip secondary to steroid use. He ultimately required BiPAP therapy. He was transitioned to subcutaneous insulin on 05/07. He started having right hand pain and dimished blood flow. He was able to be off bipap and on airvo overnight 05/07-05/08, he did develop sub cutaneous emphysema and was found to have pneumomediastinum. He was started on a heparin gtt. he continued to require BiPap Patient seen and examined at bedside. He is complaining of pressure and not being able to tolerate the Bipap as it is to much pressure. He complains of being to dry, Denies overt chest pain, no nausea, no vomiting. General: Ill appearing, moderate distress, appears at stated age Derm: warm, dry Head: atraumatic, normocephalic, symmetric Eyes: EOMI, no lid lag, anicteric sclera Mouth: no lip lesion, mucus membranes dry Cardiovascular: S1S2 reg, no murmur, positive posterior tibial pulse bilateral, Lungs: Rhonchi bilaterally, no accessory muscle use, on BiPap, + crepitus over right chest wall. Abdominal: soft, nontender to palpation, no guarding, no appreciable organomegaly Ext: no gross muscle atrophy, trace edema, no contractures Neuro: CN II-XI grossly intact, no focal neuro deficits Psych: Alert, oriented, appropriate affect COVID-19 pneumonia with acute hypoxic respiratory failure pneumomedistinum ARDS Toxic metabolic encephalopathy - follow CBC,CMP, CRP, LDH, and D-dimer - Rem X 1 05/05 and Toci X 1 05/05 - Decadron IV - Pulmonary recs - Zinc, Vit C, and Vit D - Dexmedetomidine - heparin gtt with increased d-dimer, will need CT PE if improves to determine terminal operations manager anticoagulation needs Diabetes Mellitus - levemir, SSI, fixed dose -follow BS -A1c 15.3, will need insulin on discharge -Hold oral diabetic medications Acute kidney -Strict I's and O's -Avoid nephrotoxic agents -Fluid resuscitation -follow BMP Hypertension, controlled -prn hydrazine - metoprolol Dyslipidemia -Fenofibrate on hold -statin Diabetic ketoacidosis, resolved Hyperkalemia, resolved DVT prophylaxis: heparin gtt Discussed with: nursing, patient Anticipated discharge: undetermined Anticipated discharge place: undetermined A total of 35 minutes was spent on the care of this complex patient more than 50% of the time was spent in counseling and care coordination. Active Medications Acetaminophen (Acetaminophen Oral Susp 160 Mg/5 Ml Cup) 650 mg PO Q4H PRN PRN Reason: Pain or Fever > 100.5 Albuterol Sulfate (Albuterol Hfa Inhaler) 2 puff INHALATION RT-QID [facility] Last Admin: 05/09/21 08:28 Dose: 2 puff Documented by: Ascorbic Acid (Ascorbic Acid 500 Mg Tab) 1,000 mg PO DAILY [facility] Last Admin: 05/09/21 08:07 Dose: 1,000 mg Documented by: Atorvastatin Calcium (Atorvastatin 20 Mg Tab) 20 mg PO HS [facility] Last Admin: 05/08/21 21:48 Dose: 20 mg Documented by: Cholecalciferol (Cholecalciferol 25 Mcg (1000 Iu) Tablet) 125 mcg PO DAILY [facility] Last Admin: 05/09/21 08:07 Dose: 125 mcg Documented by: Fenofibrate (Fenofibrate 160 Mg Tab) 160 mg PO DAILY [facility] Last Admin: 05/09/21 08:09 Dose: 160 mg Documented by: Heparin Sodium (Porcine) (Heparin Sodium 1,000 Un/Ml (10ml Vl)) 0 unit IV PER PROTOCOL PRN; Protocol PRN Reason: Low PTT Hydralazine HCl (Hydralazine Hcl 20 Mg/Ml 1 Ml Vial) 10 mg IVP Q4HR PRN PRN Reason: Blood Pressure - High Last Admin: 05/09/21 05:51 Dose: 10 mg Documented by: Heparin Sodium/Sodium Chloride (25,000 unit/ Sodium Chloride) 250 mls @ 10.045 mls/hr IV .Q24H [facility]; Protocol Last Admin: 05/09/21 10:53 Dose: 7.8 units/kg/hr, 7.995 mls/hr Documented by: Dexamethasone Sodium Phosphate (20 mg/ Dextrose/Water) 52 mls @ 100 mls/hr IV DAILY [facility] Last Admin: 05/09/21 08:08 Dose: 100 mls/hr Documented by: Sodium Chloride (Saline 0.45%) 1,000 mls @ 75 mls/hr IV .[id number] [facility] Last Admin: 05/09/21 00:29 Dose: 75 mls/hr Documented by: Dexmedetomidine HCl 400 mcg/ (IV Solution) 100 mls @ 0 mls/hr IV .Q0M [facility]; Protocol Stop: 05/10/21 10:51 Last Admin: 05/09/21 11:24 Dose: 0.6 mcg/kg/hr, 14.955 mls/hr Documented by: Insulin Aspart (Insulin Aspart (Novolog) 100 Unit/Ml Vial) 0 unit SQ Q6HR [facility]; Protocol Last Admin: 05/09/21 06:02 Dose: 1 unit Documented by: Insulin Aspart (Insulin Aspart (Novolog) 100 Unit/Ml Vial) 5 unit SQ Q6HR [facility] Last Admin: 05/09/21 06:02 Dose: 5 unit Documented by: Insulin Detemir (Insulin Detemir (Levemir) 100 Unit/Ml Syr) 20 unit SQ DAILY@0700 [facility] Last Admin: 05/09/21 06:47 Dose: 20 unit Documented by: Insulin Detemir (Insulin Detemir (Levemir) 100 Unit/Ml Syr) 20 unit SQ HS [facility] Last Admin: 05/08/21 21:47 Dose: 20 unit Documented by: Melatonin (Melatonin 5 Mg Tablet) 5 mg PO HS [facility] Last Admin: 05/08/21 21:48 Dose: 5 mg Documented by: Metoprolol Tartrate (Metoprolol Tartrate 50 Mg Tab) 100 mg PO BID [facility] Last Admin: 05/09/21 08:08 Dose: Not Given Documented by: Miscellaneous Information (Magnesium Replacement Protocol 1 Each Misc) 1 each MISCELLANE DAILY PRN; Protocol PRN Reason: Per Protocol Miscellaneous Information (Potassium Replacement Protocol 1 Each Misc) 1 each MISCELLANE DAILY PRN; Protocol PRN Reason: Per Protocol Morphine Sulfate (Morphine Sulfate 2 Mg/Ml Syringe) 2 mg IVP Q4H PRN PRN Reason: Pain/Discomfort Last Admin: 05/09/21 08:42 Dose: 2 mg Documented by: Naloxone HCl (Naloxone 0.4 Mg/Ml 1 Ml Vial) 0.2 mg IV Q2M PRN PRN Reason: Opioid Reversal Pantoprazole Sodium (Pantoprazole 40 Mg/10 Ml Vial) 40 mg IVP DAILY [facility] Last Admin: 05/09/21 08:06 Dose: 40 mg Documented by: Zinc Sulfate (Zinc Sulfate 220 Mg Cap) 220 mg PO DAILY [facility] Last Admin: 05/09/21 08:08 Dose: 220 mg Documented by: Objective - Vital Signs Vital signs: Vital Signs Temp 96.4 F L 05/09/21 08:00 Pulse 63 05/09/21 11:00 Resp 22 05/09/21 11:00 BP 138/71 05/09/21 11:00 Pulse Ox 90 L 05/09/21 11:00 Intake & Output 05/08/21 05/09/21 05/09/21 18:59 06:59 18:59 Intake Total 2395.908 5508.119 520.109 Output Total 1186 1080 375 Balance 112.428 557.119 145.109 Weight 99.7 kg Intake: IV 900 900 375 Sodium Chloride 0.45% 1, 525 900 375 000 ml @ 75 mls/hr IV . [id number] [facility] Rx#:[id number] Sodium Chloride 0.9% 1, 375 000 ml @ 75 mls/hr IV . [id number] [facility] Rx#:[id number] Intake, IV Titration 158.428 197.119 145.109 Amount Dexmedetomidine/0.9% NaCl 100.000 197.119 (Pmx) 400 mcg In Empty Bag 1 bag @ Titrate IV . Q0M [facility] Rx#:[id number] Heparin Sod,Pork in 0.45% 58.428 145.109 NaCl 25,000 unit In 0.45 % NaCl 1 250ml.bag @ 9.8 UNITS/KG/HR 10.045 mls/hr IV .Q24H [facility] Rx#: [id number] Oral 240 540 Output: Urine 1186 1080 375 Other: Voiding Method Indwelling Catheter Indwelling Catheter Indwelling Catheter ABP, PAP, CO, CI - Last Documented Arterial Blood Pressure 110/74 - Labs CBC & Chem 7: 05/09/21 03:17 05/09/21 03:17 Labs: Abnormal Lab Results - Last 24 Hours (Table) 05/08/21 05/08/21 05/08/21 Range/Units 11:52 16:13 17:57 Lymphocytes # (1.0-4.8) k/uL PT (9.0-12.0) sec INR (<1.2) APTT 68.2 H (22.0-30.0) sec D-Dimer (<0.60) mg/L FEU ABG pH (7.35-7.45) ABG pCO2 (35-45) mmHg ABG pO2 (83-108) mmHg ABG HCO3 (21-25) mmol/L ABG O2 Saturation (94-97) % Chloride (98-107) mmol/L Carbon Dioxide (22-30) mmol/L BUN (9-20) mg/dL Creatinine (0.66-1.25) mg/dL Glucose (74-99) mg/dL POC Glucose (mg/dL) 159 H 191 H (75-99) mg/dL Calcium (8.4-10.2) mg/dL Lactate Dehydrogenase (313-618) U/L C-Reactive Protein (<1.0) mg/dL Total Protein (6.3-8.2) g/dL Albumin (3.5-5.0) g/dL 05/08/21 05/09/21 05/09/21 Range/Units 22:26 00:15 01:58 Lymphocytes # (1.0-4.8) k/uL PT (9.0-12.0) sec INR (<1.2) APTT 47.1 H (22.0-30.0) sec D-Dimer (<0.60) mg/L FEU ABG pH 7.50 H (7.35-7.45) ABG pCO2 25 L (35-45) mmHg ABG pO2 54 L* (83-108) mmHg ABG HCO3 20 L (21-25) mmol/L ABG O2 Saturation 88.8 L (94-97) % Chloride (98-107) mmol/L Carbon Dioxide (22-30) mmol/L BUN (9-20) mg/dL Creatinine (0.66-1.25) mg/dL Glucose (74-99) mg/dL POC Glucose (mg/dL) 174 H (75-99) mg/dL Calcium (8.4-10.2) mg/dL Lactate Dehydrogenase (313-618) U/L C-Reactive Protein (<1.0) mg/dL Total Protein (6.3-8.2) g/dL Albumin (3.5-5.0) g/dL 05/09/21 05/09/21 05/09/21 Range/Units 03:17 03:17 03:17 Lymphocytes # 0.4 L (1.0-4.8) k/uL PT 14.4 H (9.0-12.0) sec INR 1.4 H (<1.2) APTT (22.0-30.0) sec D-Dimer 29.18 H (<0.60) mg/L FEU ABG pH (7.35-7.45) ABG pCO2 (35-45) mmHg ABG pO2 (83-108) mmHg ABG HCO3 (21-25) mmol/L ABG O2 Saturation (94-97) % Chloride 116 H (98-107) mmol/L Carbon Dioxide 18 L (22-30) mmol/L BUN 37 H (9-20) mg/dL Creatinine 1.39 H (0.66-1.25) mg/dL Glucose 175 H (74-99) mg/dL POC Glucose (mg/dL) (75-99) mg/dL Calcium 8.0 L (8.4-10.2) mg/dL Lactate Dehydrogenase 2052 H (313-618) U/L C-Reactive Protein 2.3 H (<1.0) mg/dL Total Protein 4.9 L (6.3-8.2) g/dL Albumin 2.2 L (3.5-5.0) g/dL 05/09/21 Range/Units 05:09 Lymphocytes # (1.0-4.8) k/uL PT (9.0-12.0) sec INR (<1.2) APTT (22.0-30.0) sec D-Dimer (<0.60) mg/L FEU ABG pH (7.35-7.45) ABG pCO2 (35-45) mmHg ABG pO2 (83-108) mmHg ABG HCO3 (21-25) mmol/L ABG O2 Saturation (94-97) % Chloride (98-107) mmol/L Carbon Dioxide (22-30) mmol/L BUN (9-20) mg/dL Creatinine (0.66-1.25) mg/dL Glucose (74-99) mg/dL POC Glucose (mg/dL) 157 H (75-99) mg/dL Calcium (8.4-10.2) mg/dL Lactate Dehydrogenase (313-618) U/L C-Reactive Protein (<1.0) mg/dL Total Protein (6.3-8.2) g/dL Albumin (3.5-5.0) g/dL
[2021-05-09 11:53] LABS: Glucose,Whole Blood 134 mg/dL (75-99)
--- NOTE | 2021-05-09 11:59 | XR ---
EXAMINATION TYPE: XR chest 1V portable DATE OF EXAM: 05/09/2021 COMPARISON: 05/09/2021 HISTORY: Shortness of breath TECHNIQUE: Single frontal view of the chest is obtained. FINDINGS: Diffuse subcutaneous emphysema with findings compatible with pneumomediastinum. Bilateral infiltrates are again noted with tiny effusion. No sizable pneumothorax. Findings are stable from rock or exam. IMPRESSION: 1. Pneumomediastinum with diffuse subcutaneous emphysema involving the soft tissues of the neck. Bila teral infiltrates stable.
[2021-05-09 12:23] LABS: Magnesium 2.1 mg/dL (1.6-2.3); Phosphorus 3.4 mg/dL (2.5-4.5)
--- NOTE | 2021-05-09 13:02 | P.PN ---
Subjective Progress Note Date: 05/09/21 Principal diagnosis: Acute hypoxic failure secondary to acute COVID-19 pneumonia. 65-year-old male patient transferred from [facility] because of a COVID-19 related pneumonia. The patient became symptomatic approximately 6 days ago. He has a son at home was also infected with COVID-19. He developed tiredness, fatigue, fever, increased dyspnea cough and his condition progressively got worse and for that reason he ended up coming to [facility] and following that he got cee sferred to us for further evaluation and treatment. Note that he was tested positive on 04/26/2021. He has been receiving Decadron for the past 5-6 days. He did not see any significant improvement. His condition was progressively getting worse. I saw this patient in intensive care unit. After being on the regular oxygen, he was placed on high flow oxygen 6 L with an FiO2 of 90% to bring his saturation above 90%. Chest x-ray showing diffuse bilateral pulmonary infiltrates mainly involving the lower lobes. White cell count was at 4.8. His hemoglobin was at 13.9. Glucose was 673. LDH level was 1284, CRP level was 17.4, his d-dimer was at 1.23. He has chronic kidney disease along with diabetes and hypertension. He has a BUN of 72 coronary creatinine of 2.97. His blood sugar was above 600 and he was started on a insulin drip for blood sugar control which is currently running at 10 units an hour. He is also on normal saline at rate of 200 mL an hour. He is lethargic. Is responsive his communicating. No focal neurological deficits. No other complaints otherwise for now. He is on Decadron 6 mg daily. He is on also on Lovenox 40 mg subcu daily. On 05/06/2021 patient seen in follow-up. He is on BiPAP at 14 and 6 and FiO2 of 100%, with a pulse ox of 94%, he is currently on Precedex at 0.4 mics per kilo per minute. Patient was started on Precedex infusion for agitation, and restlessness, trying to remove his BiPAP mask and get up unassisted. He still remains on insulin infusion at 13 units per hour, he continues on steroid scale insulin infusion protocol. His maintenance IV fluids are D5 half-normal saline of potassium chloride at a rate of 150 ML per hour, his oral intake has been very diminished related to poor oxygenation and been BiPAP dependent. Yesterday he was able to get some lunch, but no dinner because of worsening oxygenation. Today's blood gas was reviewed showing pO2 of 61, pCO2 of 31, and pH of 7.49, and this was done on BiPAP support 14/6 and 100%. Today's labs have been reviewed, white blood cell count is 8.0, hemoglobin is 13.4, platelet count is 474, d-dimer has trended up to 3.6, sodium is 142, potassium 3.6, chloride is 112, CO2 is 22, BUN is 54, and creatinine is 1.78, close this morning is 208, LDH was yesterday at 1284, CRP is 17.4. Patient remains on Decadron at 6 mg IV push twice daily, and his Lovenox dose is 40 mg daily. Today's chest x-ray shows bilateral infiltrates and pleural effusion, diffuse interstitial edema, relatively stable in appearance compared to yesterday. 05/07/2021, the patient is still hanging in there and his still BiPAP dependent. A brief trial of taking the patient off the BiPAP failed as within 5 minutes, the patient desaturated while being in the 100% nonrebreather facemask and he had to be placed on BiPAP again which is currently running at 14/6 cm of water with an FiO2 of 80 %. His generated tidal volume is in the order of 700 mL and his respiratory rate is in the mid 20s. He seems to be anxious and he is complaining of generalized body aches. Otherwise is able to tolerate the BiPAP well and one comfortable, he does quite well in his current pulse ox is 97%. He remains on Precedex which is currently running at 0.7 mcg/kg per minute. The dose being titrated based on his agitation level and restlessness. He is currently very calm and comfortable. I noted the blood gases from this morning. The numbers are essentially unchanged with a pH of 7.52 and a pCO2 of 25. As far as the pO2, it is a 56, nevertheless on the monitor, is pulse oxing 97%. His chest x-ray is showing diffuse but the pulmonary infiltrates, remains unchanged. He remains on Decadron 6 mg IV every 12 hours. Blood sugars are elevated and the blood sugar control is improved and is currently in the 150-180 range. He is on insulin drip running at 8 units an hour. His oral intake is minimal at this point in time. In terms of ongoing COVID-19 pneumonia treatment, he remains on Decadron, he received Tocilizumab. Resume at and the patient's inflammatory markers today shows a LDH level of 1630 and his d-dimer is up to 23.. He is on IV fluids in the form of normal saline at rate of 75 mL an hour. His urine output is adequate. In terms of his renal function, the patient's creatinine is down to 1.52 with a BUN of 41. No other significant events otherwise for now. Unable to prone the patient because of increased anxiety and BiPAP dependent. 2020, the patient is being seen for a follow-up in the intensive care unit. This is a case of COVID-19 related pneumonia with hypoxic respiratory failure. The patient was on BiPAP earlier yesterday. During the day, he was switched to high flow oxygen nasal cannula at 60 L with an FiO2 of 90% and 100% nonrebreather facemask. He was able to tolerate that throughout the day. During the course of his treatment, he was noted to have some puffiness of his face and clearly was developing subcutaneous emphysema along the right neck and upper shoulder area. The chest x-ray confirmed that. Furthermore, the chest x- ray from today showing some normal mediastinum on the left. There is no evidence of any pneumothorax. Earlier this morning at around 9 AM, the patient reported that he cannot breathe. He had to be placed back on BiPAP at a pressure of 14/6 cm of water and FiO2 was brought up to 100%. Chest x-ray still showing diffuse bilaterally pulmonary infiltrates with lower lobe predominance and there is evidence of subcutaneous emphysema in the right upper neck area and the pneumomediastinum. Blood gases from yesterday showed a pH of 7.52 with a pCO2 of 25 and pO2 of 66 and this was done and 80% BiPAP. While on the BiPAP, is able to generate tidal volumes up to 80,000. Nevertheless, he is tachypneic and his rate is in the high 30s. He is afebrile. He was complaining of some numbness affecting his right upper extremity. Arterial line was removed. He remains on Lovenox 0.5 mg per KG every 12 hours. This was increased based on elevated d-dimer. Inflammatory markers from today shows further increase in the d-dimer up to 33. The LDH is on the rise at 1755 and a CRP level is at 3.3. The patient is hemodynamically stable. The patient remains on Precedex running at 0.6 mcg/kg per minute. He is awake and alert and following commands and answering questions. He is lethargic. His oral intake is minimal. He is only drinking liquids. He refuses s to take pills. Refuses to take meds for now, the patient is also off the insulin drip and currently is on Levemir 40 units and vascular coverage. In addition to that the patient is taking NovoLog 5 units 4 times a day. His blood work shows his renal function is impaired is improving and creatinine is down to 1.4. The patient remains on normal saline which is running at 75 mL an hour.. Lethargic. He is weak. He is quite debilitated. The patient was reevaluated today on 05/09/2021, remains in the ICU. Remains on BiPAP 21/03 on 100% FiO2. ABG this morning showed a pO2 of 54 pCO2 25 pH of 7.50 remains on heparin drip because of his significantly elevated d-dimer. Remains on Precedex. And he remains on IV fluid in the form of D5 4 5 at 75 mL per hour. Patient received COVID-19 cocktail, he also received actemra, and he is on Decadron 20 mg IV piggyback daily. His pulmonary status is rather extremely marginal, surprisingly the patient is not in distress to justify intubating the patient. He seems to be very comfortable although his pO2 is very marginal. Chest x-ray continues to show bilateral infiltrates. Not much of a meter changes records clerk the last couple of days ABC is relatively normal d-dimer today is 29.18. Electrolytes are slightly abnormal with bicarb of 18 BUN is 57 creatinine 1.39. Improving over the last couple of days Objective - Vital Signs Vital signs: Vital Signs Temp 97.9 F 05/09/21 12:00 Pulse 79 05/09/21 12:00 Resp 33 H 05/09/21 12:00 BP 145/119 05/09/21 12:00 Pulse Ox 92 L 05/09/21 12:00 Intake & Output 05/08/21 05/09/21 05/09/21 18:59 06:59 18:59 Intake Total 2232.881 7307.119 595.109 Output Total 1186 1080 475 Balance 112.428 557.119 120.109 Weight 99.7 kg Intake: IV 900 900 450 Sodium Chloride 0.45% 1, 525 900 450 000 ml @ 75 mls/hr IV . [id number] FILI Rx#:[id number] Sodium Chloride 0.9% 1, 375 000 ml @ 75 mls/hr IV . [id number] FILI Rx#:[id number] Intake, IV Titration 158.428 197.119 145.109 Amount Dexmedetomidine/0.9% NaCl 100.000 197.119 (Pmx) 400 mcg In Empty Bag 1 bag @ Titrate IV . Q0M FILI Rx#:[id number] Heparin Sod,Pork in 0.45% 58.428 145.109 NaCl 25,000 unit In 0.45 % NaCl 1 250ml.bag @ 9.8 UNITS/KG/HR 10.045 mls/hr IV .Q24H FILI Rx#: [id number] Oral 240 540 Output: Urine 1186 1080 475 Other: Voiding Method Indwelling Catheter Indwelling Catheter Indwelling Catheter ABP, PAP, CO, CI - Last Documented Arterial Blood Pressure 110/74 - Exam Physical Exam: Revealed a 65-year-old white male in no distress, on BiPAP. Head: Atraumatic, normocephalic. HEENT:[Neck is supple.] [No neck masses.] [No thyromegaly.] [No JVD.] Chest: [Symmetrical chest expansion crackles at the bases. Cardiac Exam: [Normal S1 and S2, no S3 gallop, no murmur.] Abdomen: [Soft, nontender, no megaly, no rebound, no guarding, normal bowel sounds.] Extremities: [No clubbing, no edema, no cyanosis.] Neurological Exam: [No focal neurologic deficit.] Alert and oriented 3. Psychiatric: Normal mood affect and normal mental status examination. Skin: No rashes. - Labs CBC & Chem 7: 05/09/21 03:17 05/09/21 03:17 Labs: Abnormal Lab Results - Last 24 Hours (Table) 05/08/21 05/08/21 05/08/21 Range/Units 16:13 17:57 22:26 Lymphocytes # (1.0-4.8) k/uL PT (9.0-12.0) sec INR (<1.2) APTT 68.2 H 47.1 H (22.0-30.0) sec D-Dimer (<0.60) mg/L FEU ABG pH (7.35-7.45) ABG pCO2 (35-45) mmHg ABG pO2 (83-108) mmHg ABG HCO3 (21-25) mmol/L ABG O2 Saturation (94-97) % Chloride (98-107) mmol/L Carbon Dioxide (22-30) mmol/L BUN (9-20) mg/dL Creatinine (0.66-1.25) mg/dL Glucose (74-99) mg/dL POC Glucose (mg/dL) 191 H (75-99) mg/dL Calcium (8.4-10.2) mg/dL Lactate Dehydrogenase (313-618) U/L C-Reactive Protein (<1.0) mg/dL Total Protein (6.3-8.2) g/dL Albumin (3.5-5.0) g/dL 05/09/21 05/09/21 05/09/21 Range/Units 00:15 01:58 03:17 Lymphocytes # 0.4 L (1.0-4.8) k/uL PT (9.0-12.0) sec INR (<1.2) APTT (22.0-30.0) sec D-Dimer (<0.60) mg/L FEU ABG pH 7.50 H (7.35-7.45) ABG pCO2 25 L (35-45) mmHg ABG pO2 54 L* (83-108) mmHg ABG HCO3 20 L (21-25) mmol/L ABG O2 Saturation 88.8 L (94-97) % Chloride (98-107) mmol/L Carbon Dioxide (22-30) mmol/L BUN (9-20) mg/dL Creatinine (0.66-1.25) mg/dL Glucose (74-99) mg/dL POC Glucose (mg/dL) 174 H (75-99) mg/dL Calcium (8.4-10.2) mg/dL Lactate Dehydrogenase (313-618) U/L C-Reactive Protein (<1.0) mg/dL Total Protein (6.3-8.2) g/dL Albumin (3.5-5.0) g/dL 05/09/21 05/09/21 05/09/21 Range/Units 03:17 03:17 05:09 Lymphocytes # (1.0-4.8) k/uL PT 14.4 H (9.0-12.0) sec INR 1.4 H (<1.2) APTT (22.0-30.0) sec D-Dimer 29.18 H (<0.60) mg/L FEU ABG pH (7.35-7.45) ABG pCO2 (35-45) mmHg ABG pO2 (83-108) mmHg ABG HCO3 (21-25) mmol/L ABG O2 Saturation (94-97) % Chloride 116 H (98-107) mmol/L Carbon Dioxide 18 L (22-30) mmol/L BUN 37 H (9-20) mg/dL Creatinine 1.39 H (0.66-1.25) mg/dL Glucose 175 H (74-99) mg/dL POC Glucose (mg/dL) 157 H (75-99) mg/dL Calcium 8.0 L (8.4-10.2) mg/dL Lactate Dehydrogenase 2052 H (313-618) U/L C-Reactive Protein 2.3 H (<1.0) mg/dL Total Protein 4.9 L (6.3-8.2) g/dL Albumin 2.2 L (3.5-5.0) g/dL 05/09/21 Range/Units 11:51 Lymphocytes # (1.0-4.8) k/uL PT (9.0-12.0) sec INR (<1.2) APTT (22.0-30.0) sec D-Dimer (<0.60) mg/L FEU ABG pH (7.35-7.45) ABG pCO2 (35-45) mmHg ABG pO2 (83-108) mmHg ABG HCO3 (21-25) mmol/L ABG O2 Saturation (94-97) % Chloride (98-107) mmol/L Carbon Dioxide (22-30) mmol/L BUN (9-20) mg/dL Creatinine (0.66-1.25) mg/dL Glucose (74-99) mg/dL POC Glucose (mg/dL) 134 H (75-99) mg/dL Calcium (8.4-10.2) mg/dL Lactate Dehydrogenase (313-618) U/L C-Reactive Protein (<1.0) mg/dL Total Protein (6.3-8.2) g/dL Albumin (3.5-5.0) g/dL Assessment and Plan Assessment: Impression: Acute hypoxic crit 40 failure secondary to acute COVID-19 pneumonia Acute pneumomediastinum, complication of COVID-19 infection/pneumonia Steroids induced hyperglycemia, on insulin. Acute on chronic kidney disease patient may have history of diabetic nephropathy. Type 2 diabetes. Benign essential hypertension. Elevated inflammatory markers secondary to COVID-19 pneumonia. Elevated d-dimer, possibility of underlying thromboembolic disease is not entirely ruled out, hence we'll recommending that he remains on heparin. Subcutaneous emphysema in the neck secondary to pneumomediastinum, secondary to COVID-19 pneumonia. Recommendation: Continue COVID-19 cocktail. Continue BiPAP. Continue Precedex. Continue heparin. Continue Decadron. Continue IV fluids. Consider starting the patient on TPN since the patient has not been eating for the last few days, and it is impossible to do enteral feeding on this patient at this point with BiPAP, patient is extremely BiPAP dependent. Consider intubation if his condition gets any worse. Prognosis remains extremely poor and guarded, and condition is critical. Critical care time is over 30 minutes. Time with Patient: Greater than 30
[2021-05-09 18:01] LABS: Glucose,Whole Blood 127 mg/dL (75-99)
[2021-05-09 21:36] LABS: Glucose,Whole Blood 143 mg/dL (75-99)
[2021-05-09] MEDS: MELATONIN 5 MG TABLET PO SCH (21:51)
[2021-05-09] MEDS: ATORVASTATIN 20 MG TAB PO SCH (21:51)
[2021-05-10] LABS: Glucose,Whole Blood 156 mg/dL (75-99)
[2021-05-10] MEDS: INSULIN ASPART (NovoLOG) 100 UNIT/ML VIAL SQ SCH ×4 (00:53→07:14)
[2021-05-10] MEDS: MORPHINE SULFATE 2 MG/ML SYRINGE IVP PRN ×2 (01:17→08:18)
[2021-05-10] MEDS: DEXMEDETOMIDINE/0.9% NACL(PMX) 400 MCG in EMPTY BAG 1 BAG IV SCH (02:29)
[2021-05-10 06:36] LABS: HCT 44.2 % (39.0-53.0); HGB 14.6 gm/dL (13.0-17.5); MCH 29.9 pg (25.0-35.0); MCV 90.5 fL (80.0-100.0); Mean Platelet Volume 8.5; Platelet Count 361 k/uL (150-450); RBC 4.89 m/uL (4.30-5.90); RDW 14.7 % (11.5-15.5); WBC 13.3 k/uL (3.8-10.6)
[2021-05-10 06:58] LABS: Partial Thromboplastin Time 51.4 sec (22.0-30.0)
[2021-05-10 06:59] LABS: Magnesium 2.1 mg/dL (1.6-2.3); Phosphorus 3.6 mg/dL (2.5-4.5)
[2021-05-10 07:01] LABS: Albumin 2.4 g/dL (3.5-5.0); C Reactive Protein 1.7 mg/dL (<1.0); Calcium 7.8 mg/dL (8.4-10.2); Potassium 3.8 mmol/L (3.5-5.1); Total Bilirubin 0.9 mg/dL (0.2-1.3); Total Protein 5.1 g/dL (6.3-8.2)
[2021-05-10] MEDS: SODIUM CHLORIDE 0.45% 1,000 ML IV SCH (07:09)
[2021-05-10 07:15] LABS: Ionized Calcium 4.9 mg/dL (4.5-5.3)
[2021-05-10 07:23] LABS: Glucose,Whole Blood 82 mg/dL (75-99)
[2021-05-10] MEDS: ALBUTEROL HFA INHALER INHALATION SCH ×3 (07:40→15:24)
[2021-05-10] MEDS: CHOLECALCIFEROL 25 MCG (1000 IU) TABLET PO SCH (08:17)
[2021-05-10] MEDS: ZINC SULFATE 220 MG CAP PO SCH (08:17)
[2021-05-10] MEDS: FENOFIBRATE 160 MG TAB PO SCH (08:17)
[2021-05-10] MEDS: ASCORBIC ACID 500 MG TAB PO SCH (08:17)
[2021-05-10] MEDS: METOPROLOL TARTRATE 50 MG TAB PO SCH (08:17)
[2021-05-10] MEDS: PANTOPRAZOLE 40 MG/10 ML VIAL IVP SCH (08:19)
[2021-05-10] MEDS ORDERED: CLEVIDIPINE BUTYRATE 25 MG in EMPTY BAG 1 BAG IV SCH (09:00)
--- NOTE | 2021-05-10 09:01 | CDI ---
Documentation Clarification Form Date: 05/10/2021 08:46:51 AM From: Leah Mcfarland CCS, CCDS Admit Date: 05/04/2021 10:55:00 PM Patient Name: Eddy Isaac Visit Number: [id number] Discharge Date: ATTENTION: The Clinical Documentation Specialists (CDI) and [facility] Coding Staff appreciate your assistance in clarifying documentation. Please respond to the clarification below the line at the bottom and electronically sign. The CDI & [facility] Coding staff will review the response and follow-up if needed. Please note: Queries are made part of the Legal Health Record. If you have any questions, please contact the author of this message via ITS. Dr. Barby Acosta or Dr. Rubén Lewis: Chronic Kidney Disease is documented in the 05/05 H/P and subsequent Attending Physician Progress Notes and in the 05/05 Pulmonary/Critical Care Consult and subsequent Progress Notes. Additional clarification regarding the stage of CKD is requested. History/Risk Factors per the 05/05 H/P: Hypertension, Hyperlipidemia, CKD and Diabetes. Clinical Indicators: Presented to the ED on 05/04 as a transfer from [facility] with positive COVID 19, severely hypoxic, treated 5-6 days for COVID w/Decadron, Also Hyperglycemic secondary to steroid use. ED Clinical Impression: Acute pulmonary edema, Pneumonia due to COVID-19 virus, Hyperglycemia & Hypoxia. 05/05 LAB: Na 132, K 5.2, CO2 11, Glucose 657 05/05 BUN: 66, 69, 71. 05/06: 54. /: 41. 8/1: 40. 8/2: 37. 8/3: 36 05/05 Creatinine: 2.95, 3.00, 2.08. 05/06: 1.78. 05/07: 1.52. 8/1: 1.45. 8/2: 1.39. 8/3: 1.45 05/05 GFR: 21, 27. 05/06: 39. 7/31: 47. 8/1: 50. 8/2: 53. 8/3: 50 Historical GFR: n/a Treatment 05/05: IV Na Cl 1,000 mls @ 999 mls/hr q1H, INH Ventolin, IV Na Cl 1,000 mls @ 130 mls/hr q7H, IV Decadron 4 mg q6H, Insulin sq TID, IV Insulin q10H, IV Remdesivir x1, po Hexadrol, Lovenox sq, po Orazinc, IV Actemra, IV Na Bicarb x1, IV KCL, IV Precedex, IV Apresoline. Nephrology is not consulted. Please clarify the stage of the CKD, if known: [ ] CKD Stage 3 (GFR 30-59) [ ] CKD Stage 3a (GFR 45-59) [ ] CKD Stage 3b (GFR 30-44) [ ] CKD Stage 4 (GFR 15-29) [ ] Other, please specify [ X ] Unable to determine (Template Last revised: November 2020) MTDD
--- NOTE | 2021-05-10 09:20 | CDI ---
Documentation Clarification Form Date: 05/10/2021 09:06:00 AM From: Leah Mcfarland CCS, CCDS Admit Date: 05/04/2021 10:55:00 PM Patient Name: Eddy Isaac Visit Number: [id number] Discharge Date: ATTENTION: The Clinical Documentation Specialists (CDI) and [facility] Coding Staff appreciate your assistance in clarifying documentation. Please respond to the clarification below the line at the bottom and electronically sign. The CDI & [facility] Coding staff will review the response and follow-up if needed. Please note: Queries are made part of the Legal Health Record. If you have any questions, please contact the author of this message via ITS. Dr. Barby Acosta or Dr. Rubén Lewis: The patient presented on 05/04 with the following clinical indicators: Hypoxia, Fever and chills, diagnosed with COVID 19 Pneumonia at an outside hospital. Diagnosed with Acute Hypoxic Respiratory Failure and Toxic Metabolic Encephalopathy on 05/06. Diagnosed with ARDS on 05/09. Additional clarification regarding the etiology/cause of the clinical indicators is requested. History/Risk Factors per the 05/05 H/P: Hypertension, Hyperlipidemia, CKD and Diabetes. Clinical Indicators: Presented to the ED on 05/04 as a transfer from [facility] with positive COVID 19, severely hypoxic, treated 5-6 days for COVID w/Decadron, Also Hyperglycemic secondary to steroid use. ED Clinical Impression: Acute pulmonary edema, Pneumonia due to COVID-19 virus, Hyperglycemia & Hypoxia. 05/04 VS: T 98.1, P 86, R 20-22, BP 122/77, PO 82 60% high flow O2 05/06 VS: T 96.0, P 42 - 57, R 23 - 26, BP 149/74, PO 93 100% BiPAP 05/05 LAB: WBC 4.8, Pl Ct 477, Neut 7.9, Lymph 0.5, D Diner 1.23, Na 132, K 5.2, CO2 11, BUN 66, Cr 2.95, Glucose 657, Lactic Acid 1.5, Phos 5.4, Mag 2.6, Ferritin 746.0, Lactate Dehyd 1284, CRP 17.4, Total Protein 5.8, Albumin 3.1 05/05 ABG pH 7.40, pCO2 25, pO2 48, HCO3 16, Total CO2 17, O2 Sat 83.0. VBG pH 7.30, pCO2 26, HCO3 12. 8/3 LAB: WBC 13.3, APTT 51.4, D Dimer 28.93, CO2 21, BUN 36, Cr 1.45, Calcium 7.8, AST 73, Alk Phos 130, Lactate Dehyd 2445, CRP 1.7, Total Protein 5.1, Albumin 2.4 Treatment 05/05: IV Na Cl 1,000 mls @ 999 mls/hr q1H, INH Ventolin, IV Na Cl 1,000 mls @ 130 mls/hr q7H, IV Decadron 4 mg q6H, Insulin sq TID, IV Insulin q10H, IV Remdesivir x1, po Hexadrol, Lovenox sq, po Orazinc, IV Actemra, IV Na Bicarb x1, IV KCL, IV Precedex, IV Apresoline. 05/06 - 05/10: Above treatment continued. In your professional opinion, please clarify if these findings signify one of the following conditions: [ ] Sepsis POA [ ] Sepsis, Not POA [ ] Severe Sepsis with organ failure [ ] Other, please specify [ X] Unable to determine (Template Last Reviewed: November 2020) MTDD
--- NOTE | 2021-05-10 10:03 | XR ---
EXAMINATION TYPE: XR chest 1V portable DATE OF EXAM: 05/10/2021 COMPARISON: NONE HISTORY: FLORES TECHNIQUE: Single frontal view of the chest is obtained. FINDINGS: Diffuse subcutaneous emphysema with findings compatible with pneumomediastinum. Bilateral infiltrates are again noted with tiny effusion. No sizable pneumothorax. Findings are stable from rock or exam. IMPRESSION: 1. Pneumomediastinum with diffuse subcutaneous emphysema involving the soft tissues of the neck. Bila teral infiltrates stable.
[2021-05-10] MEDS ORDERED: propofoL 100 ML IV ONE (10:10)
[2021-05-10] MEDS ORDERED: LIDOCAINE 1% INJ 10MG/ML (20 ML MDV) ONE (10:48)
[2021-05-10] MEDS ORDERED: SODIUM BICARB 8.4% 50 ML SYR (1 MEQ/ML) ONE ×2 (10:55→12:38)
[2021-05-10] MEDS ORDERED: EPINEPHrine 10 ML SYRINGE (0.1 MG/ML) ONE (10:55)
[2021-05-10] MEDS ORDERED: CISATRACURIUM 2 MG/ML 5 ML VIAL IV ONE (11:16)
--- NOTE | 2021-05-10 11:24 | P.PN ---
Subjective Progress Note Date: 05/10/21 Principal diagnosis: Acute hypoxic failure secondary to acute COVID-19 pneumonia. 65-year-old male patient transferred from [facility] because of a COVID-19 related pneumonia. The patient became symptomatic approximately 6 days ago. He has a son at home was also infected with COVID-19. He developed tiredness, fatigue, fever, increased dyspnea cough and his condition progressively got worse and for that reason he ended up coming to [facility] and following that he got cee sferred to us for further evaluation and treatment. Note that he was tested positive on 04/26/2021. He has been receiving Decadron for the past 5-6 days. He did not see any significant improvement. His condition was progressively getting worse. I saw this patient in intensive care unit. After being on the regular oxygen, he was placed on high flow oxygen 6 L with an FiO2 of 90% to bring his saturation above 90%. Chest x-ray showing diffuse bilateral pulmonary infiltrates mainly involving the lower lobes. White cell count was at 4.8. His hemoglobin was at 13.9. Glucose was 673. LDH level was 1284, CRP level was 17.4, his d-dimer was at 1.23. He has chronic kidney disease along with diabetes and hypertension. He has a BUN of 72 coronary creatinine of 2.97. His blood sugar was above 600 and he was started on a insulin drip for blood sugar control which is currently running at 10 units an hour. He is also on normal saline at rate of 200 mL an hour. He is lethargic. Is responsive his communicating. No focal neurological deficits. No other complaints otherwise for now. He is on Decadron 6 mg daily. He is on also on Lovenox 40 mg subcu daily. On 05/06/2021 patient seen in follow-up. He is on BiPAP at 14 and 6 and FiO2 of 100%, with a pulse ox of 94%, he is currently on Precedex at 0.4 mics per kilo per minute. Patient was started on Precedex infusion for agitation, and restlessness, trying to remove his BiPAP mask and get up unassisted. He still remains on insulin infusion at 13 units per hour, he continues on steroid scale insulin infusion protocol. His maintenance IV fluids are D5 half-normal saline of potassium chloride at a rate of 150 ML per hour, his oral intake has been very diminished related to poor oxygenation and been BiPAP dependent. Yesterday he was able to get some lunch, but no dinner because of worsening oxygenation. Today's blood gas was reviewed showing pO2 of 61, pCO2 of 31, and pH of 7.49, and this was done on BiPAP support 14/6 and 100%. Today's labs have been reviewed, white blood cell count is 8.0, hemoglobin is 13.4, platelet count is 474, d-dimer has trended up to 3.6, sodium is 142, potassium 3.6, chloride is 112, CO2 is 22, BUN is 54, and creatinine is 1.78, close this morning is 208, LDH was yesterday at 1284, CRP is 17.4. Patient remains on Decadron at 6 mg IV push twice daily, and his Lovenox dose is 40 mg daily. Today's chest x-ray shows bilateral infiltrates and pleural effusion, diffuse interstitial edema, relatively stable in appearance compared to yesterday. 05/07/2021, the patient is still hanging in there and his still BiPAP dependent. A brief trial of taking the patient off the BiPAP failed as within 5 minutes, the patient desaturated while being in the 100% nonrebreather facemask and he had to be placed on BiPAP again which is currently running at 14/6 cm of water with an FiO2 of 80 %. His generated tidal volume is in the order of 700 mL and his respiratory rate is in the mid 20s. He seems to be anxious and he is complaining of generalized body aches. Otherwise is able to tolerate the BiPAP well and one comfortable, he does quite well in his current pulse ox is 97%. He remains on Precedex which is currently running at 0.7 mcg/kg per minute. The dose being titrated based on his agitation level and restlessness. He is currently very calm and comfortable. I noted the blood gases from this morning. The numbers are essentially unchanged with a pH of 7.52 and a pCO2 of 25. As far as the pO2, it is a 56, nevertheless on the monitor, is pulse oxing 97%. His chest x-ray is showing diffuse but the pulmonary infiltrates, remains unchanged. He remains on Decadron 6 mg IV every 12 hours. Blood sugars are elevated and the blood sugar control is improved and is currently in the 150-180 range. He is on insulin drip running at 8 units an hour. His oral intake is minimal at this point in time. In terms of ongoing COVID-19 pneumonia treatment, he remains on Decadron, he received Tocilizumab. Resume at and the patient's inflammatory markers today shows a LDH level of 1630 and his d-dimer is up to 23.. He is on IV fluids in the form of normal saline at rate of 75 mL an hour. His urine output is adequate. In terms of his renal function, the patient's creatinine is down to 1.52 with a BUN of 41. No other significant events otherwise for now. Unable to prone the patient because of increased anxiety and BiPAP dependent. 2020, the patient is being seen for a follow-up in the intensive care unit. This is a case of COVID-19 related pneumonia with hypoxic respiratory failure. The patient was on BiPAP earlier yesterday. During the day, he was switched to high flow oxygen nasal cannula at 60 L with an FiO2 of 90% and 100% nonrebreather facemask. He was able to tolerate that throughout the day. During the course of his treatment, he was noted to have some puffiness of his face and clearly was developing subcutaneous emphysema along the right neck and upper shoulder area. The chest x-ray confirmed that. Furthermore, the chest x- ray from today showing some normal mediastinum on the left. There is no evidence of any pneumothorax. Earlier this morning at around 9 AM, the patient reported that he cannot breathe. He had to be placed back on BiPAP at a pressure of 14/6 cm of water and FiO2 was brought up to 100%. Chest x-ray still showing diffuse bilaterally pulmonary infiltrates with lower lobe predominance and there is evidence of subcutaneous emphysema in the right upper neck area and the pneumomediastinum. Blood gases from yesterday showed a pH of 7.52 with a pCO2 of 25 and pO2 of 66 and this was done and 80% BiPAP. While on the BiPAP, is able to generate tidal volumes up to 80,000. Nevertheless, he is tachypneic and his rate is in the high 30s. He is afebrile. He was complaining of some numbness affecting his right upper extremity. Arterial line was removed. He remains on Lovenox 0.5 mg per KG every 12 hours. This was increased based on elevated d-dimer. Inflammatory markers from today shows further increase in the d-dimer up to 33. The LDH is on the rise at 1755 and a CRP level is at 3.3. The patient is hemodynamically stable. The patient remains on Precedex running at 0.6 mcg/kg per minute. He is awake and alert and following commands and answering questions. He is lethargic. His oral intake is minimal. He is only drinking liquids. He refuses s to take pills. Refuses to take meds for now, the patient is also off the insulin drip and currently is on Levemir 40 units and vascular coverage. In addition to that the patient is taking NovoLog 5 units 4 times a day. His blood work shows his renal function is impaired is improving and creatinine is down to 1.4. The patient remains on normal saline which is running at 75 mL an hour.. Lethargic. He is weak. He is quite debilitated. The patient was reevaluated today on 05/09/2021, remains in the ICU. Remains on BiPAP 14/ on 100% FiO2. ABG this morning showed a pO2 of 54 pCO2 25 pH of 7.50 remains on heparin drip because of his significantly elevated d-dimer. Remains on Precedex. And he remains on IV fluid in the form of D5 4 5 at 75 mL per hour. Patient received COVID-19 cocktail, he also received actemra, and he is on Decadron 20 mg IV piggyback daily. His pulmonary status is rather extremely marginal, surprisingly the patient is not in distress to justify intubating the patient. He seems to be very comfortable although his pO2 is very marginal. Chest x-ray continues to show bilateral infiltrates. Not much of a chart changer the last couple of days ABC is relatively normal d-dimer today is 29.18. Electrolytes are slightly abnormal with bicarb of 18 BUN is 57 creatinine 1.39. Improving over the last couple of days Reevaluated today on 05/10/2021, patient remains in the ICU, remains on BiPAP, 100% FiO2, his overall clinical status is marginal at best. Patient is very close to be considered for intubation and mechanical ventilation, I saw the patient this morning, and 2 hours after my evaluation, I was notified about his saturation done in the low 70s, hence I recommended immediate intubation of the patient. Chest x-ray continues to show bilateral infiltrates, shows some subcu emphysema in the neck area, and I'm suspecting some pneumomediastinum. No evidence of pneumothorax noted. WBC count is 13.3 hemoglobin is 14.6. D-dimer is 28.electrolytes are normal renal profile showed a BUN of 56 creatinine 1.45., Slightly worsening. LDH is up to 2445, C-reactive protein is 1.7.. LDH is much worse compared to the last few days. Indicating worsening inflammatory process. Surprisingly patient was comfortable on BiPAP, but since his O2 saturation dropped significantly, patient had to be intubated Objective - Vital Signs Vital signs: Vital Signs Temp 97.5 F L 05/10/21 04:00 Pulse 66 05/10/21 07:00 Resp 28 H 05/10/21 07:00 BP 161/79 05/10/21 07:00 Pulse Ox 84 L 05/10/21 07:00 Intake & Output 05/09/21 05/10/21 05/10/21 18:59 06:59 18:59 Intake Total 0846.877 7492.397 241.297 Output Total 815 785 45 Balance 251.818 326.397 196.297 Weight 99.7 kg 101 kg Intake: IV 825 900 75 Sodium Chloride 0.45% 1, 825 900 75 000 ml @ 75 mls/hr IV . [id number] FILI Rx#:[id number] Intake, IV Titration 241.818 211.397 166.297 Amount Dexmedetomidine/0.9% NaCl 96.709 100 100 (Pmx) 400 mcg In Empty Bag 1 bag @ Titrate IV . Q0M FILI Rx#:[id number] Heparin Sod,Pork in 0.45% 145.109 111.397 66.297 NaCl 25,000 unit In 0.45 % NaCl 1 250ml.bag @ 9.8 UNITS/KG/HR 10.045 mls/hr IV .Q24H FILI Rx#: [id number] Output: Urine 815 785 45 Other: Voiding Method Indwelling Catheter Indwelling Catheter Indwelling Catheter ABP, PAP, CO, CI - Last Documented Arterial Blood Pressure 110/74 - Exam Physical Exam: Revealed a 65-year-old white on BiPAP 100% 14/6. In mild distress. Head: Atraumatic, normocephalic. HEENT:[Neck is supple.] [No neck masses.] [No thyromegaly.] [No JVD.] Chest: [Symmetrical chest expansion crackles at the bases. Cardiac Exam: [Normal S1 and S2, no S3 gallop, no murmur.] Abdomen: [Soft, nontender, no megaly, no rebound, no guarding, normal bowel sounds.] Extremities: [No clubbing, no edema, no cyanosis.] Neurological Exam: [No focal neurologic deficit.] Alert and oriented 3. Psychiatric: Normal mood affect and normal mental status examination. Skin: No rashes. - Labs CBC & Chem 7: 05/10/21 06:21 05/10/21 06:21 Labs: Abnormal Lab Results - Last 24 Hours (Table) 05/09/21 05/09/21 05/09/21 Range/Units 03:17 11:51 17:59 WBC (3.8-10.6) k/uL APTT (22.0-30.0) sec D-Dimer (<0.60) mg/L FEU Chloride (98-107) mmol/L Carbon Dioxide (22-30) mmol/L BUN (9-20) mg/dL Creatinine (0.66-1.25) mg/dL Glucose (74-99) mg/dL POC Glucose (mg/dL) 134 H 127 H (75-99) mg/dL Calcium (8.4-10.2) mg/dL AST (17-59) U/L Alkaline Phosphatase (38-126) U/L Lactate Dehydrogenase (313-618) U/L C-Reactive Protein (<1.0) mg/dL Total Protein (6.3-8.2) g/dL Albumin (3.5-5.0) g/dL Triglycerides 318.0 H (0.0-149.0) mg/dL 05/09/21 05/09/21 05/09/21 Range/Units 21:24 22:46 23:59 WBC (3.8-10.6) k/uL APTT 39.8 H (22.0-30.0) sec D-Dimer (<0.60) mg/L FEU Chloride (98-107) mmol/L Carbon Dioxide (22-30) mmol/L BUN (9-20) mg/dL Creatinine (0.66-1.25) mg/dL Glucose (74-99) mg/dL POC Glucose (mg/dL) 143 H 156 H (75-99) mg/dL Calcium (8.4-10.2) mg/dL AST (17-59) U/L Alkaline Phosphatase (38-126) U/L Lactate Dehydrogenase (313-618) U/L C-Reactive Protein (<1.0) mg/dL Total Protein (6.3-8.2) g/dL Albumin (3.5-5.0) g/dL Triglycerides (0.0-149.0) mg/dL 05/10/21 05/10/21 05/10/21 Range/Units 06:21 06:21 06:21 WBC 13.3 H (3.8-10.6) k/uL APTT 51.4 H (22.0-30.0) sec D-Dimer 28.93 H (<0.60) mg/L FEU Chloride 112 H (98-107) mmol/L Carbon Dioxide 21 L (22-30) mmol/L BUN 36 H (9-20) mg/dL Creatinine 1.45 H (0.66-1.25) mg/dL Glucose 105 H (74-99) mg/dL POC Glucose (mg/dL) (75-99) mg/dL Calcium 7.8 L (8.4-10.2) mg/dL AST 73 H (17-59) U/L Alkaline Phosphatase 130 H (38-126) U/L Lactate Dehydrogenase 2445 H (313-618) U/L C-Reactive Protein 1.7 H (<1.0) mg/dL Total Protein 5.1 L (6.3-8.2) g/dL Albumin 2.4 L (3.5-5.0) g/dL Triglycerides (0.0-149.0) mg/dL Assessment and Plan Assessment: Impression: Acute hypoxic respiratory failure secondary to acute COVID-19 pneumonia Acute pneumomediastinum, complication of COVID-19 infection/pneumonia Steroids induced hyperglycemia, on insulin. Acute on chronic kidney disease patient may have history of diabetic nephropathy. Type 2 diabetes. Benign essential hypertension. Elevated inflammatory markers secondary to COVID-19 pneumonia. Elevated d-dimer, possibility of underlying thromboembolic disease is not entirely ruled out, hence we'll recommending that he remains on heparin. Subcutaneous emphysema in the neck secondary to pneumomediastinum, secondary to COVID-19 pneumonia. Recommendation: Patient had to be intubated because of worsening oxygenation and worsening clinical status. Continue COVID-19 cocktail. Patient may have to be placed on paralytics, and propofol as well as fentanyl post intubation. Continue heparin. Continue Decadron. Cut down the dose to 6 mg twice a day. Continue IV fluids. Enteral feeding post intubation. Prognosis remains extremely poor and guarded, and condition is critical. Critical care time is over 30 minutes. Not including the time spent on procedures. Time with Patient: Greater than 30
[2021-05-10 11:30] LABS: ABG HCO3 16 mmol/L (21-25); ABG Oxygen Saturation 71.6 % (94-97); ABG PCO2 70 mmHg (35-45); ABG PO2 63 mmHg (83-108); ABG TCO2 18 mmol/L (19-24); Allen Test Performed? Yes
[2021-05-10] MEDS ORDERED: CISATRACURIUM 200 MG in SODIUM CHLORIDE 0.9% 180 ML IV SCH (11:30)
[2021-05-10 11:32] LABS: ABG PH 6.97 (7.35-7.45)
[2021-05-10 11:34] LABS: Glucose,Whole Blood 208 mg/dL (75-99)
[2021-05-10] MEDS: SODIUM BICARB 8.4% 50 ML SYR (1 MEQ/ML) ONE ×2 (11:40→11:58)
--- NOTE | 2021-05-10 11:42 | XR ---
EXAMINATION TYPE: XR chest 1V portable DATE OF EXAM: 05/10/2021 COMPARISON: 05/10/2021 HISTORY: ET tube placement TECHNIQUE: Single frontal view of the chest is obtained. FINDINGS: ET tube approximately 7.5 cm above jody. NG tube seen extending the abdomen. Diffuse yury ateral infiltrates with subcutaneous emphysema and evidence of pneumomediastinum. Heart prominent. Un derlying interstitial edema or pneumonitis in the differential diagnosis. IMPRESSION: 1. ET tube 7.5 cm above jody. 2. Subcutaneous emphysema, pneumomediastinum, and diffuse infiltrate stable.
--- NOTE | 2021-05-10 11:42 | XR ---
EXAMINATION TYPE: XR chest 1V portable 1034 hours DATE OF EXAM: 05/10/2021 Comparison: 05/10/2021, 0824 hours Clinical History: 65-year-old male intubated Findings: ET tube tip at the level of the medial clavicular heads. NG tube courses below the diaphragm. Heart u pper limits of normal in size. Diffuse interstitial and confluent mid and lower lung airspace opaciti es. Subcutaneous emphysema redemonstrated along the left hemithorax in base of the neck on both sides . Redemonstrated pneumomediastinum. Impression: 1. ET tube tip at the level of the medial clavicular heads. 2. Pneumomediastinum and interstitial changes, and confluent airspace disease mid and lower lungs unc hanged.
--- NOTE | 2021-05-10 11:43 | XR ---
EXAMINATION TYPE: XR chest 1V portable DATE OF EXAM: 05/10/2021 COMPARISON: 05/10/2021 HISTORY: Shortness of breath TECHNIQUE: Single frontal view of the chest is obtained. FINDINGS: ET tube approximately 6.8 cm above jody. Diffuse bilateral infiltrates with evidence of pneumomediastinum and subcutaneous MARIA GUADALUPE. No sizable pneumothorax. Heart size unchanged. IMPRESSION: 1. Diffuse bilateral infiltrates stable. 2. Pneumomediastinum and subcutaneous emphysema.
[2021-05-10 12:22] LABS: Calcium 7.9 mg/dL (8.4-10.2)
[2021-05-10 12:27] LABS: Magnesium 2.2 mg/dL (1.6-2.3); Potassium 5.1 mmol/L (3.5-5.1)
--- NOTE | 2021-05-10 12:45 | XR ---
EXAMINATION TYPE: XR chest 1V portable DATE OF EXAM: 05/10/2021 COMPARISON: 05/10/2021 HISTORY: Line placement TECHNIQUE: Single frontal view of the chest is obtained. FINDINGS: Right-sided central line seen with tip overlying the SVC. Bilateral infiltrates with subcu taneous emphysema and pneumomediastinum stable. Heart size stable. Osseous structures stable. ET and NG tube unchanged. IMPRESSION: 1. Diffuse bilateral infiltrate stable. 2. Central line appears in good position with no sizable pneumothorax. 3. Pneumomediastinum and subcutaneous emphysema stable
[2021-05-10 13:18] VITALS: BMI 31.9
[2021-05-10] MEDS ORDERED: fentaNYL (PF). 1,000 MCG in SODIUM CHLORIDE 0.9% 80 ML IV SCH (13:30)
[2021-05-10 14:18] VITALS: BP 153/93; PULSE 18; RESP 36; TEMP 98.2
--- NOTE | 2021-05-10 15:03 | PCN ---
PROCEDURE NOTE PROCEDURE PERFORMED: Placement of the left radial arterial line. PREOPERATIVE DIAGNOSES: Hypoxic respiratory failure, Covid 19 pneumonia, cardiac arrest. POSTOPERATIVE DIAGNOSIS: Hypoxic respiratory failure, Covid 19 pneumonia, cardiac arrest. ANESTHESIA: Used none deployed. PROCEDURE DETAILS: The left wrist was prepared in a sterile fashion. Drapes were applied. The left radial artery was cannulated easily. Guidewire was placed, a Cook catheter was inserted over the guidewire, and the guidewire was removed. Good blood flow, good waveform noted, no evidence of any immediate complications, line was secured using 3-0 silk sutures. MMODL / IJN: [id number] /
--- NOTE | 2021-05-10 15:03 | PCN ---
PROCEDURE NOTE OPERATIVE REPORT: Placement of a right subclavian central line, done on emergent basis. PREOPERATIVE DIAGNOSES: Acute Covid 19 pneumonia, hypoxic respiratory failure, and cardiac arrest/pulseless electrical activity. POSTOPERATIVE DIAGNOSES: Acute Covid 19 pneumonia, hypoxic respiratory failure, and cardiac arrest/pulseless electrical activity. ANESTHESIA: Anesthesia used none deployed. PROCEDURE: The patient was placed in a Trendelenburg position, the area of the right subclavian region was prepared in a sterile fashion and drapes applied. Using the infraclavicular approach, the right subclavian vein was easily cannulated, and a guidewire was placed. A triple-lumen catheter was inserted over the guidewire, and the guidewire was removed. Good blood flow noted in the 3 different ports of the triple-lumen catheter. The line was secured using 3.0 silk sutures. A chest x-ray showed adequate placement and no complications. Again, procedure was well tolerated. MMODL / IJN: [id number] /
--- NOTE | 2021-05-10 15:20 | P.DS ---
Providers Date of admission: 05/04/21 22:55 Expected date of discharge: 05/10/21 Attending physician: Kell Morales MD Consults: 05/04/21 22:54 Consult Physician Routine Consulting Provider: Liliana Sher Consult Reason/Comments: hypoxia Do you want consulting provider notified?: Yes Primary care physician: Stated None Hospital Course: Patient is a 65-year-old male with past medical history of diabetes mellitus type 2, hypertension, and dyslipidemia who initially presented to [facility] where he was diagnosed with DKA and COVID-19. He was subsequently transferred here secondary to hypoxia. He initially tested positive for Covid on April 29. In the morning of 05/05 he was hypoxic despite airvo and nonrebreather when getting up to go to the bathroom. Laboratory analysis was reviewed which showed severe DKA with a carbon dioxide of 11 and an anion gap of 23. Patient was started on an insulin drip. Pulmonary critical care was contacted and arrangements were made to admit the patient to the ICU. He is also started on Remdesivir and Toci. Overnight on 05/05 his anion gap closed and he was transitioned to non-DKA insulin drip secondary to steroid use. He ultimately required BiPAP therapy. He was transitioned to subcutaneous insulin on 05/07. He started having right hand pain and dimished blood flow. He was able to be off bipap and on airvo overnight 05/07-05/08, he did develop sub cutaneous emphysema and was found to have pneumomediastinum. He was started on a heparin gtt. he continued to require BiPap Patient was seen and evaluated by me on May 10 in the morning, patient appeared cachectic and was complaining of shortness of breath. He was maintained on BiPAP with respiratory rate in the 40s. Truck Supervisor was contacted and he recommended patient to be intubated. After intubation patient went into PEA arrest and received high quality CPR phone 1 ground and 1 time dose of epinephrine with successful return of spontaneous circulation. Repeat blood work was ordered and a 12-lead EKG showed sinus tachycardia. 10 or 15 minutes later patient was bradycardic and then went into PEA again. He received one round of high quality CPR and epinephrine with ROSC for the second time. Blood gases obtained showed evidence of hypoxia with pH of 6.97. Patient received 2 A of bicarb. His O2 sat duration was hovering between 60s and 85% on the ventilator. Patient was on 100% FiO2, PEEP of 15. 20 minutes later, patient went into cardiac arrest again with PEA requiring chest compression and one-time dose of epinephrine with successful ROSC. Throughout the process, I spoke to his sister on the phone to give her an update about his critical condition and recurrent cardiac arrest. She then spoke to his and they both decided to make the patient DO NOT RESUSCITATE. Patient eventually around 13:06. For further details about this hospitalization please refer to the electronic chart review his use of his medical problems COVID-19 pneumonia with acute hypoxic respiratory failure pneumomedistinum ARDS Toxic metabolic encephalopathy Diabetes Mellitus Acute kidney Hypertension Dyslipidemia Diabetic ketoacidosis, resolved Hyperkalemia, resolved Patient Condition at Discharge: Serious Plan - Discharge Summary New Discharge Prescriptions: No Action glyBURIDE/METFORMIN HCL [glyBURIDE/METFORMIN HCL 5-500 mg] 2 tab PO BID RX: Pioglitazone [Actos] 45 mg PO DAILY Metoprolol Tartrate [Lopressor] 100 mg PO BID sitaGLIPtin PHOSPHATE [Januvia] 100 mg PO DAILY hydroCHLOROthiazide [Hydrodiuril] 12.5 mg PO DAILY Fenofibrate Nanocrystallized [Fenofibrate] 145 mg PO DAILY Atorvastatin [Lipitor] 20 mg PO HS Discharge Medication List Atorvastatin [Lipitor] 20 mg PO HS 05/04/21 [History] Fenofibrate Nanocrystallized [Fenofibrate] 145 mg PO DAILY 05/04/21 [History] Metoprolol Tartrate [Lopressor] 100 mg PO BID 05/04/21 [History] RX: Pioglitazone [Actos] 45 mg PO DAILY 05/04/21 [History] glyBURIDE/METFORMIN HCL [glyBURIDE/METFORMIN HCL 5-500 mg] 2 tab PO BID 05/04/21 [History] hydroCHLOROthiazide [Hydrodiuril] 12.5 mg PO DAILY 05/04/21 [History] sitaGLIPtin PHOSPHATE [Januvia] 100 mg PO DAILY 05/04/21 [History] Follow up Appointment(s)/Referral(s): None,Stated [Primary Care Provider] - 1-2 days
[2021-05-10] MEDS ORDERED: DEXAMETHASONE SOD PHOSPHATE 10 MG/ML 1 ML VIAL IV SCH (21:00)
[2021-05-10] MEDS ORDERED: CHLORHEXIDINE GLUCONATE 15 ML CUP MUCOUS MEM SCH (21:00)
[2021-05-11 19:40] LABS: LD Isoenzymes 1 18 % (19-38); LD Isoenzymes 2 39 % (30-43); LD Isoenzymes 3 26 % (16-26); LD Isoenzymes 4 11 % (3-12); LD Isoenzymes 5 6 % (3-14); Lactacte Dehydrogenase(LD) ISO 399 U/L (120-250)
== END 2021-05-10 15:44 | disposition expired | DRG 208 ==
LOC: EC 21:57 → 3SCARD 22:55 → 2SICU 05-05 08:40
PROVIDERS: ADMIT Internal Medicine; ATTEND Internal Medicine
PROC: XW043E5 Introduction of Remdesivir Anti-infective into Central Vein, Percutaneous Approach, New Technology Group 5 (ICD-10-PCS; 2021-05-04)
PROC: XW033H5 Introduction of Tocilizumab into Peripheral Vein, Percutaneous Approach, New Technology Group 5 (ICD-10-PCS; 2021-05-04)
PROC: 5A09457 Assistance with Respiratory Ventilation, 24-96 Consecutive Hours, Continuous Positive Airway Pressure (ICD-10-PCS; 2021-05-05)
PROC: 05HD33Z Insertion of Infusion Device into Right Cephalic Vein, Percutaneous Approach (ICD-10-PCS; 2021-05-05)
PROC: 0BH17EZ Insertion of Endotracheal Airway into Trachea, Via Natural or Artificial Opening (ICD-10-PCS; principal; 2021-05-10)
PROC: 5A1935Z Respiratory Ventilation, Less than 24 Consecutive Hours (ICD-10-PCS; principal; 2021-05-10)
PROC: 5A0945A Assistance with Respiratory Ventilation, 24-96 Consecutive Hours, High Flow/Velocity Cannula (ICD-10-PCS; 2021-05-10)
PROC: 5A12012 Performance of Cardiac Output, Single, Manual (ICD-10-PCS; 2021-05-10)
PROC: 5A12012 Performance of Cardiac Output, Single, Manual (ICD-10-PCS; 2021-05-10)
PROC: 5A12012 Performance of Cardiac Output, Single, Manual (ICD-10-PCS; 2021-05-10)
PROC: 3E033XZ Introduction of Vasopressor into Peripheral Vein, Percutaneous Approach (ICD-10-PCS; 2021-05-10)
PROC: 03HY32Z Insertion of Monitoring Device into Upper Artery, Percutaneous Approach (ICD-10-PCS; 2021-05-10)
PROC: 4A133J1 Monitoring of Arterial Pulse, Peripheral, Percutaneous Approach (ICD-10-PCS; 2021-05-10)
PROC: 4A133B1 Monitoring of Arterial Pressure, Peripheral, Percutaneous Approach (ICD-10-PCS; 2021-05-10)
PROC: 02HV33Z Insertion of Infusion Device into Superior Vena Cava, Percutaneous Approach (ICD-10-PCS; 2021-05-10)
DX: U07.1 COVID-19 (principal); E11.10 Type 2 diabetes mellitus with ketoacidosis without coma; J12.82 Pneumonia due to coronavirus disease 2019; J80 Acute respiratory distress syndrome; G92 Toxic encephalopathy; J81.0 Acute pulmonary edema; N17.9 Acute kidney failure, unspecified; R64 Cachexia; J98.2 Interstitial emphysema; E87.1 Hypo-osmolality and hyponatremia; I46.9 Cardiac arrest, cause unspecified; I12.9 Hypertensive chronic kidney disease with stage 1 through stage 4 chronic kidney disease, or unspecified chronic kidney disease; E11.22 Type 2 diabetes mellitus with diabetic chronic kidney disease; N18.9 Chronic kidney disease, unspecified; Z68.31 Body mass index [BMI] 31.0-31.9, adult; E78.5 Hyperlipidemia, unspecified; E87.5 Hyperkalemia; F41.9 Anxiety disorder, unspecified; H91.90 Unspecified hearing loss, unspecified ear; R79.1 Abnormal coagulation profile; R45.1 Restlessness and agitation; R00.1 Bradycardia, unspecified; Z66 Do not resuscitate; T38.0X5A Adverse effect of glucocorticoids and synthetic analogues, initial encounter; Z79.4 Long term (current) use of insulin; Z79.899 Other long term (current) drug therapy; Z82.49 Family history of ischemic heart disease and other diseases of the circulatory system
CPT/HCPCS: 36410; 36600; 71045; 76937; 80048; 80051; 80053; 82330; 82565; 82728; 82803; 82805; 82947; 83036; 83605; 83615; 83625; 83735; 84100; 84132; 84478; 84520; 85025; 85027; 85379; 85610; 85730; 86140; 92950; 94002; 94640; 94660; 99291